=== PATIENT | female | born 1985 | race African-American/Black ===

== ENCOUNTER 2023-01-28 19:12 | Inpatient (IN) ==
--- NOTE | 2023-01-28 20:14 | Obstetrical Progress Note ---
Date of Service January 28, 2023 Assessment & Plan (1) Supervision of elderly primigravida: Plan: Welch bulb inserted. Cervix closed/50/-3. FHT Cat 1, toco rare. Tolerated well. Reviewed postprocedure care instructions. Will monitor FHT for one hour, if Cat 1 FHT and feeling well, ok for DC home. Subjective 37yo @ 40 3/7, here for welch balloon insertion prior to IOL. Feeling well. Hepatitis C Positive not on treatment no provider at this time RNA tests negative--francia MICHAEL *Weekly NST's @ 36wks. Rubella non immune *PPX MMR Medical Marijuana Card Covid Vaccine x 3 Late presentation Chronic Moderate Anemia in *HEME consult Results & Data Vital Signs (Past 12 Hours) Vital Signs Temp Pulse Resp BP 01/28/23 19:28 81 147/87 H 01/28/23 19:16 36.9 C 18 PG Care Time/CCT Total # of Minutes Spent Total Time Spent with Patient: Total time spent is greater than 50% in coordination of care (as documented) at patient's floor/unit and/or counseling patient: Coding Level of Care Code None Diagnoses Supervision of elderly primigravida O09.519
[2023-01-28] MEDS ORDERED: LIDOCAINE 1% LOCAL 20 ML VIAL INFIL PRN (21:12)
[2023-01-28] MEDS ORDERED: OXYTOCIN 30 UNITS/500 ML BAG IV PRN ×2 (21:12)
--- NOTE | 2023-01-28 21:18 | History & Physical Report ---
Date of Service January 28, 2023 Assessment & Plan (1) Supervision of elderly primigravida: Plan: I have recommended to Amira that she stay at L&D tonight, will check preeclampsia labs and continue monitoring. She is agreeable. Will order labs, admission, monitoring. Will allow her to eat dinner and then start pitocin. She is requesting a nicotine patch, smokes 5 cigarettes per day. History of Present Illness Chief Complaint: IOL Primary Care Provider: EUGENE Arthur 37yo @ 40 10/29, here for IOL. Hicks bulb was placed, tolerated insertion. There was a 3 minute deceleration that occurred with a prolonged contraction. The FHT returned to Cat 1, reactive. Blood pressures so far have all been elevated - 140-160s/70-80s. Allergies Allergy/AdvReac Type Severity Reaction Status Date / Time No Known Allergies Allergy Verified 01/28/23 14:57 Home Medications Medication Instructions Recorded Confirmed Type medical marijuana Card .Route 09/10/22 01/28/23 History prenat.vits,concha,tap-twsh-ssfog 1 tab PO DAILY #90 tabs 09/13/22 01/28/23 Rx ferrous gluconate 324 mg (38 mg 324 mg PO BID 11/07/22 01/28/23 History iron) tablet sertraline 50 mg tablet 50 mg PO DAILY #30 tabs 12/26/22 01/28/23 Rx Patient History Medical History Depression Family History (Updated 09/10/22 @ 07:44 by Bobbi Jade) Father Diabetes Mother Hypertension Grandmother Lung cancer Aunt Breast cancer Social History (Updated 09/10/22 @ 07:44 by Bobbi Jade) Smoking Status: Current every day smoker Cigarettes Per Day: 5; Hx Substance Use: Yes (alcohol) Substance Use Type Other:: not currently using marital status: Single marital status details: Maribel [phone] Current Living Situation: Family Current Living Situation Comment: lives alone, current occupational status: unemployed Feels Safe at Home: Yes Safety Concerns: Feels Safe At This Time Review of Systems All systems reviewed & are unremarkable except as noted in HPI & below Physical Exam Physical Exam: FHT Cat 1, with decel noted in HPI Uncertain rare SVE closed/50/-2 Constitutional: WD/WN, vitals as above Respiratory: normal respiratory effort, lungs clear to auscultation no respiratory distress Cardiovascular: Rate/Rhythm: regular rate and regular rhythm Gastrointestinal (Abdomen): Inspection/Auscultation: abdomen normal to inspection Percussion/Palpation: abdomen soft; abdomen nontender Gravid. No s/s chorio or abruption. Skin: no rashes, warm and dry Psychiatric: A+Ox3, euthymic affect Results & Data Vital Signs (Past 12 Hours) Vital Signs Temp Pulse Resp BP 01/28/23 20:58 77 163/85 H 01/28/23 20:31 73 142/75 H 01/28/23 19:28 81 147/87 H 01/28/23 19:16 36.9 C 18 Coding Level of Care Code None Diagnoses Supervision of elderly primigravida O09.519
[2023-01-28 21:55] LABS: Hemoglobin 9.7 g/dl (12.0-16.0); Mean Corpuscular Hemoglobin 24.6 pg (25.0-34.0); Mean Corpuscular Hgb Conc 33.4 g/dL (32.0-36.0); Mean Corpuscular Volume 73.4 fL (80.0-100.0); Mean Platelet Volume 10.7 fL (9.4-12.4); Platelet Count 260 K/uL (130-400); RDW Coefficient of Variation 14.6 % (11.5-14.5); RDW Standard Deviation 38.6 fL (36.4-46.3); Red Blood Count 3.95 M/uL (4.20-5.40); White Blood Count 7.27 K/ul (4.8-10.8)
[2023-01-28 22:14] LABS: Albumin Level 3.3 gm/dl (3.4-5.0); BUN Creatinine Ratio 11.7 (10-20); Bilirubin,Total 0.3 mg/dl (0.2-1.0); Creatinine Clr Calc Pharmacy 105.9 ml/min; Est GFR (African American) 115.9 ml/min; Globulin 3.3 gm/dl (2.5-4.0); Potassium 3.3 mmol/L (3.5-5.1); Total Protein 6.6 gm/dl (6.0-8.3)
[2023-01-28] MEDS: NICOTINE 14 MG/24 HR PATCH TD SCH (23:17)
[2023-01-29] MEDS: LACTATED RINGER'S 1,000 ML IV PRN ×4 (00:59→20:00)
[2023-01-29 01:07] LABS: Total Protein Urine Random < 4.0 mg/dl (0-11.9)
[2023-01-29] MEDS ORDERED: SODIUM CHLORIDE 0.9% 250 ML IV PRN (01:27)
[2023-01-29 01:35] LABS: Amphetamines+Metham, Urine Neg (Neg); Barbiturates, Urine Neg (Neg); Benzodiazepine, Urine Neg (Neg); Cocaine, Urine Neg (Neg); Creatinine Urine Random 23.4 mg/dl; MDMA (Ecstacy), Urine Neg (Neg); Methadone, Urine Neg (Neg); Opiate, Urine Neg (Neg); Phencyclidine, Urine Neg (Neg)
[2023-01-29] MEDS ORDERED: hydrALAZINE HCL 20 MG/ML VIAL IV ONE (02:05)
[2023-01-29] MEDS ORDERED: hydrALAZINE HCL 20 MG/ML VIAL IV STA (03:11)
[2023-01-29] MEDS ORDERED: hydrALAZINE HCL 20 MG/ML VIAL IV PRN (04:39)
--- NOTE | 2023-01-29 08:23 | Labor Progress Brief Note ---
Date of Service January 29, 2023 Subjective Awake, feeling ok. FHT Cat 1 [place] Q 2 SVE: welch bulb still in place BPs remain elevated, has rec'd 3 doses hydralazine overnight. Discussed with oncoming physician, will consider alternate med, could also consider trying to remove nicotine patch. Assessment & Plan Admission and Anticipated Discharge Date Admission Date: January 28, 2023 Results & Data Vital Signs (Past 12 Hours) Vital Signs Temp Pulse Resp BP 01/29/23 07:15 36.8 C 20 01/29/23 08:14 79 170/90 H 01/29/23 07:30 82 167/88 H 01/29/23 07:23 88 186/102 H 01/29/23 06:36 85 149/90 H 01/29/23 06:21 87 163/99 H 01/29/23 06:08 90 171/94 H 01/29/23 05:21 92 H 147/86 H 01/29/23 05:06 87 136/88 01/29/23 04:52 84 149/90 H 01/29/23 04:36 87 151/91 H 01/29/23 04:22 84 159/89 H 01/29/23 04:07 82 170/90 H 01/29/23 03:51 72 180/99 H 01/29/23 03:21 77 152/89 H 01/29/23 03:06 36.9 C 76 18 166/98 H 01/29/23 02:51 75 166/98 H 01/29/23 02:36 70 158/93 H 01/29/23 02:21 73 160/96 H 01/29/23 02:07 71 167/94 H 01/29/23 01:51 71 189/88 H 01/29/23 01:38 70 182/93 H 01/29/23 01:21 73 187/101 H 01/29/23 01:04 75 182/99 H 01/28/23 23:01 36.8 C 73 18 147/75 H 01/28/23 22:24 72 165/84 H 01/28/23 21:42 71 169/94 H 01/28/23 20:58 77 163/85 H 01/28/23 20:31 73 142/75 H Coding Level of Care Code None Diagnoses
[2023-01-29] MEDS ORDERED: MAG SULFATE 4GM BOLUS FROM BAG IV ONE (08:37)
--- NOTE | 2023-01-29 08:37 | Labor Progress Brief Note ---
Date of Service January 29, 2023 Subjective Patient notes she is feeling ok. no s/s of pet, however her pressures continue to be high and some in the severe range. Assessment & Plan (1) Supervision of elderly primigravida: (2) Preeclampsia: Plan Pressures continue to be elevated, not responsive to hydralazine. No s/s of pet and labs have been normal, but has had blood pressures in the severe range., persistent overnight despite treatment. I am calling her pet with severe features (bp) and will be treating with mag. r/b/se discussed with the patient. I do not think that the nicotene patch is the primary issue as pressures were elevated before the patch was placed. Patient expresses understanding. Will continue pit. fetus category one. epidural on demand. anticipate vaginal delivery. Admission and Anticipated Discharge Date Admission Date: January 28, 2023 Physical Exam Physical Exam: pulled bulb out cx--/-2 toco--q2-4min, pit at 11 efm--130s with mod variabiltiy, accels to 150s, no decels Results & Data Vital Signs (Past 12 Hours) Vital Signs Temp Pulse Resp BP 01/29/23 07:15 36.8 C 20 01/29/23 08:14 79 170/90 H 01/29/23 07:30 82 167/88 H 01/29/23 07:23 88 186/102 H 01/29/23 06:36 85 149/90 H 01/29/23 06:21 87 163/99 H 01/29/23 06:08 90 171/94 H 01/29/23 05:21 92 H 147/86 H 01/29/23 05:06 87 136/88 01/29/23 04:52 84 149/90 H 01/29/23 04:36 87 151/91 H 01/29/23 04:22 84 159/89 H 01/29/23 04:07 82 170/90 H 01/29/23 03:51 72 180/99 H 01/29/23 03:21 77 152/89 H 01/29/23 03:06 36.9 C 76 18 166/98 H 01/29/23 02:51 75 166/98 H 01/29/23 02:36 70 158/93 H 01/29/23 02:21 73 160/96 H 01/29/23 02:07 71 167/94 H 01/29/23 01:51 71 189/88 H 01/29/23 01:38 70 182/93 H 01/29/23 01:21 73 187/101 H 01/29/23 01:04 75 182/99 H 01/28/23 23:01 36.8 C 73 18 147/75 H 01/28/23 22:24 72 165/84 H 01/28/23 21:42 71 169/94 H 01/28/23 20:58 77 163/85 H Coding Level of Care Code None Diagnoses Supervision of elderly primigravida O09.519 Preeclampsia O14.90
[2023-01-29] MEDS: MAGNESIUM SULFATE / WTR 40 GM/1,000 ML BAG IV SCH (09:05)
[2023-01-29] MEDS: NICOTINE 14 MG/24 HR PATCH TD SCH (09:32)
[2023-01-29] MEDS ORDERED: LABETALOL HCL IV 5 MG/ML 20ML IV STA (10:03)
--- NOTE | 2023-01-29 10:05 | Communication Note ---
Date of Service: January 29, 2023 Patient resting in the room. She denies significant discomfort. Denies s/s of PET. Has received her bolus of mag and now on 2/hr. Her pressures continue to be elevated. Plan to treat with labetolol.
[2023-01-29] MEDS ORDERED: Nursing to Pharmacy Communication SCH (11:00)
[2023-01-29] MEDS ORDERED: BUPIVACAINE 0.25% PF 30 ML VIAL ONE (12:02)
[2023-01-29] MEDS ORDERED: SODIUM CHLORIDE 0.9% PF INJ 10 ML VIAL ONE (12:02)
[2023-01-29] MEDS ORDERED: ePHEDrine sulfate 50 MG/ML AMP ONE (12:02)
[2023-01-29] MEDS ORDERED: fentaNYL citrate PF 100 MCG/2 ML VIAL ONE (12:02)
[2023-01-29] MEDS ORDERED: LIDOCAINE 2%/EPINEPHRINE 1:200,000 20 ML PF ONE (12:03)
[2023-01-29] MEDS ORDERED: fentaNYL 2MCG/ML ROPIVACAINE 1.25MG/ML 100 ML BAG EPI ONE (12:03)
[2023-01-29] MEDS ORDERED: fentaNYL 2MCG/ML ROPIVACAINE 1.25MG/ML 100 ML BAG EPI PRN (12:25)
[2023-01-29] MEDS ORDERED: BUPIVACAINE 0.25% PF 30 ML VIAL EPI PRN (12:25)
[2023-01-29] MEDS ORDERED: LIDOCAINE 2% MPF LOCAL 5 ML VIAL EPI PRN (12:25)
[2023-01-29] MEDS ORDERED: NALOXONE HCL 0.4 MG/1 ML VIAL/CARP IV PRN (12:25)
[2023-01-29] MEDS ORDERED: SODIUM CHLORIDE 0.9% PF INJ 10 ML VIAL EPI STA (12:25)
[2023-01-29] MEDS ORDERED: BUPIVACAINE 0.25% PF 30 ML VIAL EPI STA (12:25)
[2023-01-29] MEDS ORDERED: SODIUM CHLORIDE 0.9% PF INJ 10 ML VIAL EPI PRN (12:25)
[2023-01-29] MEDS ORDERED: NALBUPHINE HCL INJ 10 MG/ML AMP IV PRN (12:25)
[2023-01-29] MEDS ORDERED: fentaNYL citrate PF 100 MCG/2 ML VIAL EPI STA (12:25)
[2023-01-29] MEDS ORDERED: LIDOCAINE 2%/EPINEPHRINE 1:200,000 20 ML PF EPI STA (12:25)
[2023-01-29] MEDS ORDERED: fentaNYL citrate PF 100 MCG/2 ML VIAL EPI PRN (12:25)
[2023-01-29] MEDS ORDERED: NALOXONE HCL 1 MG in SODIUM CHLORIDE 0.9% 1000ML 1,000 ML IV PRN (12:25)
[2023-01-29] MEDS ORDERED: ROPIVACAINE 0.5% PF 5 MG/ML 20 ML VIAL EPI PRN (12:25)
[2023-01-29] MEDS ORDERED: ePHEDrine sulfate 50 MG/ML AMP IV PRN (12:25)
[2023-01-29] MEDS ORDERED: diphenhydrAMINE 50 MG/ML VIAL IV PRN (12:25)
--- NOTE | 2023-01-29 12:28 | Anesthesiology Consultation ---
Date of Service January 29, 2023 Assessment & Plan (1) Encounter for pre-operative examination: Chart Review Chart Review: Patient NOT seen in Pre Admission Testing and Acceptable Risk for Labor Epidural Consults Requested none History Height/Weight Height: 5 ft 5 in Weight: 78.925 kg Allergies Allergy/AdvReac Type Severity Reaction Status Date / Time No Known Allergies Allergy Verified 01/28/23 14:57 Medications Home Medications Medication Instructions Recorded Confirmed Last Taken medical marijuana Card .Route 09/10/22 01/28/23 Unknown prenat.vits,concha,yke-ixds-ishkw 1 tab PO DAILY #90 tabs 09/13/22 01/28/23 01/28/23 ferrous gluconate 324 mg (38 mg 324 mg PO BID 11/07/22 01/28/23 01/28/23 iron) tablet sertraline 50 mg tablet 50 mg PO DAILY #30 tabs 12/26/22 01/28/23 01/28/23 Active Medications Generic Name Dose Route Start Last Admin Trade Name Freq PRN Reason Stop Dose Admin Lactated Ringer's 1,000 mls @ 125 mls/hr 01/28/23 21:12 01/29/23 12:00 Lr IV 01/30/23 21:11 999 mls/hr .Q8H PRN Infusion L&D Protocol Protocol Oxytocin 30 units in 500 mls @ 19 mls/hr 01/28/23 21:12 01/29/23 11:15 Pitocin IV 01/30/23 21:11 1.14 units/hr .Q24H PRN 19 mls/hr Labor Induction/Augmentation Titration Protocol 1.14 UNITS/HR Magnesium Sulfate 40 gm in 1,000 mls @ 50 mls/hr 01/29/23 08:45 01/29/23 09:35 Magnesium Sulfate / Wtr IV 02/28/23 08:44 50 mls/hr .Q20H YANELIS Infusion Past Medical History Medical History (Updated 01/29/23 @ 12:28 by Vishal Delgadillo MD) Depression Encounter for pre-operative examination Exercise / Class Metabolic Activity II 4-5 Yardwork/Stairs/Walk up hill Past Family History Family History Father Diabetes Mother Hypertension Grandmother Lung cancer Aunt Breast cancer Past Anesthesia History No Hx of Anesthesia Complications and No Family Hx of Anesthesia Complications Social History Smoking Status: Current every day smoker tobacco type: cigarettes Smoking cigarettes per day: 5 Hx Substance Use: Yes (alcohol) substance use type: marijuana Substance Use Type Other:: not currently using Physical Exam Vital Signs Last Vital Signs Temp 36.9 C 01/29/23 11:06 Pulse 86 01/29/23 13:03 Resp 20 01/29/23 12:10 BP 176/98 H 01/29/23 13:03 Pulse Ox 100 01/29/23 13:01 Testing Laboratory Results 01/28/23 21:25 01/28/23 21:25 Blood Type O Positive 01/28/23 21:25 Antibody Screen NEGATIVE 01/28/23 21:25
[2023-01-29] MEDS: ONDANSETRON INJ 2 MG/ML 2 ML VIAL IV PRN ×2 (13:51→20:17)
--- NOTE | 2023-01-29 15:01 | Labor Progress Brief Note ---
Date of Service January 29, 2023 Subjective comfortable, sleepy Assessment & Plan (1) Preeclampsia: (2) Supervision of elderly primigravida: Plan continue current management. fetus category one. anticipate Admission and Anticipated Discharge Date Admission Date: January 28, 2023 Physical Exam Physical Exam: cx--/-2 arom--clear toco-q2-4, pit at 19 efm--130s with mod variability, small accels , no decels Results & Data Vital Signs (Past 12 Hours) Vital Signs Temp Pulse Resp BP Pulse Ox 01/29/23 14:10 20 01/29/23 12:10 20 01/29/23 09:10 20 01/29/23 13:10 20 01/29/23 11:06 36.9 C 01/29/23 11:10 01/29/23 10:10 20 01/29/23 07:15 20 01/29/23 07:15 36.8 C 20 01/29/23 14:56 83 100 01/29/23 14:55 83 169/80 H 01/29/23 14:51 76 100 01/29/23 14:46 67 100 01/29/23 14:41 69 100 01/29/23 14:39 70 151/77 H 01/29/23 14:36 67 100 01/29/23 14:30 20 01/29/23 14:30 20 01/29/23 14:31 74 100 01/29/23 14:26 73 100 01/29/23 14:25 69 151/82 H 01/29/23 14:21 77 100 01/29/23 14:16 78 100 01/29/23 14:11 75 100 01/29/23 14:00 20 01/29/23 14:00 20 01/29/23 14:10 80 143/81 H 01/29/23 14:06 79 100 01/29/23 14:01 84 99 01/29/23 13:56 94 H 100 01/29/23 13:54 94 H 134/77 01/29/23 13:51 124 H 100 01/29/23 13:46 123 H 100 01/29/23 13:41 119 H 100 01/29/23 13:38 88 121/73 01/29/23 13:36 88 100 01/29/23 13:31 95 H 20 100 01/29/23 13:30 101 H 125/83 01/29/23 13:26 113 H 100 01/29/23 13:23 99 H 164/98 H 01/29/23 13:22 93 H 152/87 H 01/29/23 13:21 89 100 01/29/23 13:19 87 155/89 H 01/29/23 13:18 86 148/89 H 01/29/23 13:16 78 100 01/29/23 13:15 74 20 163/96 H 01/29/23 13:13 81 162/102 H 01/29/23 13:11 85 152/95 H 100 01/29/23 13:09 84 170/85 H 01/29/23 13:07 80 163/103 H 01/29/23 13:06 100 01/29/23 13:06 82 01/29/23 13:06 80 162/97 H 01/29/23 13:03 86 176/98 H 01/29/23 13:01 87 100 01/29/23 13:00 86 168/97 H 01/29/23 12:57 85 189/103 H 01/29/23 12:56 93 H 99 01/29/23 12:51 87 100 01/29/23 12:49 87 170/102 H 01/29/23 12:46 90 100 01/29/23 12:41 85 100 01/29/23 12:36 82 100 01/29/23 12:34 90 169/93 H 01/29/23 12:31 80 100 01/29/23 12:26 85 100 01/29/23 12:21 88 100 01/29/23 12:20 81 175/79 H 01/29/23 12:16 89 100 01/29/23 12:11 83 100 01/29/23 12:06 88 100 01/29/23 12:05 86 166/81 H 01/29/23 12:01 87 100 01/29/23 11:56 84 100 01/29/23 11:51 81 100 01/29/23 11:49 83 154/82 H 01/29/23 11:46 88 99 01/29/23 11:41 80 99 01/29/23 11:36 85 100 01/29/23 11:34 84 140/74 01/29/23 11:31 86 99 01/29/23 11:26 80 100 01/29/23 11:21 81 100 01/29/23 11:19 86 143/75 H 01/29/23 11:16 82 99 01/29/23 11:11 86 99 01/29/23 11:06 90 99 01/29/23 11:04 85 140/75 01/29/23 11:01 80 100 01/29/23 10:56 89 99 01/29/23 10:51 84 99 01/29/23 10:49 88 156/90 H 01/29/23 10:46 88 99 01/29/23 10:41 89 99 01/29/23 10:36 81 99 01/29/23 10:31 78 100 01/29/23 10:32 81 145/89 H 01/29/23 10:28 77 159/90 H 01/29/23 10:26 88 100 01/29/23 10:21 80 173/90 H 100 01/29/23 10:16 84 100 01/29/23 10:11 91 H 100 01/29/23 10:06 80 163/102 H 100 01/29/23 10:02 81 166/101 H 01/29/23 10:01 80 100 01/29/23 09:56 96 H 100 01/29/23 09:51 82 100 01/29/23 09:52 86 20 182/108 H 01/29/23 09:46 82 100 01/29/23 09:41 83 100 01/29/23 09:36 99 H 20 165/94 H 100 01/29/23 09:31 96 H 99 01/29/23 09:26 93 H 100 01/29/23 09:21 85 100 01/29/23 09:22 85 20 169/93 H 01/29/23 09:16 87 100 01/29/23 09:11 97 H 100 01/29/23 09:06 36.8 C 90 20 184/111 H 98 01/29/23 08:44 85 189/107 H 01/29/23 08:14 79 170/90 H 01/29/23 07:30 82 167/88 H 01/29/23 07:23 88 186/102 H 01/29/23 06:36 85 149/90 H 01/29/23 06:21 87 163/99 H 01/29/23 06:08 90 171/94 H 01/29/23 05:21 92 H 147/86 H 01/29/23 05:06 87 136/88 01/29/23 04:52 84 149/90 H 01/29/23 04:36 87 151/91 H 01/29/23 04:22 84 159/89 H 01/29/23 04:07 82 170/90 H 01/29/23 03:51 72 180/99 H 01/29/23 03:21 77 152/89 H 01/29/23 03:06 36.9 C 76 18 166/98 H Coding Level of Care Code None Diagnoses Preeclampsia O14.90 Supervision of elderly primigravida O09.519
--- NOTE | 2023-01-29 18:25 | Labor Progress Brief Note ---
Date of Service January 29, 2023 Subjective Got epidural. Comfortable. Assessment & Plan (1) Preeclampsia: (2) Supervision of elderly primigravida: Plan No change, iupc placed. cx feels a little swollen. fetus category one. aim for 200mvus. Blood pressures have remained reasonable, mostly 150/80-90. Admission and Anticipated Discharge Date Admission Date: January 28, 2023 Physical Exam Physical Exam: cx--3-4/90/-2 iupc placed. toco--q3-4, pit at 19 efm--130s with mod variabiltiy, small accels. occasional early Results & Data Vital Signs (Past 12 Hours) Vital Signs Temp Pulse Resp BP Pulse Ox 01/29/23 16:10 20 01/29/23 17:10 20 01/29/23 17:00 36.9 C 01/29/23 15:00 37.0 C 01/29/23 15:10 20 01/29/23 14:10 01/29/23 12:10 01/29/23 09:10 20 01/29/23 13:10 01/29/23 11:06 36.9 C 20 01/29/23 11:10 01/29/23 10:10 20 01/29/23 07:15 20 01/29/23 07:15 36.8 C 20 01/29/23 18:21 88 01/29/23 18:16 78 99 01/29/23 18:11 79 100 01/29/23 18:08 77 151/80 H 01/29/23 18:06 80 99 01/29/23 18:01 73 01/29/23 17:56 77 01/29/23 17:54 70 161/76 H 01/29/23 17:51 72 100 01/29/23 17:46 74 01/29/23 17:41 88 100 01/29/23 17:39 80 143/83 H 01/29/23 17:36 77 100 01/29/23 17:31 78 100 01/29/23 17:26 82 100 01/29/23 17:25 76 158/79 H 01/29/23 17:21 86 100 01/29/23 17:16 73 100 01/29/23 17:11 76 100 01/29/23 17:09 77 168/97 H 01/29/23 17:06 78 100 01/29/23 17:01 80 20 100 01/29/23 16:56 83 100 01/29/23 16:54 80 158/86 H 01/29/23 16:51 79 100 01/29/23 16:46 76 100 01/29/23 16:41 86 99 01/29/23 16:40 83 143/72 H 01/29/23 16:36 91 H 100 01/29/23 16:31 80 20 99 01/29/23 16:26 77 98 01/29/23 16:24 77 138/84 01/29/23 16:21 75 99 01/29/23 16:16 78 100 01/29/23 16:11 73 100 01/29/23 16:09 74 150/83 H 01/29/23 16:06 78 100 01/29/23 16:01 78 20 100 01/29/23 15:56 81 100 01/29/23 15:55 78 143/92 H 01/29/23 15:51 75 100 01/29/23 15:46 76 100 01/29/23 15:41 77 100 01/29/23 15:38 74 144/81 H 01/29/23 15:36 79 100 01/29/23 15:31 77 20 100 01/29/23 15:26 79 100 01/29/23 15:25 81 145/86 H 01/29/23 15:21 75 100 01/29/23 15:16 73 100 01/29/23 15:11 73 100 01/29/23 15:09 75 147/93 H 01/29/23 15:06 81 100 01/29/23 15:01 92 H 100 01/29/23 14:56 83 100 01/29/23 14:55 83 169/80 H 01/29/23 14:51 76 100 01/29/23 14:46 67 100 01/29/23 14:41 69 100 01/29/23 14:39 70 151/77 H 01/29/23 14:36 67 100 01/29/23 14:30 20 01/29/23 14:30 20 01/29/23 14:31 74 100 01/29/23 14:26 73 100 01/29/23 14:25 69 151/82 H 01/29/23 14:21 77 100 01/29/23 14:16 78 100 01/29/23 14:11 75 100 01/29/23 14:00 20 01/29/23 14:00 20 01/29/23 14:10 80 143/81 H 01/29/23 14:06 79 100 01/29/23 14:01 84 99 01/29/23 13:56 94 H 100 01/29/23 13:54 94 H 134/77 01/29/23 13:51 124 H 100 01/29/23 13:46 123 H 100 01/29/23 13:41 119 H 100 01/29/23 13:38 88 121/73 01/29/23 13:36 88 100 01/29/23 13:31 95 H 20 100 01/29/23 13:30 101 H 125/83 01/29/23 13:26 113 H 100 01/29/23 13:23 99 H 164/98 H 01/29/23 13:22 93 H 152/87 H 01/29/23 13:21 89 100 01/29/23 13:19 87 155/89 H 01/29/23 13:18 86 148/89 H 01/29/23 13:16 78 100 01/29/23 13:15 74 20 163/96 H 01/29/23 13:13 81 162/102 H 01/29/23 13:11 85 152/95 H 100 01/29/23 13:09 84 170/85 H 01/29/23 13:07 80 163/103 H 01/29/23 13:06 100 01/29/23 13:06 82 01/29/23 13:06 80 162/97 H 01/29/23 13:03 86 176/98 H 01/29/23 13:01 87 100 01/29/23 13:00 86 168/97 H 01/29/23 12:57 85 189/103 H 01/29/23 12:56 93 H 99 01/29/23 12:51 87 100 01/29/23 12:49 87 170/102 H 01/29/23 12:46 90 100 01/29/23 12:41 85 100 01/29/23 12:36 82 100 01/29/23 12:34 90 169/93 H 01/29/23 12:31 80 100 06/07/23 12:26 85 100 01/29/23 12:21 88 100 01/29/23 12:20 81 175/79 H 01/29/23 12:16 89 100 01/29/23 12:11 83 100 01/29/23 12:06 88 100 01/29/23 12:05 86 166/81 H 01/29/23 12:01 87 100 01/29/23 11:56 84 100 01/29/23 11:51 81 100 01/29/23 11:49 83 154/82 H 01/29/23 11:46 88 99 01/29/23 11:41 80 99 01/29/23 11:36 85 100 01/29/23 11:34 84 140/74 01/29/23 11:31 86 99 01/29/23 11:26 80 100 01/29/23 11:21 81 100 01/29/23 11:19 86 143/75 H 01/29/23 11:16 82 99 01/29/23 11:11 86 99 01/29/23 11:06 90 99 01/29/23 11:04 85 140/75 01/29/23 11:01 80 100 01/29/23 10:56 89 99 01/29/23 10:51 84 99 01/29/23 10:49 88 156/90 H 01/29/23 10:46 88 99 01/29/23 10:41 89 99 01/29/23 10:36 81 99 01/29/23 10:31 78 100 01/29/23 10:32 81 145/89 H 01/29/23 10:28 77 159/90 H 01/29/23 10:26 88 100 01/29/23 10:21 80 173/90 H 100 01/29/23 10:16 84 100 01/29/23 10:11 91 H 100 01/29/23 10:06 80 163/102 H 100 01/29/23 10:02 81 166/101 H 01/29/23 10:01 80 100 01/29/23 09:56 96 H 100 01/29/23 09:51 82 100 01/29/23 09:52 86 20 182/108 H 01/29/23 09:46 82 100 01/29/23 09:41 83 100 01/29/23 09:36 99 H 20 165/94 H 100 01/29/23 09:31 96 H 99 01/29/23 09:26 93 H 100 01/29/23 09:21 85 100 01/29/23 09:22 85 20 169/93 H 01/29/23 09:16 87 100 01/29/23 09:11 97 H 100 01/29/23 09:06 36.8 C 90 20 184/111 H 98 01/29/23 08:44 85 189/107 H 01/29/23 08:14 79 170/90 H 01/29/23 07:30 82 167/88 H 01/29/23 07:23 88 186/102 H 01/29/23 06:36 85 149/90 H Coding Level of Care Code None Diagnoses Preeclampsia O14.90 Supervision of elderly primigravida O09.519
[2023-01-29] MEDS ORDERED: NURSING L&D Epidural Breakthrough Pain Update ONE (21:25)
--- NOTE | 2023-01-29 21:34 | Labor Progress Brief Note ---
Date of Service January 29, 2023 Subjective uncomfortable with contractions now Assessment & Plan (1) Preeclampsia: (2) Supervision of elderly primigravida: Plan bps have been stable overall, continue to monitor closely, mag running. fetus overall reassuring. redose epidural. Admission and Anticipated Discharge Date Admission Date: January 28, 2023 Physical Exam Physical Exam: cx--/-2 toco--q2-4min, pit at 19, mvus>200 efm--130s wtih mod variability, accels present, early variable with some contractions. Results & Data Vital Signs (Past 12 Hours) Vital Signs Temp Pulse Resp BP Pulse Ox O2 Del Method 01/29/23 19:20 37.1 C 18 01/29/23 19:20 18 01/29/23 19:20 Room Air 01/29/23 18:10 20 01/29/23 16:10 20 01/29/23 17:10 20 01/29/23 17:00 36.9 C 01/29/23 15:00 37.0 C 01/29/23 15:10 20 01/29/23 14:10 20 01/29/23 12:10 20 01/29/23 13:10 20 01/29/23 11:06 36.9 C 20 01/29/23 11:10 20 01/29/23 10:10 20 01/29/23 21:26 104 H 99 01/29/23 21:23 111 H 171/83 H 01/29/23 21:21 128 H 99 01/29/23 21:16 97 H 100 01/29/23 21:11 88 99 01/29/23 21:09 88 156/80 H 01/29/23 21:06 87 100 01/29/23 21:01 85 100 01/29/23 20:56 87 100 01/29/23 20:53 89 173/99 H 01/29/23 20:51 89 100 01/29/23 20:46 86 100 01/29/23 20:41 93 H 100 01/29/23 20:39 89 153/97 H 01/29/23 20:36 88 100 01/29/23 20:31 93 H 98 01/29/23 20:26 93 H 99 01/29/23 20:21 106 H 100 01/29/23 20:16 98 H 100 01/29/23 20:11 124 H 100 01/29/23 20:08 90 138/68 01/29/23 20:06 86 100 01/29/23 20:01 83 100 01/29/23 19:56 85 100 01/29/23 19:54 84 163/77 H 01/29/23 19:51 85 100 01/29/23 19:46 90 100 01/29/23 19:41 98 H 100 01/29/23 19:36 91 H 100 01/29/23 19:31 94 H 100 01/29/23 19:26 91 H 100 01/29/23 19:24 96 H 174/104 H 01/29/23 19:21 89 100 01/29/23 19:16 92 H 100 01/29/23 19:11 89 100 01/29/23 19:08 89 168/94 H 01/29/23 19:06 97 H 100 01/29/23 19:01 90 99 01/29/23 18:56 87 99 01/29/23 18:54 82 176/95 H 01/29/23 18:51 85 100 01/29/23 18:46 84 100 01/29/23 18:41 98 H 96 01/29/23 18:38 37.0 C 83 20 165/92 H 01/29/23 18:36 98 H 100 01/29/23 18:31 88 100 01/29/23 18:26 86 100 01/29/23 18:24 88 175/94 H 01/29/23 18:21 88 100 01/29/23 18:16 78 99 01/29/23 18:11 79 100 01/29/23 18:08 77 151/80 H 01/29/23 18:06 80 99 01/29/23 18:01 73 100 01/29/23 17:56 77 100 01/29/23 17:54 70 161/76 H 01/29/23 17:51 72 100 01/29/23 17:46 74 100 01/29/23 17:41 88 100 01/29/23 17:39 80 143/83 H 01/29/23 17:36 77 100 01/29/23 17:31 78 100 01/29/23 17:26 82 100 01/29/23 17:25 76 158/79 H 01/29/23 17:21 86 100 01/29/23 17:16 73 100 01/29/23 17:11 76 100 01/29/23 17:09 77 168/97 H 01/29/23 17:06 78 100 01/29/23 17:01 80 20 100 01/29/23 16:56 83 100 01/29/23 16:54 80 158/86 H 01/29/23 16:51 79 100 01/29/23 16:46 76 100 01/29/23 16:41 86 99 01/29/23 16:40 83 143/72 H 01/29/23 16:36 91 H 100 01/29/23 16:31 80 20 99 01/29/23 16:26 77 98 01/29/23 16:24 77 138/84 01/29/23 16:21 75 99 01/29/23 16:16 78 100 01/29/23 16:11 73 100 01/29/23 16:09 74 150/83 H 01/29/23 16:06 78 100 01/29/23 16:01 78 20 100 01/29/23 15:56 81 100 01/29/23 15:55 78 143/92 H 01/29/23 15:51 75 100 01/29/23 15:46 76 100 01/29/23 15:41 77 100 01/29/23 15:38 74 144/81 H 01/29/23 15:36 79 100 01/29/23 15:31 77 20 100 01/29/23 15:26 79 100 01/29/23 15:25 81 145/86 H 01/29/23 15:21 75 100 01/29/23 15:16 73 100 01/29/23 15:11 73 100 01/29/23 15:09 75 147/93 H 01/29/23 15:06 81 100 01/29/23 15:01 92 H 100 01/29/23 14:56 83 100 01/29/23 14:55 83 169/80 H 01/29/23 14:51 76 100 01/29/23 14:46 67 100 01/29/23 14:41 69 100 01/29/23 14:39 70 151/77 H 01/29/23 14:36 67 100 01/29/23 14:30 20 01/29/23 14:30 20 06/07/23 14:31 74 100 01/29/23 14:26 73 100 01/29/23 14:25 69 151/82 H 01/29/23 14:21 77 100 01/29/23 14:16 78 100 01/29/23 14:11 75 100 01/29/23 14:00 20 01/29/23 14:00 20 01/29/23 14:10 80 143/81 H 01/29/23 14:06 79 100 01/29/23 14:01 84 99 01/29/23 13:56 94 H 100 01/29/23 13:54 94 H 134/77 01/29/23 13:51 124 H 100 01/29/23 13:46 123 H 100 01/29/23 13:41 119 H 100 01/29/23 13:38 88 121/73 01/29/23 13:36 88 100 01/29/23 13:31 95 H 20 100 01/29/23 13:30 101 H 125/83 01/29/23 13:26 113 H 100 01/29/23 13:23 99 H 164/98 H 01/29/23 13:22 93 H 152/87 H 01/29/23 13:21 89 100 01/29/23 13:19 87 155/89 H 01/29/23 13:18 86 148/89 H 01/29/23 13:16 78 100 01/29/23 13:15 74 20 163/96 H 01/29/23 13:13 81 162/102 H 01/29/23 13:11 85 152/95 H 100 01/29/23 13:09 84 170/85 H 01/29/23 13:07 80 163/103 H 01/29/23 13:06 100 01/29/23 13:06 82 01/29/23 13:06 80 162/97 H 01/29/23 13:03 86 176/98 H 01/29/23 13:01 87 100 01/29/23 13:00 86 168/97 H 01/29/23 12:57 85 189/103 H 01/29/23 12:56 93 H 99 01/29/23 12:51 87 100 01/29/23 12:49 87 170/102 H 01/29/23 12:46 90 100 01/29/23 12:41 85 100 01/29/23 12:36 82 100 01/29/23 12:34 90 169/93 H 01/29/23 12:31 80 100 01/29/23 12:26 85 100 01/29/23 12:21 88 100 01/29/23 12:20 81 175/79 H 01/29/23 12:16 89 100 01/29/23 12:11 83 100 01/29/23 12:06 88 100 01/29/23 12:05 86 166/81 H 01/29/23 12:01 87 100 01/29/23 11:56 84 100 01/29/23 11:51 81 100 01/29/23 11:49 83 154/82 H 01/29/23 11:46 88 99 01/29/23 11:41 80 99 01/29/23 11:36 85 100 01/29/23 11:34 84 140/74 01/29/23 11:31 86 99 01/29/23 11:26 80 100 01/29/23 11:21 81 100 01/29/23 11:19 86 143/75 H 01/29/23 11:16 82 99 01/29/23 11:11 86 99 01/29/23 11:06 90 99 01/29/23 11:04 85 140/75 01/29/23 11:01 80 100 01/29/23 10:56 89 99 01/29/23 10:51 84 99 01/29/23 10:49 88 156/90 H 01/29/23 10:46 88 99 01/29/23 10:41 89 99 01/29/23 10:36 81 99 01/29/23 10:31 78 100 01/29/23 10:32 81 145/89 H 01/29/23 10:28 77 159/90 H 01/29/23 10:26 88 100 01/29/23 10:21 80 173/90 H 100 01/29/23 10:16 84 100 01/29/23 10:11 91 H 100 01/29/23 10:06 80 163/102 H 100 01/29/23 10:02 81 166/101 H 01/29/23 10:01 80 100 01/29/23 09:56 96 H 100 01/29/23 09:51 82 100 01/29/23 09:52 86 20 182/108 H 01/29/23 09:46 82 100 01/29/23 09:41 83 100 01/29/23 09:36 99 H 20 165/94 H 100 Coding Level of Care Code None Diagnoses Preeclampsia O14.90 Supervision of elderly primigravida O09.519
--- NOTE | 2023-01-29 22:18 | Communication Note ---
Date of Service: January 29, 2023 pt with increasing pain despite hitting her bolus function. gave her a total of 8ml of 0.25% bup in divided doses via epidural. also gave additional 2ml of 2% lidocaine. vss. pain improved. patient able to fall asleep.
[2023-01-29] MEDS ORDERED: PROMETHAZINE HCL 6.25 MG in SODIUM CHLORIDE 0.9% 50 ML IV PRN (23:19)
--- NOTE | 2023-01-29 23:23 | Labor Progress Brief Note ---
Date of Service January 29, 2023 Subjective uncomfortable. Got a redose which worked for a few minutes and now painful. Describes in her butt. Assessment & Plan (1) Preeclampsia: (2) Supervision of elderly primigravida: Plan making good progress now. Will consult anesthesia again. fetus overall category one. bps more elevated but she is uncomfortable and writhing in bed at times so suspect that is contributing. Admission and Anticipated Discharge Date Admission Date: January 28, 2023 Physical Exam Physical Exam: cx--8/100/0 toco--q2-4min, pit at 19 efm--120s with mod varability, small accels, +scalp stim, decels with vomiting Results & Data Vital Signs (Past 12 Hours) Vital Signs Temp Pulse Resp BP Pulse Ox O2 Del Method 01/29/23 19:20 37.1 C 18 01/29/23 19:20 18 01/29/23 19:20 Room Air 01/29/23 18:10 20 01/29/23 16:10 20 01/29/23 17:10 20 01/29/23 17:00 36.9 C 01/29/23 15:00 37.0 C 01/29/23 15:10 20 01/29/23 14:10 20 01/29/23 12:10 20 01/29/23 13:10 20 01/29/23 23:14 101 H 97 01/29/23 23:09 103 H 98 01/29/23 23:04 110 H 100 01/29/23 22:59 120 H 100 01/29/23 22:55 96 H 180/102 H 01/29/23 22:54 99 H 100 01/29/23 22:49 92 H 98 01/29/23 22:44 94 H 100 01/29/23 22:39 101 H 100 01/29/23 22:38 100 H 147/101 H 01/29/23 22:34 93 H 99 01/29/23 22:29 97 H 99 01/29/23 22:24 95 H 99 01/29/23 22:16 98 H 99 01/29/23 22:11 94 H 97 01/29/23 22:08 99 H 157/83 H 01/29/23 22:06 98 H 97 01/29/23 22:03 100 H 167/88 H 01/29/23 22:01 98 H 97 01/29/23 21:59 97 H 151/86 H 01/29/23 21:56 95 01/29/23 21:56 101 H 01/29/23 21:56 99 H 93 01/29/23 21:55 100 H 178/103 H 01/29/23 21:51 101 H 98 01/29/23 21:52 100 H 168/93 H 01/29/23 21:49 100 H 169/91 H 01/29/23 21:46 99 H 96 01/29/23 21:47 100 H 176/93 H 01/29/23 21:43 100 H 160/95 H 01/29/23 21:41 98 H 98 01/29/23 21:40 104 H 141/105 H 01/29/23 21:36 109 H 99 01/29/23 21:31 110 H 99 01/29/23 21:26 104 H 99 01/29/23 21:23 111 H 171/83 H 01/29/23 21:21 128 H 99 01/29/23 21:16 97 H 100 01/29/23 21:11 88 99 01/29/23 21:09 36.9 C 88 18 156/80 H 01/29/23 21:06 87 100 01/29/23 21:01 85 100 01/29/23 20:56 87 100 01/29/23 20:53 89 173/99 H 01/29/23 20:51 89 100 01/29/23 20:46 86 100 01/29/23 20:41 93 H 100 01/29/23 20:39 89 153/97 H 01/29/23 20:36 88 100 01/29/23 20:31 93 H 98 01/29/23 20:26 93 H 99 01/29/23 20:21 106 H 100 01/29/23 20:16 98 H 100 01/29/23 20:11 124 H 100 01/29/23 20:08 90 138/68 01/29/23 20:06 86 100 01/29/23 20:01 83 100 01/29/23 19:56 85 100 01/29/23 19:54 84 163/77 H 01/29/23 19:51 85 100 01/29/23 19:46 90 100 01/29/23 19:41 98 H 100 06/07/23 19:36 91 H 100 01/29/23 19:31 94 H 100 01/29/23 19:26 91 H 100 01/29/23 19:24 96 H 174/104 H 01/29/23 19:21 89 100 01/29/23 19:16 92 H 100 01/29/23 19:11 89 100 01/29/23 19:08 89 168/94 H 01/29/23 19:06 97 H 100 01/29/23 19:01 90 99 01/29/23 18:56 87 99 01/29/23 18:54 82 176/95 H 01/29/23 18:51 85 100 01/29/23 18:46 84 100 01/29/23 18:41 98 H 96 01/29/23 18:38 37.0 C 83 20 165/92 H 01/29/23 18:36 98 H 100 01/29/23 18:31 88 100 01/29/23 18:26 86 100 01/29/23 18:24 88 175/94 H 01/29/23 18:21 88 100 01/29/23 18:16 78 99 01/29/23 18:11 79 100 01/29/23 18:08 77 151/80 H 01/29/23 18:06 80 99 01/29/23 18:01 73 100 01/29/23 17:56 77 100 01/29/23 17:54 70 161/76 H 01/29/23 17:51 72 100 01/29/23 17:46 74 100 01/29/23 17:41 88 100 01/29/23 17:39 80 143/83 H 01/29/23 17:36 77 100 01/29/23 17:31 78 100 01/29/23 17:26 82 100 01/29/23 17:25 76 158/79 H 01/29/23 17:21 86 100 01/29/23 17:16 73 100 01/29/23 17:11 76 100 01/29/23 17:09 77 168/97 H 01/29/23 17:06 78 100 01/29/23 17:01 80 20 100 01/29/23 16:56 83 100 01/29/23 16:54 80 158/86 H 01/29/23 16:51 79 100 01/29/23 16:46 76 100 01/29/23 16:41 86 99 01/29/23 16:40 83 143/72 H 01/29/23 16:36 91 H 100 01/29/23 16:31 80 20 99 01/29/23 16:26 77 98 01/29/23 16:24 77 138/84 01/29/23 16:21 75 99 01/29/23 16:16 78 100 01/29/23 16:11 73 100 01/29/23 16:09 74 150/83 H 01/29/23 16:06 78 100 01/29/23 16:01 78 20 100 01/29/23 15:56 81 100 01/29/23 15:55 78 143/92 H 01/29/23 15:51 75 100 01/29/23 15:46 76 100 01/29/23 15:41 77 100 01/29/23 15:38 74 144/81 H 01/29/23 15:36 79 100 01/29/23 15:31 77 20 100 01/29/23 15:26 79 100 01/29/23 15:25 81 145/86 H 01/29/23 15:21 75 100 01/29/23 15:16 73 100 01/29/23 15:11 73 100 01/29/23 15:09 75 147/93 H 01/29/23 15:06 81 100 01/29/23 15:01 92 H 100 01/29/23 14:56 83 100 01/29/23 14:55 83 169/80 H 01/29/23 14:51 76 100 01/29/23 14:46 67 100 01/29/23 14:41 69 100 01/29/23 14:39 70 151/77 H 01/29/23 14:36 67 100 01/29/23 14:30 20 01/29/23 14:30 20 01/29/23 14:31 74 100 01/29/23 14:26 73 100 01/29/23 14:25 69 151/82 H 01/29/23 14:21 77 100 01/29/23 14:16 78 100 01/29/23 14:11 75 100 01/29/23 14:00 20 01/29/23 14:00 20 01/29/23 14:10 80 143/81 H 06/07/23 14:06 79 100 01/29/23 14:01 84 99 01/29/23 13:56 94 H 100 01/29/23 13:54 94 H 134/77 01/29/23 13:51 124 H 100 01/29/23 13:46 123 H 100 01/29/23 13:41 119 H 100 01/29/23 13:38 88 121/73 01/29/23 13:36 88 100 01/29/23 13:31 95 H 20 100 01/29/23 13:30 101 H 125/83 01/29/23 13:26 113 H 100 01/29/23 13:23 99 H 164/98 H 01/29/23 13:22 93 H 152/87 H 01/29/23 13:21 89 100 01/29/23 13:19 87 155/89 H 01/29/23 13:18 86 148/89 H 01/29/23 13:16 78 100 01/29/23 13:15 74 20 163/96 H 01/29/23 13:13 81 162/102 H 01/29/23 13:11 85 152/95 H 100 01/29/23 13:09 84 170/85 H 01/29/23 13:07 80 163/103 H 01/29/23 13:06 100 01/29/23 13:06 82 01/29/23 13:06 80 162/97 H 01/29/23 13:03 86 176/98 H 01/29/23 13:01 87 100 01/29/23 13:00 86 168/97 H 01/29/23 12:57 85 189/103 H 01/29/23 12:56 93 H 99 01/29/23 12:51 87 100 01/29/23 12:49 87 170/102 H 01/29/23 12:46 90 100 01/29/23 12:41 85 100 01/29/23 12:36 82 100 01/29/23 12:34 90 169/93 H 01/29/23 12:31 80 100 01/29/23 12:26 85 100 01/29/23 12:21 88 100 01/29/23 12:20 81 175/79 H 01/29/23 12:16 89 100 01/29/23 12:11 83 100 01/29/23 12:06 88 100 01/29/23 12:05 86 166/81 H 01/29/23 12:01 87 100 01/29/23 11:56 84 100 01/29/23 11:51 81 100 01/29/23 11:49 83 154/82 H 01/29/23 11:46 88 99 01/29/23 11:41 80 99 01/29/23 11:36 85 100 01/29/23 11:34 84 140/74 01/29/23 11:31 86 99 01/29/23 11:26 80 100 01/29/23 11:21 81 100 01/29/23 11:19 86 143/75 H Coding Level of Care Code None Diagnoses Preeclampsia O14.90 Supervision of elderly primigravida O09.519
[2023-01-30] MEDS ORDERED: miSOPROStoL 200 MCG TAB ONE (02:35)
[2023-01-30] MEDS ORDERED: CARBOPROST TROMETHAMINE 250 MCG/ML AMPUL ONE (02:35)
[2023-01-30] MEDS ORDERED: CARBOPROST TROMETHAMINE 250 MCG/ML AMPUL IM ONE (02:42)
[2023-01-30] MEDS ORDERED: OXYTOCIN 30 UNITS/500 ML BAG IV PRN (02:42)
[2023-01-30] MEDS ORDERED: oxyCODONE/ACETAMINOPHEN 5mg/325mg TAB PO PRN (02:42)
[2023-01-30] MEDS ORDERED: miSOPROStoL 200 MCG TAB PR ONE (02:42)
[2023-01-30] MEDS ORDERED: BENZOCAINE 20% AER SPR 82.5 GM CAN EXT PRN (02:42)
[2023-01-30] MEDS ORDERED: HYDROCORTISONE ACETATE 25 MG SUPP PR PRN (02:42)
[2023-01-30] MEDS ORDERED: DIPHTHERIA/TETANUS/PERTUSSIS Vaccine (Tdap, Age 7+yrs) 0.5mL SYR/VL IM ONE (02:42)
[2023-01-30] MEDS ORDERED: bisacodyL 10 MG SUPP PR PRN (02:42)
--- NOTE | 2023-01-30 02:45 | Delivery Summary ---
Vaginal Delivery Summary Date of Service January 30, 2023 Vaginal Delivery Summary and 2nd Degree LAC (with left sulcal) Pre-operative Diagnosis: at 40 5/7 unfavorable cervix ama pet with severe symptoms Post-operative Diagnosis: same Procedure: welch bulb for cervical ripening pitocin induction epidural iupc second degree laceration with left sulcal laceration EBL: 450cc Anesthesia: epidural Procedure: The patient presented to labor and delivery for welch bulb for induction for postdates. she was found to have elevated blood pressures and was kept for induction. She had no s/s of pet. Welch was placed and pitocin initiated. The bulb was removed and 3-4cm. At that point, blood pressures were in the severe range and Mag prophylaxis was started and a welch placed into the bladder. An epidural was placed and arom for clear fluid. Subsequently she had IUPC placed as had not made cervical change. She was found to have adequate contractions. She then progressed to c/c/+2 station. Welch removed. The patient pushed for 20 minutes to deliver a viable female in jameel position. The nose and mouth were bulb suctioned on the perineum and the rest of the was then delivered without difficulty. The baby was vigorous. The nose and mouth were again bulb suctioned and the infant was placed in the maternal abdomen for drying and attention. Cord was clamped and cut at about 30 secs of life. Cord blood and segment obtained. Placenta delivered spontaneous, intact with a three vessel cord. Cervix and rectum were intact. A second degree perineal laceration and left sulcal tear were repaired in the normal standard fashion. Hemostasis obtained with dilute pitocin and fundal massage. Apgars were 7/8 . Mother and baby doing well at the end of the delivery. She will remain on Mag prophylaxis. [facility] [place]ag[place] Delivery Charge Delivery Type Details: and 2nd Degree LAC (with left sulcal)
[2023-01-30 02:57] LABS: Base Excess Cord Arterial Bld -8.1 mEq/L (-9-1.8); CO2 Cord Arterial Blood 50 mmHg (39.1-73.5); HCO3 Cord Arterial Blood 20 mmol/L (19.7-28.5); PO2 Cord Arterial Blood 17 mmHg (4.1-31.7); pH Cord Arterial Blood 7.21 (7.1-7.38)
[2023-01-30 02:58] LABS: Base Excess Cord Venous Blood -7.5 mEq/L (-7.7-1.9); Cord Venous Blood HCO3 19 mmol/L (18.4-26.8); Cord Venous Blood PCO2 43 mmHg (30.4-57.2); Cord Venous Blood PO2 25 mmHg (14.1-43.3); Cord Venous Blood pH 7.26 (7.20-7.44); O2 Saturation Cord Venous Bld < 60.0 % (<68)
[2023-01-30 03:00] LABS: Oxygen Sat Cord Arterial Blood < 60.0 % (<60)
[2023-01-30] MEDS: NICOTINE 14 MG/24 HR PATCH TD SCH ×2 (03:19→14:52)
[2023-01-30] MEDS: ACETAMINOPHEN 325 MG TAB PO PRN ×4 (03:28→22:25)
[2023-01-30] MEDS: IBUPROFEN 600 MG TAB PO PRN ×3 (03:28→19:37)
[2023-01-30] MEDS: MAGNESIUM SULFATE / WTR 40 GM/1,000 ML BAG IV SCH ×2 (03:46→23:52)
[2023-01-30] MEDS ORDERED: LABETALOL HCL IV 5 MG/ML 20ML IV ONE (04:28)
[2023-01-30] MEDS ORDERED: LABETALOL HCL IV 5 MG/ML 20ML IV STA ×6 (04:28→12:34)
--- NOTE | 2023-01-30 04:55 | Anesthesia Procedure Note ---
Date of Service January 30, 2023 Anesthesia Post Epidural Note Vital Signs Vital Signs: Temp Pulse Resp BP Pulse Ox O2 Del Method 36.7 C 90 18 167/90 H 100 Room Air 01/30/23 04:26 01/30/23 04:53 01/30/23 04:26 01/30/23 04:53 01/30/23 03:44 01/29/23 19:20 Pain Intensity Bilateral Abdomen: Pain Intensity: 5 Notes Mental Status: alert / awake / arousable and participated in evaluation Nausea / Vomiting: adequately controlled Pain: adequately controlled Airway Patency, RR, SpO2: stable & adequate BP & HR: stable & adequate Hydration State: stable & adequate Neuraxial Anesthesia: was administered and sensory block is resolving Anesthetic Complications: no major complications apparent and Pt Satisfied with anesthetic care Epidural: Removed without complications and With tip intact
[2023-01-30] MEDS: LACTATED RINGER'S 1,000 ML IV PRN ×2 (07:37→18:19)
[2023-01-30] MEDS: DOCUSATE SODIUM 100 MG CAP PO SCH ×3 (07:38→22:25)
[2023-01-30] MEDS: PRENATAL VITAMIN 1 TAB PO SCH (07:38)
--- NOTE | 2023-01-30 07:54 | Obstetrical Progress Note ---
Date of Service January 30, 2023 Assessment & Plan (1) Preeclampsia: Plan Blood pressures are elevated and labile. Labs pending. no s/s of pet or concerning sx at this point. Mag sulfate prophylaxis continues. Good uop. Basically pressures are elevated with any type of stimulation. Have treated with 10mg of labetolol, 20mg and now 40 mg. Will continue to monitor closely. will likely add long acting nifedipine once bps more reasonable. Subjective Patient is lying comfortably in bed. She has no complaints currently and denies significant pain. she notes no s/s of pet--denies ramirez/vision changes/n/v/ruq pain. Physical Exam Constitutional WD/WN, vitals as above Gastrointestinal (Abdomen) soft, nt, ff/at 1 above u Results & Data Vital Signs (Past 12 Hours) Vital Signs Temp Pulse Resp BP Pulse Ox 01/30/23 05:30 18 01/30/23 04:56 18 01/30/23 04:26 36.7 C 18 01/30/23 04:26 18 01/30/23 03:41 36.9 C 20 01/30/23 02:30 18 01/30/23 07:48 84 171/95 H 01/30/23 07:44 80 100 01/30/23 07:43 82 175/101 H 01/30/23 07:39 82 100 01/30/23 07:38 84 166/93 H 01/30/23 07:36 82 154/80 H 01/30/23 07:34 99 01/30/23 07:34 82 01/30/23 07:34 81 159/74 H 01/30/23 07:32 83 160/70 H 01/30/23 07:30 78 170/90 H 01/30/23 07:29 79 100 01/30/23 07:26 81 157/93 H 01/30/23 07:24 86 152/86 H 100 01/30/23 07:19 81 100 01/30/23 07:18 81 183/95 H 01/30/23 07:14 86 100 01/30/23 07:13 83 181/94 H 01/30/23 07:09 81 99 01/30/23 07:08 85 178/92 H 01/30/23 07:04 88 100 01/30/23 07:03 84 182/111 H 01/30/23 06:59 83 100 01/30/23 06:58 83 183/100 H 01/30/23 06:54 89 100 01/30/23 06:48 94 H 165/111 H 01/30/23 06:40 85 100 01/30/23 06:35 83 99 01/30/23 06:30 100 01/30/23 06:30 89 01/30/23 06:30 170/99 H 01/30/23 06:30 88 169/105 H 01/30/23 06:25 84 99 01/30/23 06:20 85 99 01/30/23 06:15 84 99 01/30/23 06:10 84 99 01/30/23 06:05 84 99 01/30/23 06:00 99 01/30/23 06:00 84 01/30/23 06:00 92 H 178/110 H 01/30/23 05:55 86 99 01/30/23 05:50 83 99 01/30/23 05:45 84 99 01/30/23 05:40 86 99 01/30/23 05:35 85 100 01/30/23 05:30 90 100 01/30/23 05:25 90 99 01/30/23 05:22 89 168/90 H 01/30/23 05:20 86 99 01/30/23 05:15 85 99 01/30/23 05:12 86 179/95 H 01/30/23 05:10 86 100 01/30/23 05:05 88 100 01/30/23 05:00 106 H 96 01/30/23 04:53 90 167/90 H 01/30/23 04:48 88 165/88 H 01/30/23 04:43 83 172/91 H 01/30/23 04:35 85 159/88 H 01/30/23 04:25 87 170/86 H 01/30/23 04:20 88 183/90 H 01/30/23 04:10 99 H 205/125 H 01/30/23 03:44 92 H 100 01/30/23 03:39 96 H 99 01/30/23 03:35 96 H 165/95 H 01/30/23 03:34 94 H 100 01/30/23 03:29 96 H 100 01/30/23 03:24 98 01/30/23 03:24 101 H 01/30/23 03:24 100 H 164/78 H 01/30/23 03:20 96 H 173/83 H 01/30/23 03:19 101 H 99 01/30/23 03:14 97 H 98 01/30/23 03:09 97 H 98 01/30/23 03:07 95 H 159/85 H 01/30/23 03:06 100 H 180/119 H 01/30/23 03:04 96 H 99 01/30/23 02:59 98 H 100 01/30/23 02:58 95 H 186/114 H 01/30/23 02:54 95 H 99 01/30/23 02:49 102 H 99 01/30/23 02:44 104 H 98 01/30/23 02:41 115 H 168/102 H 01/30/23 02:39 112 H 96 01/30/23 02:34 118 H 96 01/30/23 02:29 112 H 97 01/30/23 02:24 107 H 95 01/30/23 02:19 99 H 99 01/30/23 02:14 97 01/30/23 02:14 97 H 01/30/23 02:14 94 H 93 01/30/23 02:09 108 H 98 01/30/23 02:04 149 H 96 01/30/23 01:59 105 H 94 01/30/23 01:54 108 H 97 01/30/23 01:53 103 H 88 L 01/30/23 01:49 96 H 98 01/30/23 01:44 106 H 98 01/30/23 01:39 115 H 100 01/30/23 01:40 112 H 156/82 H 01/30/23 01:34 100 01/30/23 01:34 107 H 01/30/23 01:34 103 H 87 L 01/30/23 01:29 105 H 98 01/30/23 01:24 102 H 98 01/30/23 01:19 96 H 99 01/30/23 01:14 96 H 100 01/30/23 01:09 99 01/30/23 01:09 96 H 01/30/23 01:09 94 H 154/87 H 01/30/23 01:00 20 01/30/23 01:00 36.5 C 20 01/30/23 01:04 104 H 100 01/30/23 00:59 92 H 98 01/30/23 00:55 93 H 149/85 H 01/30/23 00:54 95 H 100 01/30/23 00:49 88 99 01/30/23 00:44 100 H 97 01/30/23 00:39 98 H 100 01/30/23 00:38 94 H 150/88 H 01/30/23 00:34 90 98 01/30/23 00:29 94 H 98 01/30/23 00:24 91 H 154/84 H 99 01/30/23 00:19 88 99 01/30/23 00:14 86 99 01/30/23 00:09 87 100 01/30/23 00:08 86 159/89 H 01/30/23 00:04 90 99 01/29/23 23:59 88 98 01/29/23 23:54 88 99 01/29/23 23:55 87 145/84 H 01/29/23 23:44 18 01/29/23 23:49 94 H 98 01/29/23 23:44 37.0 C 90 18 99 01/29/23 23:39 93 H 99 01/29/23 23:38 90 163/79 H 01/29/23 23:34 90 97 01/29/23 23:35 96 H 162/80 H 01/29/23 23:31 92 H 162/92 H 01/29/23 23:29 99 H 157/88 H 98 01/29/23 23:25 94 H 166/100 H 01/29/23 23:24 98 H 99 01/29/23 23:19 98 H 99 01/29/23 23:14 101 H 97 01/29/23 23:09 103 H 98 01/29/23 23:04 110 H 100 01/29/23 22:59 120 H 100 01/29/23 22:55 96 H 180/102 H 01/29/23 22:54 99 H 100 01/29/23 22:49 92 H 98 01/29/23 22:44 94 H 100 01/29/23 22:39 101 H 100 01/29/23 22:38 100 H 147/101 H 01/29/23 22:34 93 H 99 01/29/23 22:29 97 H 99 01/29/23 22:24 95 H 99 01/29/23 22:16 98 H 99 01/29/23 22:11 94 H 97 01/29/23 22:08 99 H 157/83 H 01/29/23 22:06 98 H 97 01/29/23 22:03 100 H 167/88 H 01/29/23 22:01 98 H 97 01/29/23 21:59 97 H 151/86 H 01/29/23 21:56 95 01/29/23 21:56 101 H 01/29/23 21:56 99 H 93 01/29/23 21:55 100 H 178/103 H 01/29/23 21:51 101 H 98 01/29/23 21:52 100 H 168/93 H 01/29/23 21:49 100 H 169/91 H 01/29/23 21:46 99 H 96 01/29/23 21:47 100 H 176/93 H 01/29/23 21:43 100 H 160/95 H 01/29/23 21:41 98 H 98 01/29/23 21:40 104 H 141/105 H 01/29/23 21:36 109 H 99 01/29/23 21:31 110 H 99 01/29/23 21:26 104 H 99 01/29/23 21:23 111 H 171/83 H 01/29/23 21:21 128 H 99 01/29/23 21:16 97 H 100 01/29/23 21:11 88 99 01/29/23 21:09 36.9 C 88 18 156/80 H 01/29/23 21:06 87 100 01/29/23 21:01 85 100 01/29/23 20:56 87 100 01/29/23 20:53 89 173/99 H 01/29/23 20:51 89 100 01/29/23 20:46 86 100 01/29/23 20:41 93 H 100 01/29/23 20:39 89 153/97 H 01/29/23 20:36 88 100 01/29/23 20:31 93 H 98 01/29/23 20:26 93 H 99 01/29/23 20:21 106 H 100 01/29/23 20:16 98 H 100 01/29/23 20:11 124 H 100 01/29/23 20:08 90 138/68 01/29/23 20:06 86 100 01/29/23 20:01 83 100 01/29/23 19:56 85 100 01/29/23 19:54 84 163/77 H 01/29/23 19:51 85 100
[2023-01-30 08:46] LABS: Bilirubin,Total 0.5 mg/dl (0.2-1.0)
[2023-01-30 08:52] LABS: Albumin Globulin Ratio 1.1 (0.9-2); BUN Creatinine Ratio 6.7 (10-20); Creatinine Clr Calc Pharmacy 90.6 ml/min; Globulin 2.7 gm/dl (2.5-4.0); Total Protein 5.7 gm/dl (6.0-8.3)
[2023-01-30] MEDS ORDERED: NIFEdipine EXTENDED REL 30 MG TABCR PO SCH (09:00)
[2023-01-30 09:04] LABS: Hematocrit (blood only) 23.9 % (37.0-47.0); Mean Corpuscular Hemoglobin 24.6 pg (25.0-34.0); Mean Corpuscular Hgb Conc 33.5 g/dL (32.0-36.0); Mean Corpuscular Volume 73.5 fL (80.0-100.0); Mean Platelet Volume 10.5 fL (9.4-12.4); Platelet Count 216 K/uL (130-400); RDW Coefficient of Variation 14.4 % (11.5-14.5); RDW Standard Deviation 38.5 fL (36.4-46.3); Red Blood Count 3.25 M/uL (4.20-5.40); White Blood Count 24.41 K/ul (4.8-10.8)
[2023-01-30] MEDS ORDERED: LIDOCAINE 2% JELLY 5 ML TUBE EXT ONE (09:07)
[2023-01-30] MEDS ORDERED: MAG SULFATE 6GM BOLUS FROM BAG IV ONE (09:10)
[2023-01-30] MEDS: ONDANSETRON INJ 2 MG/ML 2 ML VIAL IV PRN (09:17)
[2023-01-30 09:29] LABS: Potassium 3.3 mmol/L (3.5-5.1)
[2023-01-30 09:34] LABS: Magnesium 6.8 mg/dl (1.7-2.4)
[2023-01-30 09:35] LABS: Est GFR (African American) 97.3 ml/min
[2023-01-30] MEDS ORDERED: NIFEdipine EXTENDED REL 30 MG TABCR PO STA (11:53)
--- NOTE | 2023-01-30 12:12 | Obstetrical Progress Note ---
Date of Service January 30, 2023 Assessment & Plan Admission and Anticipated Discharge Date Admission Date: January 28, 2023 Subjective Presented to bedside secondary to syncopal episode with seizure-like activities while standing to go to bathroom. Per nurse report patient was caught by a family member and had convulsive type activity consistent with possible seizure. Patient was replaced back in bed and convulsive activity stopped. Dr. Smith was nearby and kindly presented to assist and ordered a 6 mg magnesium bolus. I presented shortly thereafter and bolus was continued. Patient appeared lethargic and potentially postictal but was and conversing. Blood pressures were labile between mild range and severe range. Patient had been given an 80 mg dose of labetalol just prior to the episode. She had also been previously started on Procardia XL 30 mg. Patient had no additional seizure activity and after magnesium this was complete patient was transitioned to 2 mg of magnesium per hour. A magnesium level was drawn. Close cardiac and vitals monitoring was notable for normal respiratory rate and O2 saturation level throughout process. Normal cardiac activity noted on monitoring. Patient had preeclampsia labs collected just prior to this episode which were normal. Close monitoring showed gradual improvement in cognition and awareness. Follow-up mag level was noted at 9.2 and magnesium was decreased to 1 mg/h with plan to repeat magnesium level in 1 hour and will transition back up to 2 mg/h if within therapeutic range. Results & Data Vital Signs (Past 12 Hours) Vital Signs Temp Pulse Resp BP Pulse Ox 01/30/23 11:00 36.6 C 20 01/30/23 10:00 18 01/30/23 10:00 18 01/30/23 08:00 18 01/30/23 08:50 20 01/30/23 08:15 16 01/30/23 07:15 18 01/30/23 05:30 18 01/30/23 04:56 18 01/30/23 04:26 36.7 C 18 01/30/23 04:26 18 01/30/23 03:41 36.9 C 20 01/30/23 02:30 18 01/30/23 12:00 77 100 01/30/23 11:55 82 100 01/30/23 11:50 79 100 01/30/23 11:49 162/105 H 01/30/23 11:45 79 100 01/30/23 11:40 79 100 01/30/23 11:35 81 100 01/30/23 11:34 78 168/90 H 01/30/23 11:30 82 100 01/30/23 11:25 80 100 01/30/23 11:20 79 100 01/30/23 11:19 78 169/94 H 01/30/23 11:15 83 100 01/30/23 11:10 84 100 01/30/23 11:05 86 100 01/30/23 11:04 81 151/87 H 01/30/23 11:00 82 100 01/30/23 10:55 78 100 01/30/23 10:50 77 100 01/30/23 10:48 36.6 C 82 20 158/91 H 01/30/23 10:45 78 100 01/30/23 10:43 78 160/94 H 01/30/23 10:40 77 100 01/30/23 10:35 75 100 01/30/23 10:33 77 147/94 H 01/30/23 10:30 75 100 01/30/23 10:28 74 158/92 H 01/30/23 10:25 74 100 01/30/23 10:23 74 150/89 H 01/30/23 10:20 74 100 01/30/23 10:18 74 146/86 H 01/30/23 10:15 74 100 01/30/23 10:13 75 148/85 H 01/30/23 10:10 74 100 01/30/23 10:08 75 145/86 H 01/30/23 10:05 75 100 01/30/23 10:03 75 145/86 H 01/30/23 10:00 77 100 01/30/23 09:58 77 151/92 H 01/30/23 09:55 84 100 01/30/23 09:53 74 142/88 H 01/30/23 09:50 74 100 01/30/23 09:48 75 144/87 H 01/30/23 09:45 74 100 01/30/23 09:43 77 135/84 01/30/23 09:40 78 100 01/30/23 09:38 76 132/78 01/30/23 09:35 76 100 01/30/23 09:33 77 126/73 01/30/23 09:30 78 100 01/30/23 09:28 78 140/82 06/08/23 09:25 80 100 01/30/23 09:20 86 100 01/30/23 09:18 90 149/80 H 01/30/23 09:15 93 H 149/92 H 100 01/30/23 09:10 93 H 100 01/30/23 09:09 88 164/77 H 01/30/23 09:05 89 100 01/30/23 09:03 81 186/85 H 01/30/23 09:01 104 H 135/89 88 L 01/30/23 09:00 87 98 01/30/23 08:53 88 149/88 H 100 01/30/23 08:48 83 100 01/30/23 08:47 83 167/103 H 01/30/23 08:43 86 100 01/30/23 08:38 83 187/99 H 98 01/30/23 08:34 94 01/30/23 08:34 84 01/30/23 08:33 81 100 01/30/23 08:34 83 175/96 H 01/30/23 08:28 84 171/83 H 98 01/30/23 08:23 82 168/91 H 98 01/30/23 08:21 88 171/91 H 01/30/23 08:18 88 99 01/30/23 08:13 36.5 C 133 H 18 138/94 99 01/30/23 08:08 84 156/94 H 98 01/30/23 08:03 84 100 01/30/23 08:04 84 156/76 H 01/30/23 08:01 82 188/89 H 01/30/23 07:58 88 100 01/30/23 07:49 84 100 01/30/23 07:48 84 171/95 H 01/30/23 07:44 80 100 01/30/23 07:43 82 175/101 H 01/30/23 07:39 82 100 01/30/23 07:38 84 166/93 H 01/30/23 07:36 82 154/80 H 01/30/23 07:34 99 01/30/23 07:34 82 01/30/23 07:34 81 159/74 H 01/30/23 07:32 83 160/70 H 01/30/23 07:30 78 170/90 H 01/30/23 07:29 79 100 01/30/23 07:26 81 157/93 H 01/30/23 07:24 86 152/86 H 100 01/30/23 07:19 81 100 01/30/23 07:18 81 183/95 H 01/30/23 07:14 86 100 01/30/23 07:13 83 181/94 H 01/30/23 07:09 81 99 01/30/23 07:08 85 178/92 H 01/30/23 07:04 88 100 01/30/23 07:03 84 182/111 H 01/30/23 06:59 83 100 01/30/23 06:58 83 183/100 H 01/30/23 06:54 89 100 01/30/23 06:48 94 H 165/111 H 01/30/23 06:40 85 100 01/30/23 06:35 83 99 01/30/23 06:30 100 01/30/23 06:30 89 01/30/23 06:30 170/99 H 01/30/23 06:30 88 169/105 H 01/30/23 06:25 84 99 01/30/23 06:20 85 99 01/30/23 06:15 84 99 01/30/23 06:10 84 99 01/30/23 06:05 84 99 01/30/23 06:00 99 01/30/23 06:00 84 01/30/23 06:00 92 H 178/110 H 01/30/23 05:55 86 99 01/30/23 05:50 83 99 01/30/23 05:45 84 99 01/30/23 05:40 86 99 01/30/23 05:35 85 100 01/30/23 05:30 90 100 01/30/23 05:25 90 99 01/30/23 05:22 89 168/90 H 01/30/23 05:20 86 99 01/30/23 05:15 85 99 01/30/23 05:12 86 179/95 H 01/30/23 05:10 86 100 01/30/23 05:05 88 100 01/30/23 05:00 106 H 96 01/30/23 04:53 90 167/90 H 01/30/23 04:48 88 165/88 H 01/30/23 04:43 83 172/91 H 01/30/23 04:35 85 159/88 H 01/30/23 04:25 87 170/86 H 01/30/23 04:20 88 183/90 H 01/30/23 04:10 99 H 205/125 H 01/30/23 03:44 92 H 100 01/30/23 03:39 96 H 99 01/30/23 03:35 96 H 165/95 H 01/30/23 03:34 94 H 100 01/30/23 03:29 96 H 100 01/30/23 03:24 98 01/30/23 03:24 101 H 01/30/23 03:24 100 H 164/78 H 01/30/23 03:20 96 H 173/83 H 01/30/23 03:19 101 H 99 01/30/23 03:14 97 H 98 01/30/23 03:09 97 H 98 01/30/23 03:07 95 H 159/85 H 01/30/23 03:06 100 H 180/119 H 01/30/23 03:04 96 H 99 01/30/23 02:59 98 H 100 01/30/23 02:58 95 H 186/114 H 01/30/23 02:54 95 H 99 01/30/23 02:49 102 H 99 01/30/23 02:44 104 H 98 01/30/23 02:41 115 H 168/102 H 01/30/23 02:39 112 H 96 01/30/23 02:34 118 H 96 01/30/23 02:29 112 H 97 01/30/23 02:24 107 H 95 01/30/23 02:19 99 H 99 01/30/23 02:14 97 01/30/23 02:14 97 H 01/30/23 02:14 94 H 93 01/30/23 02:09 108 H 98 01/30/23 02:04 149 H 96 01/30/23 01:59 105 H 94 01/30/23 01:54 108 H 97 01/30/23 01:53 103 H 88 L 01/30/23 01:49 96 H 98 01/30/23 01:44 106 H 98 01/30/23 01:39 115 H 100 01/30/23 01:40 112 H 156/82 H 01/30/23 01:34 100 01/30/23 01:34 107 H 01/30/23 01:34 103 H 87 L 01/30/23 01:29 105 H 98 01/30/23 01:24 102 H 98 01/30/23 01:19 96 H 99 01/30/23 01:14 96 H 100 01/30/23 01:09 99 01/30/23 01:09 96 H 01/30/23 01:09 94 H 154/87 H 01/30/23 01:00 20 01/30/23 01:00 36.5 C 20 01/30/23 01:04 104 H 100 01/30/23 00:59 92 H 98 01/30/23 00:55 93 H 149/85 H 01/30/23 00:54 95 H 100 01/30/23 00:49 88 99 01/30/23 00:44 100 H 97 01/30/23 00:39 98 H 100 01/30/23 00:38 94 H 150/88 H 01/30/23 00:34 90 98 01/30/23 00:29 94 H 98 01/30/23 00:24 91 H 154/84 H 99 01/30/23 00:19 88 99 01/30/23 00:14 86 99 01/30/23 00:09 87 100 01/30/23 00:08 86 159/89 H 01/30/23 00:04 90 99 PG Care Time/CCT Total # of Minutes Spent Total Time Spent with Patient: Total time spent is greater than 50% in coordination of care (as documented) at patient's floor/unit and/or counseling patient: Coding Level of Care Code None Diagnoses
[2023-01-30] MEDS: SERTRALINE HCL 50 MG TABLET PO SCH (14:51)
--- NOTE | 2023-01-30 17:39 | Obstetrical Progress Note ---
Date of Service January 30, 2023 Assessment & Plan Admission and Anticipated Discharge Date Admission Date: January 28, 2023 Subjective Mag level within therapeutic range at 6.9. Mag dosing returned to 2 mg/h per p rotocol. Blood pressures have been in normal range for the past 2 to 3 hours without need for additional acute antihypertensive management. Patient diuresing well with approximately 1500 mL of urine output over the past 2 to 3 hours. Continue magnesium per protocol. Results & Data Vital Signs (Past 12 Hours) Vital Signs Temp Pulse Resp BP Pulse Ox 01/30/23 17:00 18 01/30/23 16:00 16 01/30/23 15:00 36.7 C 18 01/30/23 15:00 18 01/30/23 14:00 16 01/30/23 13:00 20 01/30/23 12:00 20 01/30/23 11:00 36.6 C 20 01/30/23 10:00 18 01/30/23 10:00 18 01/30/23 08:00 18 01/30/23 08:50 20 01/30/23 08:15 16 01/30/23 07:15 18 01/30/23 17:30 92 H 100 01/30/23 17:26 90 92 01/30/23 17:25 93 H 100 01/30/23 17:22 88 132/78 01/30/23 17:20 92 H 100 01/30/23 17:15 91 H 99 01/30/23 17:10 89 98 01/30/23 17:07 85 138/70 01/30/23 17:05 80 98 01/30/23 17:00 83 99 01/30/23 16:55 85 98 01/30/23 16:52 126/65 01/30/23 16:50 86 98 01/30/23 16:45 87 97 01/30/23 16:40 86 98 01/30/23 16:37 84 119/67 01/30/23 16:35 89 98 01/30/23 16:30 85 98 01/30/23 16:25 86 99 01/30/23 16:21 83 133/84 01/30/23 16:20 85 99 01/30/23 16:15 85 99 01/30/23 16:10 85 99 01/30/23 16:07 92 H 135/81 01/30/23 16:05 88 99 01/30/23 16:00 91 H 99 01/30/23 15:55 82 98 01/30/23 15:51 86 140/80 01/30/23 15:50 91 H 98 01/30/23 15:45 92 H 99 01/30/23 15:40 89 99 01/30/23 15:37 86 140/81 01/30/23 15:35 87 98 01/30/23 15:30 87 99 01/30/23 15:25 88 97 01/30/23 15:20 91 H 97 01/30/23 15:15 84 99 01/30/23 15:10 85 99 01/30/23 15:07 83 142/91 H 01/30/23 15:05 90 100 01/30/23 15:00 90 100 01/30/23 14:55 87 99 01/30/23 14:50 82 99 01/30/23 14:45 85 100 01/30/23 14:40 90 98 01/30/23 14:37 91 H 148/75 H 01/30/23 14:35 89 99 01/30/23 14:30 79 98 01/30/23 14:25 78 99 01/30/23 14:22 77 154/84 H 01/30/23 14:20 79 98 01/30/23 14:15 81 99 01/30/23 14:10 83 99 01/30/23 14:05 81 99 01/30/23 14:03 84 150/87 H 01/30/23 14:00 83 99 01/30/23 13:58 80 162/94 H 01/30/23 13:55 80 99 01/30/23 13:52 78 151/90 H 01/30/23 13:50 82 98 01/30/23 13:47 80 153/94 H 01/30/23 13:45 81 99 01/30/23 13:42 80 145/90 H 01/30/23 13:40 80 98 01/30/23 13:38 82 143/84 H 01/30/23 13:35 83 99 01/30/23 13:33 83 146/84 H 01/30/23 13:30 80 98 01/30/23 13:28 85 154/92 H 01/30/23 13:25 81 97 0608/23 13:23 79 133/91 01/30/23 13:20 80 98 01/30/23 13:18 81 140/82 01/30/23 13:15 80 98 01/30/23 13:12 83 142/90 H 01/30/23 13:10 78 98 01/30/23 13:07 81 140/87 01/30/23 13:05 81 99 01/30/23 13:03 77 147/87 H 01/30/23 13:00 77 99 01/30/23 12:58 77 148/85 H 01/30/23 12:55 77 99 01/30/23 12:53 81 135/88 01/30/23 12:50 85 99 01/30/23 12:48 83 121/58 L 01/30/23 12:45 83 100 01/30/23 12:40 81 100 01/30/23 12:35 78 100 01/30/23 12:34 80 168/83 H 01/30/23 12:30 82 100 01/30/23 12:25 77 100 01/30/23 12:20 77 100 01/30/23 12:19 79 169/79 H 01/30/23 12:15 77 100 01/30/23 12:10 79 100 01/30/23 12:05 79 100 01/30/23 12:04 77 190/94 H 01/30/23 12:00 77 100 01/30/23 11:55 82 100 01/30/23 11:50 79 100 01/30/23 11:49 162/105 H 01/30/23 11:45 79 100 01/30/23 11:40 79 100 01/30/23 11:35 81 100 01/30/23 11:34 78 168/90 H 01/30/23 11:30 82 100 01/30/23 11:25 80 100 01/30/23 11:20 79 100 01/30/23 11:19 78 169/94 H 01/30/23 11:15 83 100 01/30/23 11:10 84 100 01/30/23 11:05 86 100 01/30/23 11:04 81 151/87 H 01/30/23 11:00 82 100 01/30/23 10:55 78 100 01/30/23 10:50 77 100 01/30/23 10:48 36.6 C 82 20 158/91 H 01/30/23 10:45 78 100 01/30/23 10:43 78 160/94 H 01/30/23 10:40 77 100 01/30/23 10:35 75 100 01/30/23 10:33 77 147/94 H 01/30/23 10:30 75 100 01/30/23 10:28 74 158/92 H 01/30/23 10:25 74 100 01/30/23 10:23 74 150/89 H 01/30/23 10:20 74 100 01/30/23 10:18 74 146/86 H 01/30/23 10:15 74 100 01/30/23 10:13 75 148/85 H 01/30/23 10:10 74 100 01/30/23 10:08 75 145/86 H 01/30/23 10:05 75 100 01/30/23 10:03 75 145/86 H 01/30/23 10:00 77 100 01/30/23 09:58 77 151/92 H 01/30/23 09:55 84 100 01/30/23 09:53 74 142/88 H 01/30/23 09:50 74 100 01/30/23 09:48 75 144/87 H 01/30/23 09:45 74 100 01/30/23 09:43 77 135/84 01/30/23 09:40 78 100 01/30/23 09:38 76 132/78 01/30/23 09:35 76 100 01/30/23 09:33 77 126/73 01/30/23 09:30 78 100 01/30/23 09:28 78 140/82 01/30/23 09:25 80 100 01/30/23 09:20 86 100 01/30/23 09:18 90 149/80 H 01/30/23 09:15 93 H 149/92 H 100 01/30/23 09:10 93 H 100 01/30/23 09:09 88 164/77 H 01/30/23 09:05 89 100 01/30/23 09:03 81 186/85 H 01/30/23 09:01 104 H 135/89 88 L 01/30/23 09:00 87 98 01/30/23 08:53 88 149/88 H 100 01/30/23 08:48 83 100 01/30/23 08:47 83 167/103 H 01/30/23 08:43 86 100 01/30/23 08:38 83 187/99 H 98 01/30/23 08:34 94 01/30/23 08:34 84 01/30/23 08:33 81 100 01/30/23 08:34 83 175/96 H 01/30/23 08:28 84 171/83 H 98 01/30/23 08:23 82 168/91 H 98 01/30/23 08:21 88 171/91 H 01/30/23 08:18 88 99 01/30/23 08:13 36.5 C 133 H 18 138/94 99 01/30/23 08:08 84 156/94 H 98 01/30/23 08:03 84 100 01/30/23 08:04 84 156/76 H 01/30/23 08:01 82 188/89 H 01/30/23 07:58 88 100 01/30/23 07:49 84 100 01/30/23 07:48 84 171/95 H 01/30/23 07:44 80 100 01/30/23 07:43 82 175/101 H 01/30/23 07:39 82 100 01/30/23 07:38 84 166/93 H 01/30/23 07:36 82 154/80 H 01/30/23 07:34 99 01/30/23 07:34 82 01/30/23 07:34 81 159/74 H 01/30/23 07:32 83 160/70 H 01/30/23 07:30 78 170/90 H 01/30/23 07:29 79 100 01/30/23 07:26 81 157/93 H 01/30/23 07:24 86 152/86 H 100 01/30/23 07:19 81 100 01/30/23 07:18 81 183/95 H 01/30/23 07:14 86 100 01/30/23 07:13 83 181/94 H 01/30/23 07:09 81 99 01/30/23 07:08 85 178/92 H 01/30/23 07:04 88 100 01/30/23 07:03 84 182/111 H 01/30/23 06:59 83 100 01/30/23 06:58 83 183/100 H 01/30/23 06:54 89 100 01/30/23 06:48 94 H 165/111 H 01/30/23 06:40 85 100 01/30/23 06:35 83 99 01/30/23 06:30 100 01/30/23 06:30 89 01/30/23 06:30 170/99 H 01/30/23 06:30 88 169/105 H 01/30/23 06:25 84 99 01/30/23 06:20 85 99 01/30/23 06:15 84 99 01/30/23 06:10 84 99 01/30/23 06:05 84 99 01/30/23 06:00 99 01/30/23 06:00 84 01/30/23 06:00 92 H 178/110 H 01/30/23 05:55 86 99 01/30/23 05:50 83 99 01/30/23 05:45 84 99 01/30/23 05:40 86 99 PG Care Time/CCT Total # of Minutes Spent Total Time Spent with Patient: Total time spent is greater than 50% in coordination of care (as documented) at patient's floor/unit and/or counseling patient: Coding Level of Care Code None Diagnoses
--- NOTE | 2023-01-30 22:46 | Obstetrical Progress Note ---
Date of Service January 30, 2023 Assessment & Plan Admission and Anticipated Discharge Date Admission Date: January 28, 2023 Subjective Nursing reporting patient doing well and denying preeclampsia symptom. Blood p ressures have been in normal range since 3:00 this afternoon. Patient diuresing well with 1000 mL of urine output over the past 90 minutes. Vitals overall stable and within normal limits Results & Data Vital Signs (Past 12 Hours) Vital Signs Temp Pulse Resp BP Pulse Ox 01/30/23 20:30 18 01/30/23 19:30 37.0 C 18 100 01/30/23 19:30 18 01/30/23 18:00 20 01/30/23 17:00 18 01/30/23 16:00 16 01/30/23 15:00 36.7 C 18 01/30/23 15:00 18 01/30/23 14:00 16 01/30/23 13:00 20 01/30/23 12:00 20 01/30/23 11:00 36.6 C 20 01/30/23 22:40 89 100 01/30/23 22:35 87 100 01/30/23 22:30 87 100 01/30/23 22:25 89 100 01/30/23 22:20 87 100 01/30/23 22:15 90 100 01/30/23 22:10 89 100 01/30/23 22:05 91 H 100 01/30/23 22:00 91 H 100 01/30/23 21:55 91 H 99 01/30/23 21:50 91 H 99 01/30/23 21:49 90 118/70 01/30/23 21:45 91 H 100 01/30/23 21:43 96 H 94 01/30/23 21:40 91 H 99 01/30/23 21:35 88 100 01/30/23 21:30 91 H 100 01/30/23 21:25 88 100 01/30/23 21:20 89 100 01/30/23 21:15 88 99 01/30/23 21:10 92 H 98 01/30/23 21:05 91 H 98 01/30/23 21:00 93 H 96 01/30/23 20:55 93 H 97 01/30/23 20:50 93 H 98 01/30/23 20:45 91 H 100 01/30/23 20:40 98 H 97 01/30/23 20:35 87 99 01/30/23 20:30 87 100 01/30/23 20:25 84 100 01/30/23 20:20 83 100 01/30/23 20:15 95 H 100 01/30/23 20:10 89 99 01/30/23 20:05 83 99 01/30/23 20:00 82 99 01/30/23 19:55 93 H 100 01/30/23 19:50 90 100 01/30/23 19:48 84 130/78 01/30/23 19:45 81 97 01/30/23 19:40 85 100 01/30/23 19:35 85 99 01/30/23 19:30 92 H 100 01/30/23 19:25 84 98 01/30/23 19:20 83 98 01/30/23 19:15 85 99 01/30/23 19:10 80 98 01/30/23 19:05 85 99 01/30/23 19:00 90 100 01/30/23 18:55 90 100 01/30/23 18:50 84 98 01/30/23 18:48 87 128/83 01/30/23 18:45 85 100 01/30/23 18:40 86 98 01/30/23 18:35 88 100 01/30/23 18:30 85 99 01/30/23 18:25 86 100 01/30/23 18:20 85 99 01/30/23 18:15 85 99 01/30/23 18:10 86 100 01/30/23 18:05 85 100 01/30/23 18:00 84 99 01/30/23 17:55 83 100 01/30/23 17:50 85 100 01/30/23 17:45 89 100 01/30/23 17:40 85 99 01/30/23 17:36 85 133/77 01/30/23 17:35 86 100 01/30/23 17:30 92 H 100 01/30/23 17:26 90 92 01/30/23 17:25 93 H 100 01/30/23 17:22 88 132/78 01/30/23 17:20 92 H 100 01/30/23 17:15 91 H 99 01/30/23 17:10 89 98 01/30/23 17:07 85 138/70 01/30/23 17:05 80 98 01/30/23 17:00 83 99 01/30/23 16:55 85 98 01/30/23 16:52 126/65 01/30/23 16:50 86 98 01/30/23 16:45 87 97 01/30/23 16:40 86 98 01/30/23 16:37 84 119/67 01/30/23 16:35 89 98 01/30/23 16:30 85 98 01/30/23 16:25 86 99 01/30/23 16:21 83 133/84 01/30/23 16:20 85 99 01/30/23 16:15 85 99 01/30/23 16:10 85 99 01/30/23 16:07 92 H 135/81 01/30/23 16:05 88 99 01/30/23 16:00 91 H 99 01/30/23 15:55 82 98 01/30/23 15:51 86 140/80 01/30/23 15:50 91 H 98 01/30/23 15:45 92 H 99 01/30/23 15:40 89 99 01/30/23 15:37 86 140/81 01/30/23 15:35 87 98 01/30/23 15:30 87 99 01/30/23 15:25 88 97 01/30/23 15:20 91 H 97 01/30/23 15:15 84 99 01/30/23 15:10 85 99 01/30/23 15:07 83 142/91 H 01/30/23 15:05 90 100 01/30/23 15:00 90 100 01/30/23 14:55 87 99 01/30/23 14:50 82 99 01/30/23 14:45 85 100 01/30/23 14:40 90 98 01/30/23 14:37 91 H 148/75 H 01/30/23 14:35 89 99 01/30/23 14:30 79 98 01/30/23 14:25 78 99 01/30/23 14:22 77 154/84 H 01/30/23 14:20 79 98 01/30/23 14:15 81 99 01/30/23 14:10 83 99 01/30/23 14:05 81 99 01/30/23 14:03 84 150/87 H 01/30/23 14:00 83 99 01/30/23 13:58 80 162/94 H 01/30/23 13:55 80 99 01/30/23 13:52 78 151/90 H 01/30/23 13:50 82 98 01/30/23 13:47 80 153/94 H 01/30/23 13:45 81 99 01/30/23 13:42 80 145/90 H 01/30/23 13:40 80 98 01/30/23 13:38 82 143/84 H 01/30/23 13:35 83 99 01/30/23 13:33 83 146/84 H 01/30/23 13:30 80 98 01/30/23 13:28 85 154/92 H 01/30/23 13:25 81 97 01/30/23 13:23 79 133/91 01/30/23 13:20 80 98 01/30/23 13:18 81 140/82 01/30/23 13:15 80 98 01/30/23 13:12 83 142/90 H 01/30/23 13:10 78 98 01/30/23 13:07 81 140/87 01/30/23 13:05 81 99 01/30/23 13:03 77 147/87 H 01/30/23 13:00 77 99 01/30/23 12:58 77 148/85 H 01/30/23 12:55 77 99 01/30/23 12:53 81 135/88 01/30/23 12:50 85 99 01/30/23 12:48 83 121/58 L 01/30/23 12:45 83 100 01/30/23 12:40 81 100 01/30/23 12:35 78 100 01/30/23 12:34 80 168/83 H 01/30/23 12:30 82 100 01/30/23 12:25 77 100 01/30/23 12:20 77 100 01/30/23 12:19 79 169/79 H 01/30/23 12:15 77 100 01/30/23 12:10 79 100 01/30/23 12:05 79 100 01/30/23 12:04 77 190/94 H 01/30/23 12:00 77 100 01/30/23 11:55 82 100 01/30/23 11:50 79 100 01/30/23 11:49 162/105 H 01/30/23 11:45 79 100 01/30/23 11:40 79 100 01/30/23 11:35 81 01/30/23 11:34 78 168/90 H 01/30/23 11:30 82 01/30/23 11:25 80 01/30/23 11:20 79 100 01/30/23 11:19 78 169/94 H 01/30/23 11:15 83 100 01/30/23 11:10 84 100 01/30/23 11:05 86 100 01/30/23 11:04 81 151/87 H 01/30/23 11:00 82 100 01/30/23 10:55 78 100 01/30/23 10:50 77 100 01/30/23 10:48 36.6 C 82 20 158/91 H 01/30/23 10:45 78 100 PG Care Time/CCT Total # of Minutes Spent Total Time Spent with Patient: Total time spent is greater than 50% in coordination of care (as documented) at patient's floor/unit and/or counseling patient: Coding Level of Care Code None Diagnoses
--- NOTE | 2023-01-31 07:49 | Obstetrical Progress Note ---
Date of Service <Juan Faith - Last Filed: 01/31/23 08:22> January 31, 2023 Assessment & Plan <Juan Faith - Last Filed: 01/31/23 08:22> (1) Vaginal delivery: (2) Eclampsia: Plan - Feels well today. Eating well, voiding well, ambulating well. - Pain well controlled with ibuprofen 600mg Q4H PRN - Routine care -- OOB, ambulation, diet progression as tolerated - After discharge will have 6 week follow-up with Dr. Luther. - Patient had possible eclampsia versus syncopal episode yesterday with elevated blood pressure. - We will continue on Procardia 60 mg every morning, has been able to control patient's blood pressure at this time. Day #:: 1 <Andre Dejesus MD - Last Filed: 02/04/23 13:16> (1) Vaginal delivery: (2) Eclampsia: Subjective <Juan Faith - Last Filed: 01/31/23 08:22> Ambulation: ambulating normally Voiding: no voiding problems Passing Gas:: Yes Diet Tolerance:: regular diet Lochia:: Small Feeding Type:: bottle feeding Current Pain Level(1-10): 4 Review of Systems Denies fever, chills, sweats Denies shortness of breath, difficulty breathing, chest pain, palpitations, chest pressure. Denies breast pain. Denies dysuria. Denies headache or changes in vision. Physical Exam <Juan Faith - Last Filed: 01/31/23 08:22> General: Alert, oriented. No acute distress. Cardiac: Regular rate and rhythm, no murmurs/rubs/gallops. Respiratory: Clear to auscultation bilaterally a/p, no wheezes/rales/rhonchi. No increased work of breathing. Symmetrical chest rise. No respiratory distress. Abdomen: Soft, nontender, nondistended. Bowel sounds present. Uterus: Uterine fundus firm, palpable 2 cm below umbilicus. Lower Extremities: No lower extremity edema or swelling. No deep calf pain. Robert's negative bilaterally. Results & Data <Juan NewsomeAlessandra AracelisDO marilyn - Last Filed: 01/31/23 08:22> Vital Signs (Past 12 Hours) Vital Signs Temp Pulse Pulse Resp BP BP Pulse Ox 01/31/23 07:20 36.6 C 80 16 112/76 98 01/31/23 06:32 124/79 01/31/23 04:45 18 01/31/23 04:45 18 01/31/23 02:00 37.0 C 18 01/31/23 02:00 18 01/31/23 00:00 18 01/30/23 23:00 18 01/30/23 22:00 18 01/30/23 20:30 18 01/31/23 04:45 86 97/61 L 01/31/23 01:50 87 98 01/31/23 01:48 83 112/72 01/31/23 01:45 83 98 01/31/23 01:40 85 98 01/31/23 01:35 88 98 01/31/23 01:30 85 99 01/31/23 01:25 82 99 01/31/23 01:20 80 98 01/31/23 01:15 84 99 01/31/23 01:10 86 99 01/31/23 01:05 87 100 01/31/23 01:00 84 99 01/31/23 00:55 84 100 01/31/23 00:50 86 100 01/31/23 00:48 173 H 134/84 01/31/23 00:45 88 100 01/31/23 00:40 84 100 01/31/23 00:35 82 99 01/31/23 00:30 83 100 01/31/23 00:25 86 99 01/31/23 00:20 91 H 100 01/31/23 00:15 84 99 01/31/23 00:10 86 98 01/31/23 00:05 97 H 100 01/31/23 00:00 89 100 01/30/23 23:55 87 98 01/30/23 23:53 88 119/59 L 01/30/23 23:50 90 98 01/30/23 23:45 84 98 01/30/23 23:40 85 99 01/30/23 23:35 83 99 01/30/23 23:30 83 99 01/30/23 23:25 81 98 01/30/23 23:20 82 98 01/30/23 23:15 80 98 01/30/23 23:10 86 100 01/30/23 23:05 92 H 100 01/30/23 23:00 94 H 99 01/30/23 22:55 85 99 01/30/23 22:50 88 100 01/30/23 22:45 90 99 01/30/23 22:40 89 100 01/30/23 22:35 87 100 01/30/23 22:30 87 100 01/30/23 22:25 89 100 01/30/23 22:20 87 100 01/30/23 22:15 90 100 01/30/23 22:10 89 100 01/30/23 22:05 91 H 100 01/30/23 22:00 91 H 100 01/30/23 21:55 91 H 99 01/30/23 21:50 91 H 99 01/30/23 21:49 90 118/70 01/30/23 21:45 91 H 100 01/30/23 21:43 96 H 94 01/30/23 21:40 91 H 99 01/30/23 21:35 88 100 01/30/23 21:30 91 H 100 01/30/23 21:25 88 100 01/30/23 21:20 89 100 01/30/23 21:15 88 99 01/30/23 21:10 92 H 98 01/30/23 21:05 91 H 98 01/30/23 21:00 93 H 96 01/30/23 20:55 93 H 97 01/30/23 20:50 93 H 98 01/30/23 20:45 91 H 100 01/30/23 20:40 98 H 97 01/30/23 20:35 87 99 01/30/23 20:30 87 100 01/30/23 20:25 84 100 01/30/23 20:20 83 100 01/30/23 20:15 95 H 100 01/30/23 20:10 89 99 01/30/23 20:05 83 99 01/30/23 20:00 82 99 01/30/23 19:55 93 H 100 01/30/23 19:50 90 100 O2 Del Method 01/31/23 07:20 Room Air 01/31/23 06:32 01/31/23 04:45 01/31/23 04:45 01/31/23 02:00 01/31/23 02:00 01/31/23 00:00 01/30/23 23:00 01/30/23 22:00 01/30/23 20:30 01/31/23 04:45 01/31/23 01:50 01/31/23 01:48 01/31/23 01:45 01/31/23 01:40 01/31/23 01:35 01/31/23 01:30 01/31/23 01:25 01/31/23 01:20 01/31/23 01:15 01/31/23 01:10 01/31/23 01:05 01/31/23 01:00 01/31/23 00:55 01/31/23 00:50 01/31/23 00:48 01/31/23 00:45 01/31/23 00:40 01/31/23 00:35 01/31/23 00:30 01/31/23 00:25 01/31/23 00:20 01/31/23 00:15 01/31/23 00:10 01/31/23 00:05 01/31/23 00:00 01/30/23 23:55 01/30/23 23:53 01/30/23 23:50 01/30/23 23:45 01/30/23 23:40 01/30/23 23:35 01/30/23 23:30 01/30/23 23:25 01/30/23 23:20 01/30/23 23:15 01/30/23 23:10 01/30/23 23:05 01/30/23 23:00 01/30/23 22:55 01/30/23 22:50 01/30/23 22:45 01/30/23 22:40 01/30/23 22:35 01/30/23 22:30 01/30/23 22:25 01/30/23 22:20 01/30/23 22:15 01/30/23 22:10 01/30/23 22:05 01/30/23 22:00 01/30/23 21:55 01/30/23 21:50 01/30/23 21:49 01/30/23 21:45 01/30/23 21:43 01/30/23 21:40 01/30/23 21:35 01/30/23 21:30 01/30/23 21:25 01/30/23 21:20 01/30/23 21:15 01/30/23 21:10 01/30/23 21:05 01/30/23 21:00 01/30/23 20:55 01/30/23 20:50 01/30/23 20:45 01/30/23 20:40 01/30/23 20:35 01/30/23 20:30 01/30/23 20:25 01/30/23 20:20 01/30/23 20:15 01/30/23 20:10 01/30/23 20:05 01/30/23 20:00 01/30/23 19:55 01/30/23 19:50 <Andre Dejesus MD - Last Filed: 02/04/23 13:16> Co-Signing Physician Notes Patient seen with resident and agree with the above findings and plan. Routine care. Resident Activity Tracking <Juan Faith DO - Last Filed: 01/31/23 08:22> Resident Involvement: Resident Care Provided Care Provided: OB Delivery
[2023-01-31] MEDS: PRENATAL VITAMIN 1 TAB PO SCH (08:50)
[2023-01-31] MEDS: SERTRALINE HCL 50 MG TABLET PO SCH (08:50)
[2023-01-31] MEDS: DOCUSATE SODIUM 100 MG CAP PO SCH ×2 (08:50→20:24)
[2023-01-31] MEDS: NICOTINE 14 MG/24 HR PATCH TD SCH (08:51)
[2023-01-31] MEDS: NIFEdipine EXTENDED REL 30 MG TABCR PO SCH (08:51)
[2023-01-31] MEDS: IBUPROFEN 600 MG TAB PO PRN ×3 (08:53→20:10)
[2023-01-31 09:43] LABS: Hepatitis C Vira RNA (Log) PCR <1.18 NOT DETECTED Log IU/mL (NOT DETECTED); Hepatitis C Viral RNA by PCR <15 NOT DETECTED IU/mL (NOT DETECTED)
[2023-01-31] MEDS ORDERED: MEASLES, MUMPS & RUBELLA VIRUS VIAL SQ ONE (12:05)
[2023-01-31] MEDS ORDERED: bisacodyL 5 MG TABEC PO SCH (20:00)
[2023-01-31] MEDS: ACETAMINOPHEN 325 MG TAB PO PRN (23:19)
[2023-01-31 23:57] LABS: Marijuana Quant, GCMS Urine 154 ng/mL (<5)
[2023-02-01] MEDS: IBUPROFEN 600 MG TAB PO PRN (03:43)
--- NOTE | 2023-02-01 06:23 | Obstetrical Progress Note ---
Date of Service <Juan Faith - Last Filed: 02/01/23 06:52> February 01, 2023 Assessment & Plan <Juan Faith - Last Filed: 02/01/23 06:52> (1) Vaginal delivery: (2) Eclampsia: Plan - Feels well today. Eating well, voiding well, ambulating well. - Pain well controlled with ibuprofen 600mg Q4H PRN - Routine care -- OOB, ambulation, diet progression as tolerated - After discharge will have 6 week follow-up with Dr. Luther. - Patient had possible eclampsia versus syncopal episode with elevated blood pressure, approximately 8 hours after delivery. - Continue on Procardia 60 mg every morning. Will follow-up in the office in 1 week. - Discharge today Day #:: 2 <Bernie Meadows MD - Last Filed: 02/03/23 16:47> (1) Vaginal delivery: (2) Eclampsia: Subjective <Juan Hsumarilyn - Last Filed: 02/01/23 06:52> Ambulation: ambulating normally Voiding: no voiding problems Passing Gas:: Yes Diet Tolerance:: regular diet Lochia:: Small Feeding Type:: bottle feeding Current Pain Level(1-10): 3 Review of Systems Denies fever, chills, sweats Denies shortness of breath, difficulty breathing, chest pain, palpitations, chest pressure. Denies breast pain. Denies dysuria. Denies headache or changes in vision. Physical Exam <Juan Faith - Last Filed: 02/01/23 06:52> General: Alert, oriented. No acute distress. Cardiac: Regular rate and rhythm, no murmurs/rubs/gallops. Respiratory: Clear to auscultation bilaterally a/p, no wheezes/rales/rhonchi. No increased work of breathing. Symmetrical chest rise. No respiratory distress. Abdomen: Soft, nontender, nondistended. Bowel sounds present. Uterus: Uterine fundus firm, palpable 2 cm below umbilicus. Lower Extremities: No lower extremity edema or swelling. No deep calf pain. Robert's negative bilaterally. Results & Data <Juan NewsomeAlessandra AracelisDO marilyn - Last Filed: 02/01/23 06:52> Vital Signs (Past 12 Hours) Vital Signs Temp Pulse Resp BP O2 Del Method 02/01/23 06:10 96 H 156/92 H 02/01/23 03:46 105 H 158/92 H 01/31/23 23:10 36.8 C 93 H 18 152/87 H Room Air 01/31/23 20:15 36.8 C 89 18 145/83 H Laboratory Results 01/30/23 08:41 01/30/23 08:44 <Bernie Meadows MD - Last Filed: 02/03/23 16:47> Co-Signing Physician Notes Resident Physician Supervision Note: I interviewed and examined the patient. Discussed with Dr. FAITH and agree with findings and plan as documented in the note. Any exceptions or clarifications a re listed here: PIH symptoms reviewed with patient prior to discharge, and she was aware to contact us in the event of any of them returning, as well as to have a 1 week BP follow up in the office. Documented By: Bernie Meadows MD, FACOG Resident Activity Tracking <Juan Faith DO - Last Filed: 02/01/23 06:52> Resident Involvement: Resident Care Provided Care Provided: OB Delivery
[2023-02-01] MEDS: NIFEdipine EXTENDED REL 30 MG TABCR PO SCH (08:27)
[2023-02-01] MEDS: PRENATAL VITAMIN 1 TAB PO SCH (08:27)
[2023-02-01] MEDS: DOCUSATE SODIUM 100 MG CAP PO SCH ×2 (08:27→20:13)
[2023-02-01] MEDS: SERTRALINE HCL 50 MG TABLET PO SCH (08:27)
[2023-02-01] MEDS: ACETAMINOPHEN 325 MG TAB PO PRN ×3 (08:28→23:48)
[2023-02-01] MEDS: NICOTINE 14 MG/24 HR PATCH TD SCH (08:35)
--- NOTE | 2023-02-01 11:41 | Communication Note ---
Date of Service: February 01, 2023 Called by nursing that BPs still in the mid 150s after nifedipine dosing at 1 and 2 hrs after administration. Was instructed to have pt rest in chair w/ feet flat on the ground and wait 15 min but still persisted in mid 150s. Pt evaluated with her mom in room and continued to deny s/s of pre-eclampsia. of note did have nicotine patch replaced and this was initially thought to be related to bp elevations however they persisted, they have been changed daily while here and had normal bp yesterday. Pt does not feel particularly anxious about events or still being in the hospital at this point. Discussed continued monitoring throughout the day to see if will need additional medication titration and they are amenable. Discussed possibility of needing to stay overnight as well given timing of when delivery was as bps can sometimes start increasing 48-72hrs after delivery which is around now. Ample time given for questions, answered to apparent satisfaction
[2023-02-01] MEDS ORDERED: NIFEdipine EXTENDED REL 30 MG TABCR PO STA ×2 (16:04→20:30)
--- NOTE | 2023-02-01 16:07 | Communication Note ---
Date of Service: February 01, 2023 Met w/ pt and mom at bedside. BPs remain in the mid 150s, never lower. Pt resting, not anxious, no s/s PET. Discussed that I would rec staying overnight as BPs really still have not lowered much as I think she may require BID dosing of her nifedipine and they are in agreement. Will give a dose of nifedipine 30xl now and recheck in a few hours. If still elevated ,will give another 30 later to total 60 BID which would max out the nifedipine. Did not really seem to respond to the IV labetalol intrapartum so plan to max out the nifedipine first. She is not or pumping at all so if still not responsive, will consider medicine consult to consider alternatives.
[2023-02-02] MEDS: IBUPROFEN 600 MG TAB PO PRN ×2 (03:46→09:28)
--- NOTE | 2023-02-02 07:27 | Obstetrical Progress Note ---
Date of Service February 02, 2023 Assessment & Plan (1) Pre-eclampsia, severe: (2) Hypertension, condition or complication: Plan 37 yo PP3 from c/b PET w/ SF, doing well -Meeting all pp milestones. BPs remained 150s yesterday so procardia was increased to 60mg PO BID. Will see how BPs respond this morning, still asymptomatic -O+/rubella nonimmune/ -f/u 6 weeks for appt, continue BP monitoring Subjective Ambulation: ambulating normally Voiding: no voiding problems Passing Gas:: Yes Diet Tolerance:: regular diet Lochia:: Small Feeding Type:: bottle feeding Pain well managed with medication Review of Systems Denies fevers, chills, n/v, ERAZO, CP, SOB Physical Exam Constitutional WD/WN, vitals as above no acute distress Respiratory normal respiratory effort, lungs clear to auscultation Cardiovascular RRR, no murmur, no edema Gastrointestinal (Abdomen) Percussion/Palpation: abdomen soft; abdomen nontender fundus firm at umbilicus and NT Musculoskeletal BLE symmetric, nonerythematous, nontender Results & Data Vital Signs (Past 12 Hours) Vital Signs Temp Pulse Resp BP Pulse Ox O2 Del Method 02/02/23 03:40 156/86 H 02/01/23 23:40 98.2 F 92 H 16 152/86 H 99 Room Air 02/01/23 21:35 156/78 H 02/01/23 20:27 162/88 H 02/01/23 20:05 98.6 F 94 H 16 164/80 H 99 Room Air
[2023-02-02] MEDS ORDERED: NIFEdipine EXTENDED REL 30 MG TABCR PO SCH (09:00)
[2023-02-02] MEDS: DOCUSATE SODIUM 100 MG CAP PO SCH (09:27)
[2023-02-02] MEDS: PRENATAL VITAMIN 1 TAB PO SCH (09:27)
[2023-02-02] MEDS: SERTRALINE HCL 50 MG TABLET PO SCH (09:28)
[2023-02-02] MEDS: NICOTINE 14 MG/24 HR PATCH TD SCH (09:29)
[2023-02-02] MEDS: ACETAMINOPHEN 325 MG TAB PO PRN (12:50)
--- NOTE | 2023-02-02 14:22 | Communication Note ---
Date of Service: February 02, 2023 Nursing informed me that BP was 145/94. Pt had noted headache earlier this morning but this has since resolved with tylenol. She does note some neck pain but suspect this is tension/stress related as it feels better with neck massage. Suspect there is dehydration/sleep component as well as she has not been drinking as much water as she was previously. Denies any other s/s PET. BP is better today so I think stable for d/c home today, will continue procardia 60 XL BID and plan short term f/u in the office for BP check and med titration if indicated. Discussed to check bp if having s/s PET or if feeling lightheaded/dizzy as this could indicate higher or low BPs respectively and may indicate BP med titration. Discussed importance of adequate hydration, nutrition and sleep as well. Pt verbalized understanding of all of this
== END 2023-02-02 17:30 | disposition home or self-care (01) | DRG 807 ==
LOC: OPB 19:12 → 4S1 19:15 → 4E2 01-31 06:32

== ENCOUNTER 2023-02-03 12:43 | Inpatient (IN) ==
[2023-02-03] MEDS ORDERED: diphenhydrAMINE 50 MG/ML VIAL IV STA (13:51)
[2023-02-03] MEDS ORDERED: PROCHLORPERAZINE 1 ML IV ONE (13:51)
[2023-02-03] MEDS ORDERED: SODIUM CHLORIDE 0.9% 1000ML 1,000 ML IV ONE (13:51)
--- NOTE | 2023-02-03 13:53 | Emergency Department Note ---
Impression & Plan Headache, hypertension ED Provider Note HISTORY OF PRESENT ILLNESS: Patient is a 37-year-old female presenting with head and neck pain. Patient is 4 days . She had preeclampsia during her and had an eclamptic seizure after delivery. She was on IV hydralazine, IV labetalol and IV magnesium. She was just discharged from the hospital late last evening. She went home and was having persistently elevated blood pressures and progressively worsening headache. Reports nausea. Denies any fevers. Reports posterior neck pain as well. Denies any injury to the head or neck. She did have an epidural during her delivery. She called the OB's clinic and was referred to the emergency department for further evaluation ROS: as above PHYSICAL EXAM: Constitutional: Patient appears in no acute distress. HENT: Head: Normocephalic and atraumatic. Eyes: EOMI, PERRL Mouth/Throat: Mucous membranes moist. Neck: Trachea midline. Neck supple. Full range of motion of the neck without meningismus. Cardiovascular: Tachycardic with regular rhythm. No murmurs, rubs or gallops. Intact distal pulses. Pulmonary/Chest: No respiratory distress. Breath sounds clear and equal bilaterally. No wheezes or rales. Abdominal: BS +. Abdomen soft, no tenderness, rebound or guarding. Musculoskeletal: No edema, tenderness or deformity noted. Skin: Warm and dry. No rash, erythema, pallor or cyanosis Psychiatric: Appropriate mood and affect for situation. Neurological: Alert and keenly responsive. CN II-XII grossly intact, moving all extremities equally and fully. MDM: - Vitals signs showed hypertension and tachycardia. - History obtained via patient. Patient presents with headache and hypertension. Patient is 4 days . She had not eclamptic seizure after delivery of her baby few days ago. She is on IV hydralazine, IV labetalol and IV magnesium on the VINYL INSTALLER. She was discharged last night. Has had progressively worsening headache and neck pain in the last 24 hours. Has also had notably elevated blood pressures. She called the OB's clinic and was referred to the emergency department for further evaluation - Chronic conditions affecting care: eclampsia - Differential diagnoses include, but are not limited to: preeclampsia; eclampsia; intracranial hemorrhage; electrolyte abnormality - Order placed for continuous cardiac monitoring. At this time, monitor showed rate of 103 bpm with normal sinus rhythm, per my interpretation. - External medical records reviewed. OB notes reviewed from patient's recent admission. - EKG reviewed by myself showed sinus rhythm. Rate tachycardic. No acute ischemic changes - Laboratory workup interpreted by myself showed normal WBC; anemia (Hgb 8.1 - stable from 4 days ago); stable electrolytes other than slight hypomagnesemia (Mg 1.6) - CT head wo contrast negative for acute intracranial pathology. CTA negative for acute intracranial pathology or vascular pathology. - Patient given 1L NS, 10 mg IV compazine and 50 mg IV benadryl. On reassessment, the patient reports her headache is significantly improved. - Patient given 10 mg IV hydralazine for elevated blood pressure. - Discussed case with OB assistant front office manager, Dr. Muñiz. Recommended loading the patient with 6 g of IV magnesium, as she had a eclamptic seizure postdelivery. Recommended starting magnesium infusion at 2 g an hour. Recommended blood pressure goal of <140/90. Recommended 10 to 20 mg IV labetalol pushes as needed for blood pressure control. Patient to be admitted to OB floor. - Patient admitted to OB inpatient service for further evaluation and management. I provided 41 minutes of critical care time to this patient's care outside of billable procedures. ASSESSMENT AND PLAN: Diagnosis: headache; hypertension Plan: admit Past Med/Surg History Medical History (Updated 02/03/23 @ 16:21 by Nina Sloan MD) Depression Eclampsia Encounter for pre-operative examination Preeclampsia Supervision of elderly primigravida Vaginal delivery Family History Father Diabetes Mother Hypertension Grandmother Lung cancer Aunt Breast cancer Social History (Updated 09/10/22 @ 07:44 by Bobbi Jade) Smoking Status: Current every day smoker Cigarettes Per Day: 5; Hx Substance Use: Yes (alcohol) Substance Use Type Other:: not currently using Preferred Language: Yoruba Communication Ability: Effective 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 Beliefs That Will Affect Care: None marital status: Single marital status details: Maribel [phone] Current Living Situation: Family Current Living Situation Comment: lives with mom at this time current occupational status: unemployed Feels Safe at Home: Yes Allergies Allergies Allergy/AdvReac Type Severity Reaction Status Date / Time No Known Allergies Allergy Verified 02/03/23 15:05 Home Meds Home Medications Medication Instructions Recorded Confirmed medical marijuana Card 1 dose inhalation DIRECTED PRN 09/10/22 02/03/23 NEEDED ferrous gluconate 324 mg (38 mg 324 mg PO BID 11/07/22 02/03/23 iron) tablet Previous Rx's Medication Instructions Recorded prenat.vits,concha,[id number] 1 tab PO DAILY #90 tabs 09/13/22 sertraline 50 mg tablet 50 mg PO DAILY #30 tabs 12/26/22 nifedipine 30 mg tablet,extended 60 mg PO Q12 #60 tabs 02/02/23 release 24 hr (Procardia XL) Results & Data (ED) Vital Signs Vital Signs - 24 hr 02/03/23 12:46 02/03/23 13:07 02/03/23 13:02 Temperature 36.8 C Temperature Source Temporal Artery Scan Pulse Rate 129 H 104 H 108 H Pulse Rate [Apical] Pulse Rate from SpO2 Sensor 110 H Pulse Rhythm Respiratory Rate 18 20 Respiratory Effort / Characteristics Non-Labored Spontaneous Respiratory Depth Normal Respiratory Pattern Regular Blood Pressure 182/116 H 174/116 H Blood Pressure [Right Arm] Blood Pressure Mean 138 135 Blood Pressure Mean [Right Arm] Blood Pressure Position Sitting Pulse Oximetry 98 99 Oxygen Delivery Method Room Air Sepsis Recent Fever Within 48 Hours No Sepsis New/Unexplained Change in Mental Status N/A Sepsis Action Taken by Nursing No Action Required 02/03/23 13:51 02/03/23 13:10 02/03/23 13:20 Temperature Temperature Source Pulse Rate 117 H 111 H 105 H Pulse Rate [Apical] Pulse Rate from SpO2 Sensor 111 H 104 H Pulse Rhythm Regular Respiratory Rate 20 20 22 Respiratory Effort / Characteristics Respiratory Depth Respiratory Pattern Blood Pressure Blood Pressure [Right Arm] Blood Pressure Mean Blood Pressure Mean [Right Arm] Blood Pressure Position Pulse Oximetry 97 99 99 Oxygen Delivery Method Room Air Sepsis Recent Fever Within 48 Hours Sepsis New/Unexplained Change in Mental Status Sepsis Action Taken by Nursing 02/03/23 13:30 02/03/23 13:30 02/03/23 13:40 Temperature Temperature Source Pulse Rate 111 H 123 H Pulse Rate [Apical] Pulse Rate from SpO2 Sensor 109 H 127 H Pulse Rhythm Respiratory Rate 18 18 Respiratory Effort / Characteristics Respiratory Depth Respiratory Pattern Blood Pressure 162/110 H Blood Pressure [Right Arm] Blood Pressure Mean 127 Blood Pressure Mean [Right Arm] Blood Pressure Position Pulse Oximetry 99 98 Oxygen Delivery Method Sepsis Recent Fever Within 48 Hours Sepsis New/Unexplained Change in Mental Status Sepsis Action Taken by Nursing 02/03/23 13:50 02/03/23 14:00 02/03/23 14:00 Temperature Temperature Source Pulse Rate 108 H 103 H Pulse Rate [Apical] Pulse Rate from SpO2 Sensor 109 H 105 H Pulse Rhythm Respiratory Rate 30 H 19 Respiratory Effort / Characteristics Respiratory Depth Respiratory Pattern Blood Pressure 148/105 H Blood Pressure [Right Arm] Blood Pressure Mean 119 Blood Pressure Mean [Right Arm] Blood Pressure Position Pulse Oximetry 99 99 Oxygen Delivery Method Sepsis Recent Fever Within 48 Hours Sepsis New/Unexplained Change in Mental Status Sepsis Action Taken by Nursing 02/03/23 14:10 02/03/23 14:20 02/03/23 14:30 Temperature Temperature Source Pulse Rate 107 H 109 H Pulse Rate [Apical] Pulse Rate from SpO2 Sensor 106 H 110 H Pulse Rhythm Respiratory Rate 24 21 Respiratory Effort / Characteristics Respiratory Depth Respiratory Pattern Blood Pressure 154/99 H Blood Pressure [Right Arm] Blood Pressure Mean 117 Blood Pressure Mean [Right Arm] Blood Pressure Position Pulse Oximetry 100 100 Oxygen Delivery Method Sepsis Recent Fever Within 48 Hours Sepsis New/Unexplained Change in Mental Status Sepsis Action Taken by Nursing 02/03/23 14:30 02/03/23 14:40 02/03/23 14:50 Temperature Temperature Source Pulse Rate 120 H 104 H 107 H Pulse Rate [Apical] Pulse Rate from SpO2 Sensor 119 H 104 H Pulse Rhythm Respiratory Rate 25 H 17 22 Respiratory Effort / Characteristics Respiratory Depth Respiratory Pattern Blood Pressure Blood Pressure [Right Arm] Blood Pressure Mean Blood Pressure Mean [Right Arm] Blood Pressure Position Pulse Oximetry 100 99 Oxygen Delivery Method Sepsis Recent Fever Within 48 Hours Sepsis New/Unexplained Change in Mental Status Sepsis Action Taken by Nursing 02/03/23 15:14 02/03/23 15:16 02/03/23 15:16 Temperature Temperature Source Pulse Rate 107 H 102 H Pulse Rate [Apical] Pulse Rate from SpO2 Sensor 106 H 102 H Pulse Rhythm Respiratory Rate 23 22 Respiratory Effort / Characteristics Respiratory Depth Respiratory Pattern Blood Pressure 161/106 H Blood Pressure [Right Arm] Blood Pressure Mean 124 Blood Pressure Mean [Right Arm] Blood Pressure Position Pulse Oximetry 99 99 Oxygen Delivery Method Sepsis Recent Fever Within 48 Hours Sepsis New/Unexplained Change in Mental Status Sepsis Action Taken by Nursing 02/03/23 15:20 02/03/23 16:11 Temperature Temperature Source Pulse Rate 104 H Pulse Rate [Apical] 108 H Pulse Rate from SpO2 Sensor 104 H Pulse Rhythm Respiratory Rate 21 18 Respiratory Effort / Characteristics Non-Labored Respiratory Depth Normal Respiratory Pattern Blood Pressure Blood Pressure [Right Arm] 151/92 H Blood Pressure Mean Blood Pressure Mean [Right Arm] 111 Blood Pressure Position Pulse Oximetry 99 98 Oxygen Delivery Method Room Air Sepsis Recent Fever Within 48 Hours Sepsis New/Unexplained Change in Mental Status Sepsis Action Taken by Nursing Laboratory Data 02/03/23 13:02 02/03/23 13:02 Lab Results 02/03/23 02/03/23 02/03/23 Range/Units 12:56 13:02 13:02 WBC 8.73 (4.8-10.8) K/ul RBC 3.31 L (4.20-5.40) M/uL Hgb 8.1 L (12.0-16.0) g/dl Hct 24.5 L (37.0-47.0) % MCV 74.0 L (80.0-100.0) fL MCH 24.5 L (25.0-34.0) pg MCHC 33.1 (32.0-36.0) g/dL RDW Std Deviation 37.2 (36.4-46.3) fL RDW Coeff of Burke 14.1 (11.5-14.5) % Plt Count 387 (130-400) K/uL MPV 10.5 (9.4-12.4) fL Immature Gran % (Auto) 0.9 % Neut % (Auto) 63.6 % Lymph % (Auto) 24.7 % [place] % (Auto) 9.5 % Eos % (Auto) 1.0 % Baso % (Auto) 0.3 % Neut # (Auto) 5.54 (1.40-6.50) K/uL Lymph # (Auto) 2.16 (1.2-3.4) K/uL [place] # (Auto) 0.83 H (0.11-0.59) K/uL Eos # (Auto) 0.09 (0-0.50) K/uL Baso # (Auto) 0.03 (0-0.2) K/uL Immature Gran # (Auto) 0.08 (0.01-0.20) K/uL Sodium 136 (136-145) mmol/L Potassium 3.8 (3.5-5.1) mmol/L Chloride 103 (98-107) mmol/L Carbon Dioxide 24 (21-32) mmol/L Anion Gap 9 (3-11) BUN 12 (6-23) mg/dl Creatinine 0.74 (0.6-1.2) mg/dl Est Cr Clr Drug Dosing Not Reportable Est GFR ( Amer) 121.7 ml/min Est GFR (Non-Af Amer) 105.0 ml/min BUN/Creatinine Ratio 16.2 (10-20) Glucose 90 (70-99(Fasting)) mg/dl Lactate (0.4-2.0) mmol/L Calcium 9.3 (8.6-10.3) mg/dl Magnesium 1.6 L (1.7-2.4) mg/dl Total Bilirubin 0.4 (0.2-1.0) mg/dl AST 20 (13-39) U/L ALT 11 (7-52) U/L Alkaline Phosphatase 119 H (34-104) U/L Troponin I High Sens 8.7 (0-14) pg/ml Total Protein 7.7 (6.0-8.3) gm/dl Albumin 4.0 (3.4-5.0) gm/dl Globulin 3.7 (2.5-4.0) gm/dl Albumin/Globulin Ratio 1.1 (0.9-2) Lipase 17 (11-82) U/L Urine Color Yellow Urine Appearance Clear (Clear) Urine pH 7.5 (4.5-7.5) Ur Specific [place] 1.017 (1.000-1.030) Urine Protein Trace H (Negative) Urine Glucose (UA) Negative (Negative) Urine Ketones 1+ H (Negative) Urine Blood 3+ H (Negative) Urine Nitrite Negative (Negative) Urine Bilirubin Negative (Negative) Urine Urobilinogen Negative (Negative) Ur Leukocyte Esterase 2+ H (Negative) 02/03/23 Range/Units 14:29 WBC (4.8-10.8) K/ul RBC (4.20-5.40) M/uL Hgb (12.0-16.0) g/dl Hct (37.0-47.0) % MCV (80.0-100.0) fL MCH (25.0-34.0) pg MCHC (32.0-36.0) g/dL RDW Std Deviation (36.4-46.3) fL RDW Coeff of Burke (11.5-14.5) % Plt Count (130-400) K/uL MPV (9.4-12.4) fL Immature Gran % (Auto) % Neut % (Auto) % Lymph % (Auto) % [place] % (Auto) % Eos % (Auto) % Baso % (Auto) % Neut # (Auto) (1.40-6.50) K/uL Lymph # (Auto) (1.2-3.4) K/uL [place] # (Auto) (0.11-0.59) K/uL Eos # (Auto) (0-0.50) K/uL Baso # (Auto) (0-0.2) K/uL Immature Gran # (Auto) (0.01-0.20) K/uL Sodium (136-145) mmol/L Potassium (3.5-5.1) mmol/L Chloride (98-107) mmol/L Carbon Dioxide (21-32) mmol/L Anion Gap (3-11) BUN (6-23) mg/dl Creatinine (0.6-1.2) mg/dl Est Cr Clr Drug Dosing Est GFR ( Amer) ml/min Est GFR (Non-Af Amer) ml/min BUN/Creatinine Ratio (10-20) Glucose (70-99(Fasting)) mg/dl Lactate 0.6 (0.4-2.0) mmol/L Calcium (8.6-10.3) mg/dl Magnesium (1.7-2.4) mg/dl Total Bilirubin (0.2-1.0) mg/dl AST (13-39) U/L ALT (7-52) U/L Alkaline Phosphatase (34-104) U/L Troponin I High Sens (0-14) pg/ml Total Protein (6.0-8.3) gm/dl Albumin (3.4-5.0) gm/dl Globulin (2.5-4.0) gm/dl Albumin/Globulin Ratio (0.9-2) Lipase (11-82) U/L Urine Color Urine Appearance (Clear) Urine pH (4.5-7.5) Ur Specific [place] (1.000-1.030) Urine Protein (Negative) Urine Glucose (UA) (Negative) Urine Ketones (Negative) Urine Blood (Negative) Urine Nitrite (Negative) Urine Bilirubin (Negative) Urine Urobilinogen (Negative) Ur Leukocyte Esterase (Negative) Administered Medications Magnesium Sulfate (Magnesium Sulfate / Wtr) 40 gm in 1,000 mls @ 50 mls/hr IV .Q20H YANELIS Stop: 03/05/23 13:59 Last Admin: 02/03/23 16:04 Dose: 50 mls/hr Documented By: VANDANA Co-signed By: WALLACE Discontinued Medications Diphenhydramine HCl (Diphenhydramine 50 Mg/Ml Vial) 25 mg IV NOW STA Stop: 02/03/23 13:52 Last Admin: 02/03/23 14:08 Dose: 25 mg Documented By: ROSIE Hydralazine HCl (Hydralazine Hcl 20 Mg/Ml Vial) 10 mg IV NOW STA Stop: 02/03/23 14:00 Last Admin: 02/03/23 15:26 Dose: 10 mg Documented By: WALLACE Sodium Chloride (Nss 1000ml) 1,000 mls @ 999 mls/hr IV .Q1H1M ONE Stop: 02/03/23 14:51 Last Infusion: 02/03/23 15:50 Dose: 0 mls/hr Documented By: Admin: 02/03/23 14:09 Dose: 999 mls/hr Documented By: ROSIE Prochlorperazine (Compazine) 1 mls @ 1 mls/min IV ONE ONE Stop: 02/03/23 13:52 Last Admin: 02/03/23 14:09 Dose: 1 mls/min Documented By: ROSIE Ioversol (Optiray 320 500ml) 109 ml IV ONCE ONE Stop: 02/03/23 15:07 Last Admin: 02/03/23 15:07 Dose: 109 ml Documented By: DEB Labetalol HCl (Labetalol Hcl Iv 5 Mg/Ml 20ml) 10 mg IV NOW STA Stop: 02/03/23 16:03 Last Admin: 02/03/23 16:06 Dose: 10 mg Documented By: VANDANA Co-signed By: WALLACE Magnesium Sulfate (Mag Sulfate 6gm Bolus From Bag) 6 gm IV ONE ONE Stop: 02/03/23 13:57 Last Admin: 02/03/23 16:05 Dose: 6 gm Documented By: VANDANA Co-signed By: [facility] Imaging Data Radiologist's Impression: Head CT 02/03/23 13:51 CT angio head w con, CT head/brain wo con CLINICAL HISTORY: 37 years-old Female with headache/neck pain; HTN. Acute headache with hypertension COMPARISON STUDY: None TECHNIQUE: Unenhanced axial CT scan of the brain is performed. Subsequently, following the IV administration of 109 cc of Optiray, CT angiogram of the brain was performed from the skull base to the vertex. Images are reviewed in the axial, sagittal, and coronal planes. 3-D MIPS images are created and assessed. IV contrast was administered without complication. All measurements were obtained according to NASCET criteria. A dose lowering technique was utilized adhering to the principles of ALARA. CT DOSE: 561.47 mGy.cm FINDINGS: CT BRAIN: There is no acute intracranial hemorrhage, midline shift, hydrocephalus, intra- axial mass, territorial ischemia or abnormal extra-axial collections. No abnormal intra-axial or extra-axial enhancement. Subcentimeter lipoma of the superior quadrigeminal plate. Mastoid air cells and middle ear cavities are clear. No calvarial fracture. Paranasal sinuses are clear. CT ANGIOGRAM OF THE BRAIN: The imaged bilateral internal carotid arteries are patent. The bilateral anterior and middle cerebral arteries are also patent. The vertebrobasilar system and posterior cerebral arteries are widely patent. There is no aneurysm, high-grade stenosis, or proximal branch occlusion identified. Dural sinuses appear patent. IMPRESSION: 1. No acute intracranial abnormality. 2. Unremarkable CTA of the head. ACT 112: Negative or not required by law. The above report was generated using voice recognition software. It may contain grammatical, syntax or spelling errors. Electronically signed by: Andre Hassan M.D. 02/03/2023 3:19 PM Head CTA 02/03/23 13:51 CT angio head w con, CT head/brain wo con CLINICAL HISTORY: 37 years-old Female with headache/neck pain; HTN. Acute headache with hypertension COMPARISON STUDY: None TECHNIQUE: Unenhanced axial CT scan of the brain is performed. Subsequently, following the IV administration of 109 cc of Optiray, CT angiogram of the brain was performed from the skull base to the vertex. Images are reviewed in the axial, sagittal, and coronal planes. 3-D MIPS images are created and assessed. IV contrast was administered without complication. All measurements were obtained according to NASCET criteria. A dose lowering technique was utilized adhering to the principles of ALARA. CT DOSE: 561.47 mGy.cm FINDINGS: CT BRAIN: There is no acute intracranial hemorrhage, midline shift, hydrocephalus, intra- axial mass, territorial ischemia or abnormal extra-axial collections. No abnormal intra-axial or extra-axial enhancement. Subcentimeter lipoma of the superior quadrigeminal plate. Mastoid air cells and middle ear cavities are c lear. No calvarial fracture. Paranasal sinuses are clear. CT ANGIOGRAM OF THE BRAIN: The imaged bilateral internal carotid arteries are patent. The bilateral anterior and middle cerebral arteries are also patent. The vertebrobasilar system and posterior cerebral arteries are widely patent. There is no aneurysm, high-grade stenosis, or proximal branch occlusion identified. Dural sinuses appear patent. IMPRESSION: 1. No acute intracranial abnormality. 2. Unremarkable CTA of the head. ACT 112: Negative or not required by law. The above report was generated using voice recognition software. It may contain grammatical, syntax or spelling errors. Electronically signed by: Andre Hassan M.D. 02/03/2023 3:19 PM Discharge Plan Visit Data Chief Complaint: Referred by Doctor Stated Complaint: COMPLICATION FROM , REF BY DOC ED Provider: Nina Sloan Discharge Problem: Headache, hypertension Forms Stand Alone Forms: My [facility] Prescriptions Prescriptions: No Action ferrous gluconate 324 mg (38 mg iron) tablet 324 mg PO BID prenat.vits,concha,[id number] Tablet 1 tab PO DAILY Qty: 90 3RF medical marijuana Card 1 dose inhalation DIRECTED PRN (Reason: NEEDED) Rx Instructions: per patient sertraline 50 mg tablet 50 mg PO DAILY Qty: 30 2RF nifedipine [Procardia XL] 30 mg tablet extended release 24hr 60 mg PO Q12 Qty: 60 0RF Referrals Referrals: Titi Dudley DO [Primary Care Provider] -
[2023-02-03] MEDS ORDERED: MAG SULFATE 6GM BOLUS FROM BAG IV ONE (13:56)
[2023-02-03] MEDS ORDERED: hydrALAZINE HCL 20 MG/ML VIAL IV STA (13:59)
[2023-02-03 14:39] LABS: Alanine Aminotransferase 11 U/L (7-52); Albumin Globulin Ratio 1.1 (0.9-2); Alkaline Phosphatase 119 U/L (34-104); Anion Gap 9 (3-11); Aspartate Aminotransferase 20 U/L (13-39); BUN Creatinine Ratio 16.2 (10-20); Bilirubin,Total 0.4 mg/dl (0.2-1.0); Blood Urea Nitrogen 12 mg/dl (6-23); Calcium 9.3 mg/dl (8.6-10.3); Carbon Dioxide 24 mmol/L (21-32); Chloride 103 mmol/L (98-107); Est GFR (African American) 121.7 ml/min; Globulin 3.7 gm/dl (2.5-4.0); Glucose 90 mg/dl (70-99(Fasting)); Lipase 17 U/L (11-82); Magnesium 1.6 mg/dl (1.7-2.4); Potassium 3.8 mmol/L (3.5-5.1); Sodium 136 mmol/L (136-145); Total Protein 7.7 gm/dl (6.0-8.3)
[2023-02-03 14:43] LABS: Basophils # (auto) 0.03 K/uL (0-0.2); Basophils % (auto) 0.3 %; Eosinophils # (auto) 0.09 K/uL (0-0.50); Hematocrit (blood only) 24.5 % (37.0-47.0); Hemoglobin 8.1 g/dl (12.0-16.0); Immature Granulocytes # (auto) 0.08 K/uL (0.01-0.20); Immature Granulocytes % (auto) 0.9 %; Lymphocytes # (auto) 2.16 K/uL (1.2-3.4); Lymphocytes % (auto) 24.7 %; Mean Corpuscular Hemoglobin 24.5 pg (25.0-34.0); Mean Corpuscular Hgb Conc 33.1 g/dL (32.0-36.0); Mean Platelet Volume 10.5 fL (9.4-12.4); Monocytes # (auto) 0.83 K/uL (0.11-0.59); Monocytes % (auto) 9.5 %; Neutrophils # (auto) 5.54 K/uL (1.40-6.50); Neutrophils % (auto) 63.6 %; Platelet Count 387 K/uL (130-400); RDW Coefficient of Variation 14.1 % (11.5-14.5); RDW Standard Deviation 37.2 fL (36.4-46.3); Red Blood Count 3.31 M/uL (4.20-5.40); White Blood Count 8.73 K/ul (4.8-10.8)
[2023-02-03 14:45] LABS: Troponin I High Sensitivity 8.7 pg/ml (0-14)
[2023-02-03] MEDS ORDERED: OPTIRAY 320 500ml IV ONE (15:06)
[2023-02-03 15:17] LABS: Appearance Urine Clear (Clear); Bacteria Urine Automated Negative (Negative); Bilirubin Urine Negative (Negative); Blood Urine 3+ (Negative); Color Urine Yellow; Glucose Urine UA Negative (Negative); Ketones Urine 1+ (Negative); Leukocyte Esterase Urine 2+ (Negative); Nitrite Urine Negative (Negative); Specific Gravity Urine 1.017 (1.000-1.030); Urobilinogen Urine Negative (Negative); WBC Urine Automated >30 /hpf (0-5); pH Urine 7.5 (4.5-7.5)
--- NOTE | 2023-02-03 15:20 | CT Scan Report ---
CT angio head w con, CT head/brain wo con CLINICAL HISTORY: 37 years-old Female with headache/neck pain; HTN. Acute headache with hypertension COMPARISON STUDY: None TECHNIQUE: Unenhanced axial CT scan of the brain is performed. Subsequently, following the IV adminis tration of 109 cc of Optiray, CT angiogram of the brain was performed from the skull base to the vert ex. Images are reviewed in the axial, sagittal, and coronal planes. 3-D MIPS images are created and a ssessed. IV contrast was administered without complication. All measurements were obtained according to NASCET criteria. A dose lowering technique was utilized adhering to the principles of ALARA. CT DOSE: 561.47 mGy.cm FINDINGS: CT BRAIN: There is no acute intracranial hemorrhage, midline shift, hydrocephalus, intra-axial mass, territoria l ischemia or abnormal extra-axial collections. No abnormal intra-axial or extra-axial enhancement. Subcentimeter lipoma of the superior quadrigeminal plate. Mastoid air cells and middle ear cavities a re clear. No calvarial fracture. Paranasal sinuses are clear. CT ANGIOGRAM OF THE BRAIN: The imaged bilateral internal carotid arteries are patent. The bilateral anterior and middle cerebral arteries are also patent. The vertebrobasilar system and posterior cerebral arteries are widely [place] nt. There is no aneurysm, high-grade stenosis, or proximal branch occlusion identified. Dural sinuses appear patent. IMPRESSION: 1. No acute intracranial abnormality. 2. Unremarkable CTA of the head. ACT 112: Negative or not required by law. The above report was generated using voice recognition software. It may contain grammatical, syntax o r spelling errors. Electronically signed by: Andre Hassan M.D. 02/03/2023 3:19 PM
[2023-02-03 15:43] LABS: Protein Urine Trace (Negative)
[2023-02-03] MEDS ORDERED: LABETALOL HCL IV 5 MG/ML 20ML IV STA (16:02)
[2023-02-03] MEDS: MAGNESIUM SULFATE / WTR 40 GM/1,000 ML BAG IV SCH (16:04)
[2023-02-03 16:24] LABS: Mucus Urine Present (None Prsent); RBC Urine Automated >30 /hpf (0-4)
[2023-02-03 18:58] LABS: Hematocrit (blood only) 24.9 % (37.0-47.0); Hemoglobin 8.2 g/dl (12.0-16.0); Mean Corpuscular Hemoglobin 24.4 pg (25.0-34.0); Mean Corpuscular Hgb Conc 32.9 g/dL (32.0-36.0); Mean Corpuscular Volume 74.1 fL (80.0-100.0); Mean Platelet Volume 9.6 fL (9.4-12.4); Platelet Count 390 K/uL (130-400); RDW Coefficient of Variation 14.3 % (11.5-14.5); RDW Standard Deviation 37.8 fL (36.4-46.3); Red Blood Count 3.36 M/uL (4.20-5.40); White Blood Count 9.88 K/ul (4.8-10.8)
[2023-02-03 19:16] LABS: Alanine Aminotransferase 11 U/L (7-52); Albumin Globulin Ratio 1.1 (0.9-2); Albumin Level 3.9 gm/dl (3.4-5.0); Alkaline Phosphatase 114 U/L (34-104); Anion Gap 10 (3-11); Aspartate Aminotransferase 18 U/L (13-39); BUN Creatinine Ratio 11.5 (10-20); Bilirubin,Total 0.3 mg/dl (0.2-1.0); Blood Urea Nitrogen 9 mg/dl (6-23); Calcium 8.7 mg/dl (8.6-10.3); Carbon Dioxide 23 mmol/L (21-32); Chloride 102 mmol/L (98-107); Est GFR (African American) 114.2 ml/min; Est GFR (Non-African American) 98.5 ml/min; Globulin 3.5 gm/dl (2.5-4.0); Glucose 171 mg/dl (70-99(Fasting)); Magnesium Therapeutic L&D Only 5.1 mg/dL (4.0-8.0); Potassium 3.3 mmol/L (3.5-5.1); Sodium 135 mmol/L (136-145); Total Protein 7.4 gm/dl (6.0-8.3)
[2023-02-03] MEDS ORDERED: NIFEdipine EXTENDED REL 30 MG TABCR PO ONE (21:00)
--- NOTE | 2023-02-03 21:11 | History & Physical Report ---
Date of Service February 03, 2023 Assessment & Plan (1) hypertension: (2) eclampsia: Plan: Admit to L&D for magnesium sulfate administration. Discussed plan with patient and her mother - will want to give at least 24h of magnesium to improve seizure threshold and reduce risk of repeat seizure. Will need to see improved BPs. Was discharged with plan for 60mg procardia XL BID, rec'd 2 doses of antihypertensives in ER (labetalol, hydralazine - one dose each). At this point at L&D, BPs are normal. Q6h labs, welch, seizure precautions. Admission and Anticipated Discharge Date Admission Date: February 03, 2023 History of Present Illness Chief Complaint: headache, elevated blood pressure Primary Care Provider: Titi Dudley, DO 37yo s/p and eclamptic seizure on 01/30/23, presented to office today with headache and elevated BPs at home. BP at office was 178/110 and she was directed from office to ER for further eval. ER management included preeclampsia lab workup, CT head, and headache cocktail (compazine, benadryl). She received 10mg hydralazine, followed by 10mg labetalol for elevated BPs. She was started on magnesium - 6g loading dose, followed by 2g/hr infusion. She describes the headache as severe, in the back of her head/neck, and NOT associated with vision changes. Has not really had an appetite for the past day. No nausea/vomiting. Has not felt desire to smoke cigarettes or marijuana in the past day, either. No abdominal pain or RUQ pain. No LE swelling. Minimal lochia. Allergies Allergy/AdvReac Type Severity Reaction Status Date / Time No Known Allergies Allergy Verified 02/03/23 15:05 Home Medications Medication Instructions Recorded Confirmed Type medical marijuana Card 1 dose inhalation DIRECTED PRN 09/10/22 02/03/23 History NEEDED prenat.vits,concha,[id number] 1 tab PO DAILY #90 tabs 09/13/22 02/03/23 Rx ferrous gluconate 324 mg (38 mg 324 mg PO BID 11/07/22 02/03/23 History iron) tablet sertraline 50 mg tablet 50 mg PO DAILY #30 tabs 12/26/22 02/03/23 Rx nifedipine 30 mg tablet,extended 60 mg PO Q12 #60 tabs 02/02/23 02/03/23 Rx release 24 hr (Procardia XL) Patient History Medical History (Updated 02/03/23 @ 21:34 by Evie Muñiz DO) Depression Eclampsia Encounter for pre-operative examination Preeclampsia Supervision of elderly primigravida Vaginal delivery Family History Father Diabetes Mother Hypertension Grandmother Lung cancer Aunt Breast cancer Social History (Updated 09/10/22 @ 07:44 by Bobbi Jade) Smoking Status: Current every day smoker Cigarettes Per Day: 5; Hx Substance Use: Yes (alcohol) Substance Use Type Other:: not currently using Preferred Language: Upper Sorbian Communication Ability: Effective Appraisal Technician Required: No Beliefs That Will Affect Care: None marital status: Single marital status details: Maribel [phone] Current Living Situation: Family Current Living Situation Comment: lives with mom at this time current occupational status: unemployed Feels Safe at Home: Yes Physical Exam Physical Exam: Constitutional: alert, in no acute distress. Awake and talking. Skin: normal skin color and pigmentation Neck: the appearance of the neck was normal, no neck mass was observed Pulmonary: no respiratory distress, normal respiratory rhythm and effort Cardiovascular: heart rate and rhythm were normal Abdomen: soft, non-tender, fundus firm. Neurological: The patient was oriented to person, place, and time. Mood and affect were appropriate. Extremities: No edema, no calf tenderness. 3+ DTRs, no clonus Results & Data Vital Signs (Past 12 Hours) Vital Signs Temp Pulse Pulse Resp BP BP Pulse Ox 02/03/23 20:05 18 02/03/23 19:10 36.6 C 18 02/03/23 19:10 18 02/03/23 19:10 02/03/23 21:08 106 H 100 02/03/23 21:05 105 H 119/65 02/03/23 21:03 104 H 100 02/03/23 20:58 107 H 100 02/03/23 20:53 106 H 100 02/03/23 20:50 100 H 116/65 02/03/23 20:48 102 H 100 02/03/23 20:43 101 H 100 02/03/23 20:38 108 H 100 02/03/23 20:35 111 H 119/71 02/03/23 20:33 116 H 100 02/03/23 20:28 108 H 100 02/03/23 20:23 108 H 100 02/03/23 20:20 109 H 108/61 02/03/23 20:18 108 H 100 02/03/23 20:13 107 H 100 02/03/23 20:08 104 H 100 02/03/23 20:05 109 H 115/67 02/03/23 20:03 108 H 100 02/03/23 19:58 108 H 100 02/03/23 19:53 107 H 100 02/03/23 19:50 102 H 116/66 02/03/23 19:48 106 H 100 02/03/23 19:43 110 H 100 02/03/23 19:38 100 H 100 02/03/23 19:35 102 H 115/66 02/03/23 19:33 109 H 100 02/03/23 19:28 123 H 100 02/03/23 19:23 105 H 100 02/03/23 19:20 104 H 137/82 02/03/23 19:18 110 H 100 02/03/23 19:13 102 H 100 02/03/23 19:08 112 H 100 02/03/23 19:05 114 H 126/74 02/03/23 19:03 114 H 100 02/03/23 18:58 111 H 100 02/03/23 18:53 106 H 100 02/03/23 18:50 96 H 130/73 02/03/23 18:48 110 H 100 02/03/23 18:43 101 H 100 02/03/23 18:38 109 H 100 02/03/23 18:39 102 H 143/90 H 02/03/23 18:33 111 H 100 02/03/23 18:28 117 H 100 02/03/23 18:23 98 H 100 02/03/23 18:20 99 H 144/83 H 02/03/23 18:18 102 H 100 02/03/23 18:13 113 H 100 02/03/23 18:08 112 H 100 02/03/23 18:07 108 H 171/96 H 02/03/23 18:06 123 H 156/107 H 02/03/23 18:03 121 H 100 02/03/23 17:50 104 H 151/88 H 02/03/23 17:35 106 H 149/81 H 02/03/23 17:20 102 H 145/75 H 02/03/23 17:05 104 H 130/80 02/03/23 16:23 143/94 H 02/03/23 16:11 108 H 18 151/92 H 98 02/03/23 15:20 104 H 21 99 02/03/23 15:16 161/106 H 02/03/23 15:16 102 H 22 99 02/03/23 15:14 107 H 23 99 02/03/23 14:50 107 H 22 02/03/23 14:40 104 H 17 99 02/03/23 14:30 120 H 25 H 100 02/03/23 14:30 154/99 H 02/03/23 14:20 109 H 21 100 02/03/23 14:10 107 H 24 100 02/03/23 14:00 103 H 19 99 02/03/23 14:00 148/105 H 02/03/23 13:50 108 H 30 H 99 02/03/23 13:40 123 H 18 98 02/03/23 13:30 111 H 18 99 02/03/23 13:30 162/110 H 02/03/23 13:20 105 H 22 99 02/03/23 13:10 111 H 20 99 02/03/23 13:51 117 H 20 97 02/03/23 13:02 108 H 20 174/116 H 99 02/03/23 13:07 104 H 02/03/23 12:46 36.8 C 129 H 18 182/116 H 98 O2 Del Method 02/03/23 20:05 02/03/23 19:10 02/03/23 19:10 02/03/23 19:10 Room Air 02/03/23 21:08 02/03/23 21:05 02/03/23 21:03 02/03/23 20:58 02/03/23 20:53 02/03/23 20:50 02/03/23 20:48 02/03/23 20:43 02/03/23 20:38 02/03/23 20:35 02/03/23 20:33 02/03/23 20:28 02/03/23 20:23 02/03/23 20:20 02/03/23 20:18 02/03/23 20:13 02/03/23 20:08 02/03/23 20:05 02/03/23 20:03 02/03/23 19:58 02/03/23 19:53 02/03/23 19:50 02/03/23 19:48 02/03/23 19:43 02/03/23 19:38 02/03/23 19:35 02/03/23 19:33 02/03/23 19:28 02/03/23 19:23 02/03/23 19:20 02/03/23 19:18 02/03/23 19:13 02/03/23 19:08 02/03/23 19:05 02/03/23 19:03 02/03/23 18:58 02/03/23 18:53 02/03/23 18:50 02/03/23 18:48 02/03/23 18:43 02/03/23 18:38 02/03/23 18:39 02/03/23 18:33 02/03/23 18:28 02/03/23 18:23 02/03/23 18:20 02/03/23 18:18 02/03/23 18:13 02/03/23 18:08 02/03/23 18:07 02/03/23 18:06 02/03/23 18:03 02/03/23 17:50 02/03/23 17:35 02/03/23 17:20 02/03/23 17:05 02/03/23 16:23 02/03/23 16:11 Room Air 02/03/23 15:20 02/03/23 15:16 02/03/23 15:16 02/03/23 15:14 02/03/23 14:50 02/03/23 14:40 02/03/23 14:30 02/03/23 14:30 02/03/23 14:20 02/03/23 14:10 02/03/23 14:00 02/03/23 14:00 02/03/23 13:50 02/03/23 13:40 02/03/23 13:30 02/03/23 13:30 02/03/23 13:20 02/03/23 13:10 02/03/23 13:51 Room Air 02/03/23 13:02 02/03/23 13:07 02/03/23 12:46 Room Air Coding Level of Care Code 14051 INT INP/OBS CARE 255MIN Diagnoses hypertension O16.5 eclampsia O15.2
[2023-02-04 00:27] LABS: Hematocrit (blood only) 24.1 % (37.0-47.0); Hemoglobin 7.9 g/dl (12.0-16.0); Mean Corpuscular Hemoglobin 24.2 pg (25.0-34.0); Mean Corpuscular Hgb Conc 32.8 g/dL (32.0-36.0); Mean Corpuscular Volume 73.9 fL (80.0-100.0); Mean Platelet Volume 9.8 fL (9.4-12.4); Platelet Count 379 K/uL (130-400); RDW Coefficient of Variation 13.9 % (11.5-14.5); RDW Standard Deviation 36.8 fL (36.4-46.3); Red Blood Count 3.26 M/uL (4.20-5.40); White Blood Count 9.09 K/ul (4.8-10.8)
[2023-02-04 00:41] LABS: Alanine Aminotransferase 11 U/L (7-52); Albumin Globulin Ratio 1.1 (0.9-2); Albumin Level 3.7 gm/dl (3.4-5.0); Alkaline Phosphatase 109 U/L (34-104); Anion Gap 9 (3-11); Aspartate Aminotransferase 17 U/L (13-39); BUN Creatinine Ratio 9.7 (10-20); Bilirubin,Total 0.3 mg/dl (0.2-1.0); Blood Urea Nitrogen 7 mg/dl (6-23); Calcium 7.6 mg/dl (8.6-10.3); Carbon Dioxide 23 mmol/L (21-32); Chloride 102 mmol/L (98-107); Est GFR (African American) 125.8 ml/min; Est GFR (Non-African American) 108.5 ml/min; Globulin 3.4 gm/dl (2.5-4.0); Glucose 99 mg/dl (70-99(Fasting)); Magnesium Therapeutic L&D Only 5.9 mg/dL (4.0-8.0); Potassium 3.4 mmol/L (3.5-5.1); Sodium 134 mmol/L (136-145); Total Protein 7.1 gm/dl (6.0-8.3)
[2023-02-04] MEDS ORDERED: LACTATED RINGER'S 1,000 ML IV SCH (06:15)
[2023-02-04 06:17] LABS: Hematocrit (blood only) 24.2 % (37.0-47.0); Mean Corpuscular Hemoglobin 24.2 pg (25.0-34.0); Mean Corpuscular Hgb Conc 33.1 g/dL (32.0-36.0); Mean Corpuscular Volume 73.1 fL (80.0-100.0); Mean Platelet Volume 9.6 fL (9.4-12.4); Platelet Count 375 K/uL (130-400); RDW Standard Deviation 36.6 fL (36.4-46.3); Red Blood Count 3.31 M/uL (4.20-5.40); White Blood Count 7.89 K/ul (4.8-10.8)
[2023-02-04 06:33] LABS: Alanine Aminotransferase 11 U/L (7-52); Albumin Globulin Ratio 1.1 (0.9-2); Albumin Level 3.6 gm/dl (3.4-5.0); Alkaline Phosphatase 114 U/L (34-104); Anion Gap 8 (3-11); Aspartate Aminotransferase 16 U/L (13-39); BUN Creatinine Ratio 7.8 (10-20); Bilirubin,Total 0.3 mg/dl (0.2-1.0); Blood Urea Nitrogen 5 mg/dl (6-23); Calcium 7.3 mg/dl (8.6-10.3); Carbon Dioxide 24 mmol/L (21-32); Chloride 103 mmol/L (98-107); Est GFR (Non-African American) 115.6 ml/min; Globulin 3.4 gm/dl (2.5-4.0); Glucose 98 mg/dl (70-99(Fasting)); Magnesium Therapeutic L&D Only 6.5 mg/dL (4.0-8.0); Potassium 3.9 mmol/L (3.5-5.1); Sodium 135 mmol/L (136-145)
--- NOTE | 2023-02-04 08:35 | Obstetrical Progress Note ---
Date of Service February 04, 2023 Assessment & Plan Admission and Anticipated Discharge Date Admission Date: February 03, 2023 Subjective Doing well overnight. Diuresing well. BPs have improved significantly. Labs normal. She is feeling well - headache has resolved. This morning, slight elevations in blood pressure - therefore will plan to give Procardia 60mg XL this morning. Will plan to continue mag for 24h. Results & Data Vital Signs (Past 12 Hours) Vital Signs Temp Pulse Resp BP Pulse Ox 02/04/23 05:20 18 02/04/23 04:20 18 02/04/23 03:24 16 02/04/23 02:30 36.7 C 16 02/04/23 02:30 16 02/04/23 01:20 18 02/04/23 00:15 18 02/03/23 23:15 36.5 C 18 02/03/23 23:15 18 02/03/23 22:15 16 02/04/23 08:30 102 H 100 02/04/23 08:25 96 H 100 02/04/23 08:24 110 H 146/83 H 02/04/23 08:20 102 H 100 02/04/23 08:15 97 H 100 02/04/23 08:10 98 H 100 02/04/23 08:05 98 H 100 02/04/23 08:00 100 H 100 02/04/23 07:55 101 H 100 02/04/23 07:50 96 H 100 02/04/23 07:43 105 H 100 02/04/23 07:38 98 H 100 02/04/23 07:34 96 H 148/86 H 02/04/23 07:33 95 H 100 02/04/23 07:28 93 H 100 02/04/23 07:23 100 H 100 02/04/23 07:18 101 H 100 02/04/23 07:13 103 H 100 02/04/23 07:08 100 H 100 02/04/23 07:03 113 H 100 02/04/23 06:58 103 H 100 02/04/23 06:53 112 H 100 02/04/23 06:48 118 H 100 02/04/23 06:43 100 H 100 02/04/23 06:38 97 H 100 02/04/23 06:33 94 H 136/80 100 02/04/23 06:28 98 H 100 02/04/23 06:23 103 H 100 02/04/23 06:18 106 H 100 02/04/23 06:16 107 H 147/77 H 02/04/23 06:13 107 H 100 02/04/23 06:08 106 H 100 02/04/23 06:03 97 H 100 02/04/23 05:58 99 H 100 02/04/23 05:53 96 H 100 02/04/23 05:48 100 H 100 02/04/23 05:46 98 H 130/77 02/04/23 05:43 97 H 100 02/04/23 05:38 97 H 100 02/04/23 05:33 101 H 100 02/04/23 05:28 103 H 100 02/04/23 05:23 99 H 100 02/04/23 05:18 93 H 100 02/04/23 05:16 96 H 132/75 02/04/23 05:13 91 H 100 02/04/23 05:08 91 H 100 02/04/23 05:03 93 H 100 02/04/23 04:58 90 100 02/04/23 04:53 89 100 02/04/23 04:48 95 H 100 02/04/23 04:47 107 H 124/95 02/04/23 04:43 98 H 100 02/04/23 04:38 98 H 100 02/04/23 04:33 100 H 100 02/04/23 04:28 95 H 100 02/04/23 04:23 93 H 100 02/04/23 04:18 93 H 100 02/04/23 04:16 95 H 132/71 02/04/23 04:13 98 H 100 02/04/23 04:08 97 H 100 02/04/23 04:03 97 H 100 02/04/23 03:58 98 H 100 02/04/23 03:53 96 H 100 02/04/23 03:48 96 H 100 02/04/23 03:46 101 H 130/68 02/04/23 03:43 93 H 100 02/04/23 03:38 96 H 100 02/04/23 03:33 100 H 100 02/04/23 03:28 101 H 100 02/04/23 03:23 100 H 100 02/04/23 03:18 102 H 100 02/04/23 03:16 100 H 133/76 02/04/23 03:13 99 H 100 02/04/23 03:08 98 H 100 02/04/23 03:03 98 H 100 02/04/23 02:58 98 H 100 02/04/23 02:53 98 H 100 02/04/23 02:48 98 H 100 02/04/23 02:46 96 H 131/70 02/04/23 02:43 99 H 100 02/04/23 02:38 97 H 100 02/04/23 02:33 98 H 100 02/04/23 02:28 105 H 100 02/04/23 02:23 103 H 100 02/04/23 02:18 107 H 100 02/04/23 02:16 100 H 145/75 H 02/04/23 02:13 106 H 99 02/04/23 02:08 111 H 100 02/04/23 02:03 102 H 100 02/04/23 01:58 108 H 100 02/04/23 01:53 102 H 100 02/04/23 01:48 100 H 100 02/04/23 01:46 102 H 134/76 02/04/23 01:43 101 H 100 02/04/23 01:38 116 H 100 02/04/23 01:33 107 H 100 02/04/23 01:28 106 H 100 02/04/23 01:23 106 H 100 02/04/23 01:18 106 H 100 02/04/23 01:16 105 H 127/65 02/04/23 01:13 107 H 100 02/04/23 01:08 108 H 100 02/04/23 01:03 103 H 100 02/04/23 00:58 104 H 100 02/04/23 00:53 102 H 100 02/04/23 00:48 105 H 100 02/04/23 00:46 99 H 124/72 02/04/23 00:43 102 H 100 02/04/23 00:38 101 H 100 02/04/23 00:33 100 H 100 02/04/23 00:28 97 H 100 02/04/23 00:23 99 H 100 02/04/23 00:18 101 H 100 02/04/23 00:16 103 H 116/62 02/04/23 00:13 108 H 100 02/04/23 00:08 101 H 100 06/13/23 00:03 102 H 100 02/03/23 23:58 99 H 100 02/03/23 23:53 114 H 100 02/03/23 23:48 111 H 100 02/03/23 23:46 111 H 112/64 02/03/23 23:43 100 H 100 02/03/23 23:38 101 H 100 02/03/23 23:33 98 H 100 02/03/23 23:28 95 H 100 02/03/23 23:23 98 H 100 02/03/23 23:18 105 H 100 02/03/23 23:17 112 H 124/68 02/03/23 23:13 105 H 100 02/03/23 23:08 104 H 100 02/03/23 23:03 105 H 100 02/03/23 22:58 106 H 100 02/03/23 22:53 112 H 100 02/03/23 22:48 102 H 100 02/03/23 22:46 100 H 120/64 02/03/23 22:43 100 H 100 02/03/23 22:38 102 H 100 02/03/23 22:33 114 H 100 02/03/23 22:28 106 H 100 02/03/23 22:23 105 H 100 02/03/23 22:18 102 H 100 02/03/23 22:16 114 H 140/71 02/03/23 22:13 106 H 100 02/03/23 22:08 107 H 100 02/03/23 22:05 111 H 135/77 02/03/23 22:03 105 H 100 02/03/23 21:58 107 H 100 02/03/23 21:53 105 H 100 02/03/23 21:50 102 H 125/67 02/03/23 21:48 105 H 100 02/03/23 21:43 105 H 100 02/03/23 21:38 106 H 100 02/03/23 21:35 105 H 124/64 02/03/23 21:33 106 H 100 02/03/23 21:28 105 H 100 02/03/23 21:23 105 H 100 02/03/23 21:20 106 H 121/64 02/03/23 21:18 106 H 100 02/03/23 21:13 107 H 100 02/03/23 21:08 106 H 100 06/12/23 21:05 105 H 119/65 02/03/23 21:03 104 H 100 02/03/23 20:58 107 H 100 02/03/23 20:53 106 H 100 02/03/23 20:50 100 H 116/65 02/03/23 20:48 102 H 100 02/03/23 20:43 101 H 100 02/03/23 20:38 108 H 100 02/03/23 20:35 111 H 119/71 PG Care Time/CCT Total # of Minutes Spent Total Time Spent with Patient: Total time spent is greater than 50% in coordination of care (as documented) at patient's floor/unit and/or counseling patient: Coding Level of Care Code None Diagnoses
[2023-02-04] MEDS: MAGNESIUM SULFATE / WTR 40 GM/1,000 ML BAG IV SCH (08:59)
[2023-02-04] MEDS ORDERED: NIFEdipine EXTENDED REL 30 MG TABCR PO SCH ×2 (09:00)
[2023-02-04] MEDS: SERTRALINE HCL 50 MG TABLET PO SCH (09:01)
[2023-02-04] MEDS: ACETAMINOPHEN 500 MG TAB PO PRN ×2 (09:21→19:51)
[2023-02-04] MEDS ORDERED: BENZOCAINE 20% AER SPR 82.5 GM CAN EXT PRN (19:32)
[2023-02-04] MEDS: DOCUSATE SODIUM 100 MG CAP PO SCH (20:31)
[2023-02-05] MEDS: NIFEdipine EXTENDED REL 30 MG TABCR PO SCH ×3 (00:02→20:32)
[2023-02-05] MEDS: IBUPROFEN 600 MG TAB PO PRN (04:08)
[2023-02-05] MEDS: ACETAMINOPHEN 500 MG TAB PO PRN (05:06)
[2023-02-05] MEDS: DOCUSATE SODIUM 100 MG CAP PO SCH ×2 (07:58→20:32)
[2023-02-05] MEDS: FERROUS SULFATE 325 MG TAB PO SCH (07:58)
[2023-02-05] MEDS: PRENATAL VITAMIN 1 TAB PO SCH (07:58)
--- NOTE | 2023-02-05 08:02 | Communication Note ---
Date of Service: February 05, 2023 I evaluated this patient for possible post dural puncture headache. Epidural was almost eight days ago. Pt completed a preeclampsia course of magnesium ye sterday. Pt is sitting in a dark room with her bed at 30 degrees. multiple pillows supporting her neck. Pt is wearing a neck support. Pt pain has been mostly in her neck. The headache seems to follow neck pain. Pt has photosensitivity, but no vision changes. She is not vomiting. lying flat, helps, but does not reliably relieve the pain. Pt is able to get out of bed with no increase in pain that is present. At this point, I do not think this is a post dural puncture headache. She is not displaying classic symptoms. She is at 8 days and did just finish a course of magnesium. An epidural blood patch is not a benign procedure and without a classic presentation, I would be hesitant to perform one. I would recommend conservative management at this point. I spoke to Dr Dejesus and we are able to perform blood patches as an outpatient through are [facility] clinic. I would consider a blood patch if the pain continued as she gets farther removed from her preeclampsia treatment.
--- NOTE | 2023-02-05 08:06 | Obstetrical Progress Note ---
Date of Service February 05, 2023 Assessment & Plan (1) Pre-eclampsia, severe: Plan: Amira is a 37-year-old readmitted for severe preeclampsia status post 24-hour magnesium course. Patient reports persistent neck pain and denies any distinct headache as of today. Patient was noted to have muscle stiffness around the neck. Discussed that the neck pain is likely musculoskeletal for muscle spasms. Placed order for Flexeril and tramadol as needed. Anesthesia evaluation completed and they do not feel that this is an epidural related headache. Blood pressures in mostly normal range with occasional mild range elevation on Procardia XL 60 mg twice daily. Patient has been diuresing well and preeclampsia labs have been normal. Discussed continued monitoring until least 24 hours post magnesium. Discussed potential discharge if stable at that point. Patient agreeable to plan (2) hypertension: (3) eclampsia: (4) Headache: Admission and Anticipated Discharge Date Admission Date: February 03, 2023 Subjective No acute events overnight. Patient is still reporting intermittent headaches/neck pain. Patient reports that the pain is mostly in her neck at present and does note some relief with a heating pad. I asked anesthesia to come by and evaluate for epidural headache and they do not feel the headache is likely an epidural headache. This that if headache persist tomorrow they would offer her a blood patch which can be done outpatient. Patient had a CTA of the head in the ED which was unremarkable. Blood pressure have mostly been in normal range with occasional mild range noted. Patient is currently on Procardia XL 60 mg twice daily which she is tolerating well. Denies any other preeclampsia symptoms. Patient has been diuresing well. Denies any bleeding concerns Results & Data Vital Signs (Past 12 Hours) Vital Signs Temp Pulse Resp BP 02/05/23 04:05 36.9 C 16 02/04/23 23:05 36.7 C 18 02/05/23 07:21 110 H 150/89 H 02/05/23 04:00 103 H 132/82 02/05/23 00:00 102 H 127/75 02/04/23 23:06 100 H 151/80 H PG Care Time/CCT Total # of Minutes Spent Total Time Spent with Patient: Total time spent is greater than 50% in coordination of care (as documented) at patient's floor/unit and/or counseling patient: Coding Level of Care Code 61317 OP VST EST MOD 30-39 MIN Diagnoses Pre-eclampsia, severe O14.10 hypertension O16.5 eclampsia O15.2 Headache R51.9
[2023-02-05] MEDS ORDERED: traMADol HCL 50 MG TABLET PO PRN (08:40)
[2023-02-05] MEDS: SERTRALINE HCL 50 MG TABLET PO SCH (08:42)
[2023-02-05] MEDS ORDERED: LABETALOL HCL IV 5 MG/ML 20ML IV STA (11:26)
--- NOTE | 2023-02-05 11:37 | Labor Progress Brief Note ---
Date of Service February 05, 2023 Subjective 37yo readmitted with preeclampsia (possible eclamptic seizure vs syncope, per signout from those present during events it remains unclear which). Events of this admission include headache, severe level BP, head CT negative for acute process, and repeat magnesium therapy x24 hours ending yesterday evening. Headache has been addressed with anesthesia consult (blood patch offered but not felt to be likely to solve the issue, suspicion of spinal ERAZO being low) and tramadol (which resulted in improvement of pain from 5/10 to 0/10). BP improved while on magnesium but is now climbing again despite administration of increased dose(s) of Nifedipine XL overnight. Patient is currently on max daily dose of 120mg, divided 60am and 60pm, last dose being at 8am today. BP is now increased to severe range again. Currently patient is listening to music on headphones and in no distress. Patient and mother are worried, reasonably, about her condition. They politely note concerns about the adequacy of her BP management and whether a new drug is being considered; they have heard discussion from various members of the care team of the course of her stay about possibly trying labetalol but do not think she has yet gotten any since being , and they are curious about this option. Assessment & Plan (1) eclampsia: Plan: Management of HTN has thus far been completed with maximum dose of Procardia XL. Discussed theory behind maxing out on one agent before introducing a second, as a general principle. At this point I would note Jaswant payne is on max dose of Procardia, so introducing labetalol as the second agent would be the next step I recommend. They are agreeable to an IV dose of 20mg labetalol now to attempt immediate blood pressure improvement. We will then add labetalol 200mg PO BID starting with her evening dose of antihypertensive. Though discharge for 5pm today was the plan, they are also agreeable to Amira remaining in-house for a bit longer so we can ensure her safety and minimize the chances of a future readmission. Pulse is noted to have been 90-120 throughout her course. This may be due to anemia, and Hgb is noted to be stable, but will continue close observation. It is possible labetalol will improve the pulse but need to ensure this is not at the cost of compensatory physiologic measures that are important to this patient's tolerance of anemia. Admission and Anticipated Discharge Date Admission Date: February 03, 2023 Physical Exam Physical Exam: Patient ambulatory to restroom without assistance, and returned from restroom to bed while I was present and conversing with her mother, who is holding the . Patient wearing headphones and listening to music, but also participatory in our discussion. Appears in NAD. BP reviewed as below. Results & Data Vital Signs (Past 12 Hours) Vital Signs Temp Pulse Resp BP 02/05/23 07:21 98.2 F 20 02/05/23 07:21 20 02/05/23 04:05 98.4 F 16 02/05/23 11:14 121 H 174/98 H 02/05/23 07:21 110 H 150/89 H 02/05/23 04:00 103 H 132/82 02/05/23 00:00 102 H 127/75 Coding Level of Care Code None Diagnoses eclampsia O15.2
[2023-02-05] MEDS ORDERED: LABETALOL HCL 200 MG TAB PO STA (12:35)
--- NOTE | 2023-02-05 12:49 | Obstetrical Progress Note ---
Date of Service February 05, 2023 Assessment & Plan Admission and Anticipated Discharge Date Admission Date: February 03, 2023 Subjective Summary of recent events: I was called to see the patient after her mother noticed some changes in her behavior and her movements. She had become somewhat oppositional, inappropriate, and was refusing to interact with family and staff preferring to sing aloud to loud and aggressive music choices. She has been seen by her mother to write lots of notes of scripture, which is outside her norm, and to be hyperfocused on this and similar tasks that are not necessarily deserving of such focus. The patient was also making oddly jerky movements and being physically hyperactive, "dancing" to her music, but with movements that appeared artificially snappy and very different from what was otherwise normal. Mom shared that Amira has a history of several admissions to the hospital for bipolar disorder with acute manic episodes. The change to oppositional verbal interaction, jerky and excessive physical movements, and hyper focus on inappropriate tasks, all signal to mom that Amira is likely entering a manic episode once again. She is concerned and expects that without intervention, Amira may be headed back to a severe mirta such as she has had previously. Any early intervention that may head this off would be welcome. I came to see Amira along with Daisy Cifuentes RN. She was found to be wearing her headphones and singing aloud to music, was very resistant to conversation and was snappy / grumpy when she did respond - which is a notable difference fro m just my prior visit. She was also dancing with some jerky, choppy movements. She denied headache but was not cooperative with extended questioning. She was tapping her left foot along with the music but there were "extra taps" that appeared involuntary. Exam at that time revealed patellar reflexes with several beats of clonus, easy to elicit without even using a reflex hammer. There was no RUQ pain or palpable liver edge. IV labetalol 20mg was given, and within ten minutes of administration, BP improved from 181/92 to 156/92. Her reflexes resolved to 2+ without clonus. Her foot tapping to the music became smooth and lost the "extra beats" that had previously been seen. I was able to have a lengthy conversation with patient's mom about her medical, social, and psychiatric history. Mom is medically knowledgeable and was able to provide input and insight. While we need to continue to address her HTN and ensure she has a stable outpatient regimen before discharge, as well as addressing acute HTN with possible hyperreflexia and neural irritability, there are other issues deserving of attention. The change in behavior and movement could be due to neural irritability but could also, easily, represent the onset of an acute manic episode. Behavior and movements like these have been observed by mom just prior to each of the patient's previous manic breaks, for which she needed to be hospitalized for her safety, and for which she has been medicated prior to . While she came off psych meds early in and initially seemed to do well, it is noted than an SSRI was started (appropriately) to prevent depression, and that it remains the only psych med she is taking. Mom and I both wonder if SSRI as monotherapy is currently the most appropriate treatment for the patient. Answering this is well beyond my abilities and I offered a psych consult which was accepted. Case management may also be able to contribute, as there is concern for whether the patient will be able to maintain a stable social situation and/or care for her without some additional resources and psych medication regimen. They, too, will be consulted. Mom mentions a history of drug use / abuse that goes a bit beyond what had previously been revealed. Although it is not believed by mom that the patient is currently using meth, this was an issue in the past, and avoiding any intervention that could increase the risk of Alisynn going back to drug abuse would be preferable. We discussed that Tramadol did give excellent relief of neck pain, but perhaps we could/would get equally adequate effect from flexeril without the use of narcotic. I therefore discontinued Tramadol and we will try Flexeril next time the patient notes neck pain. Over the next half hour, while jerky movements and oppositional behavior did not return, BP sreedhar back to the 160/90 range, then returned to 150s/80s. A dose of 200mg PO labetalol was ordered for giving now, in addition to beginning to be given BID with the 9pm dose tonight. We are not aiming for completely normal BP in this patient who is accommodated to HTN but do not want persistent severe range pressures. Patient was counseled on this change and agreeable to the dose being given now. She was also counseled on the fact that I have consulted psychiatry, with discussion focused on preventing depression and psychiatric disease, given her risk factor of readmission and significant maternal illness. She was agreeable to seeing them and prepared for their arrival. While it's unclear right now if her changed affect and movement were related to onset of a manic episode (she is certainly at risk) or related to hyperreflexia and irritability due to her eclampsia, given mom's assessment of things I would continue to prefer that psychiatry evaluate her urgently and help us address any mental health issues before they develop further. Results & Data Vital Signs (Past 12 Hours) Vital Signs Temp Pulse Resp BP 02/05/23 11:14 98.2 F 18 02/05/23 07:21 98.2 F 20 02/05/23 07:21 20 02/05/23 04:05 98.4 F 16 02/05/23 12:35 94 H 156/88 H 02/05/23 12:30 90 160/90 H 02/05/23 12:25 93 H 166/95 H 02/05/23 12:20 95 H 153/92 H 02/05/23 12:15 93 H 160/95 H 02/05/23 12:10 98 H 148/94 H 02/05/23 12:05 93 H 158/95 H 02/05/23 12:00 95 H 151/92 H 02/05/23 11:55 96 H 156/91 H 02/05/23 11:54 96 H 156/92 H 02/05/23 11:51 95 H 165/94 H 02/05/23 11:38 131 H 181/92 H 02/05/23 11:14 121 H 174/98 H 02/05/23 07:21 110 H 150/89 H 02/05/23 04:00 103 H 132/82 PG Care Time/CCT Total # of Minutes Spent Total Time Spent with Patient: Total time spent is greater than 50% in coordination of care (as documented) at patient's floor/unit and/or counseling patient: Coding Level of Care Code None Diagnoses
[2023-02-05] MEDS: CYCLOBENZAPRINE HCL 10 MG TAB PO SCH ×2 (14:32→20:33)
--- NOTE | 2023-02-05 14:45 | Psychiatric Consultation ---
Date of Consultation February 05, 2023 Impression / Recommendations Impression 37 yo woman with history of bipolar affective disorder, substance use disorder, PTSD, anxiety, pre-eclampsia, HTN now s/p delivery of a baby girl on 01/30/2023 with concern for possible emerging episode of hypomania/mirta. Diagnostically no current signs on psychiatric evaluation for acute mirta and current diagnostic picture somewhat complicated by her recent syncopal vs seizure event and recent HTN; however, symptoms earlier in the day described by OB provider and patient's mother are certainly concerning for possibly emerging episode of hypomania. Given that she has been on sertraline monotherapy and is now in the period when she is likely to sleep less she is at significantly elevated risk for developing hypomania or mirta and addition of a mood stabilizer at this time is the recommendation. Discussed medication treatment options in detail. Discussed risks, benefits and alternatives. Reviewed with Amira and her mother medication options and all of us favor abilify given that she did well on this in the past. I also advised that we get her established with an outpatient psychiatrist which she and her mother are agreeable to so that she can be closely followed during the post-pa rtum period and medications can be adjusted as needed. Patient would like to start and consented to abilify for mood stabilization for BPAD and depression augmentation. Reviewed side effects including but not limited to: potential for lowered seizure threshold, movement (TD, NMS), cardiac (QTc prolongation), and metabolic (stroke, insulin resistance) and necessity for fasting lipid and glucose labwork in outpatient setting at regular intervals and no observable involuntary movements on AIMS with score of 0. She is not breast feeding and plans to exclusively use formula. Acute risk of self-harm is low given denial of current SI, no history of prior attempts, future-oriented, has outpatient therapy, good support from her mother, agreeable to psychiatry referral and knowledge of crisis resources and agrees to come to ED or reach out for support should SI develop in the future. (1) Bipolar 1 disorder: Plan -Start abilify 5mg daily -Can continue with sertraline 50mg daily -Psych liason to work on referral for outpatient psychiatry -Attempt to get as much support as possible in post- period particularly overnight to protect normal sleep/wake cycle. If feasible aim to get at least 6 hours of sleep in a row per night to reduce likelihood of emergence of episode of mirta and to help prevent worsening of depression -Discussed recommendations with Dr. Meadows Psych History Identifying Data 37 yo woman with a history of bipolar disorder, substance use disorders, PTSD, anxiety, now s/p recent delivery of a baby girl on 01/30/2023 with subsequent possible seizure and diagnosed with pre-eclampsia, HTN, readmitted for ongoing elevated blood pressure. Psychiatry consulted due to concerns for possible development of manic episode. Chief Complaint "Yeah I guess I'm depressed". History of Present Illness Amira was seen at bedside with psych liason RN as well as her mother and baby girl in the room. Amira reports history of prior episodes of mirta requiring inpatient psychiatric hospitalization as well as history of anxiety, depressive episodes, PTSD and past substance use for which she has previously sought residential treatment. She had been off all psychiatric medications since May up until about 3 weeks ago when she was started on sertraline 50mg by her OB provider for worsening depression. Today she reports ongoing depression, about the same over the last three weeks, but denies any SI. Discussed concern from family observations and earlier behaviors raising concern for possible emerging symptoms of mirta or hypomania. She is unsure if this could be going on. Since she has not been home it's been hard to determine her sleep patterns, especially in light of just having had her first child, but she feels like she's been able to fall back asleep if she wakes up. She's been formula feeding her daughter and her mother has been helping. She denies any current symptoms of psychosis but has experienced this in the past with episodes of mirta. Agrees that she might be experiencing more psychomotor agitation but also thinks this could be due to being stuck in the hospital. Earlier in the day was engaged in singing loudly, more irritable at times, was more goal oriented in writing notes of scripture, and dancing which have all occurred during previous episodes of mirta. Past Psychiatric History Outpatient Services: [facility] Previous Psych Admissions: multiple-July 2021 at [facility] for mirta, January 2022 at [facility] for mirta, April 2022 at [facility] for mirta Do You Have Access To A Gun?: No History of Previous Suicide Attempt: No Past Medication Trials: Seroquel, buspar, Abilify 5mg qd (was most stable for the longest time while on this) Allergies Allergy/AdvReac Type Severity Reaction Status Date / Time No Known Allergies Allergy Verified 02/03/23 15:05 Home Medications Medication Instructions Recorded Confirmed Type medical marijuana Card 1 dose inhalation DIRECTED PRN 09/10/22 02/03/23 History NEEDED prenat.vits,concha,dsa-bjjx-ftndd 1 tab PO DAILY #90 tabs 09/13/22 02/03/23 Rx ferrous gluconate 324 mg (38 mg 324 mg PO BID 11/07/22 02/03/23 History iron) tablet sertraline 50 mg tablet 50 mg PO DAILY #30 tabs 12/26/22 02/03/23 Rx nifedipine 30 mg tablet,extended 60 mg PO Q12 #60 tabs 02/02/23 02/03/23 Rx release 24 hr (Procardia XL) Patient History Medical History Depression Eclampsia Encounter for pre-operative examination Preeclampsia Supervision of elderly primigravida Vaginal delivery Family History Father Diabetes Mother Hypertension Grandmother Lung cancer Aunt Breast cancer Social History Smoking Status: Current every day smoker Cigarettes Per Day: 5; Hx Substance Use: Yes (alcohol) Substance Use Type Other:: not currently using Preferred Language: Nauruan Communication Ability: Effective Veterinary Technology Instructor Required: No Beliefs That Will Affect Care: None marital status: Single marital status details: Maribel [phone] Current Living Situation: Family Current Living Situation Comment: lives with mom at this time current occupational status: unemployed Feels Safe at Home: Yes Assistive Devices: None Physical Exam Psychiatric: Orientation: alert and oriented x 3 Apperance: appropriately dressed and appropriately groomed Eye Contact: + fair eye contact Motor Behavior: no abnormal motor movements Speech: normal rate/rhythm/volume of speech Affect: + constricted affect Mood: + depressed mood Thought Process: goal directed thought process and + concrete thought process Thought Content: reality based without delusions Suicidal Thoughts: denies suicidal thoughts Homicidal Thoughts: denies homicidal thoughts Hallucinations: no auditory hallucinations, no visual hallucinations and no tactile hallucinations Cognition: recent memory grossly intact, remote memory grossly intact, attention grossly intact and language grossly intact Insight: + limited insight Judgment: + fair judgement Vital Signs (Past 24 Hours): Last Vital Signs Temp 36.8 C 02/05/23 11:14 Pulse 86 02/05/23 14:41 Resp 18 02/05/23 11:14 BP 122/83 02/05/23 14:41 Pulse Ox 100 02/04/23 17:15 O2 Del Method Room Air 02/03/23 19:10 Review of Systems All systems reviewed & are unremarkable except as noted in HPI & below Results & Data (PSY) Laboratory Results Na+ 135 Diagnostic Findings no recent EKG Medications Administered Acetaminophen (Acetaminophen 500 Mg Tab) 1,000 mg PO Q8H PRN PRN Reason: Headache Stop: 03/06/23 09:13 Last Admin: 02/05/23 05:06 Dose: 1,000 mg Documented By: Admin: 02/04/23 19:51 Dose: 1,000 mg Documented By: Admin: 02/04/23 09:21 Dose: 1,000 mg Documented By: CONCHA Benzocaine (Benzocaine 20% Aer Spr 82.5 Gm Can) 1 appln EXT PRN PRN PRN Reason: Perineal Discomfort Stop: 03/06/23 19:31 Last Admin: 02/04/23 19:46 Dose: 82.5 appln Documented By: DIOR Cyclobenzaprine HCl (Cyclobenzaprine Hcl 10 Mg Tab) 10 mg PO BID [facility] Stop: 03/07/23 08:59 Last Admin: 02/05/23 14:32 Dose: Not Given Documented By: MELODY Docusate Sodium (Docusate Sodium 100 Mg Cap) 100 mg PO DAILY@ [facility] Stop: 03/06/23 20:59 Last Admin: 02/05/23 07:58 Dose: 100 mg Documented By: Admin: 02/04/23 20:31 Dose: 100 mg Documented By: DIOR Ferrous Sulfate (Ferrous Sulfate 325 Mg Tab) 325 mg PO DAILY@ [facility] Stop: 03/07/23 07:59 Last Admin: 02/05/23 07:58 Dose: 325 mg Documented By: MELODY Magnesium Sulfate (Magnesium Sulfate / Wtr) 40 gm in 1,000 mls @ 50 mls/hr IV .Q20H [facility] Stop: 03/05/23 13:59 Last Infusion: 02/04/23 16:10 Dose: 0 mls/hr Documented By: CONCHA Co-signed By: CFP Admin: 02/04/23 08:59 Dose: 50 mls/hr Documented By: CONCHA Co-signed By: DLMargot Infusion: 02/04/23 08:59 Dose: 50 mls/hr Documented By: CONCHA Co-signed By: DLJ Infusion: 02/04/23 07:08 Dose: 50 mls/hr Documented By: ZACHARY Co-signed By: CONCHA Infusion: 02/04/23 04:24 Dose: 50 mls/hr Documented By: BAM Co-signed By: SRF Infusion: 02/04/23 02:33 Dose: 50 mls/hr Documented By: ZACHARY Co-signed By: DIOR Infusion: 02/03/23 21:10 Dose: 50 mls/hr Documented By: ZACHARY Co-signed By: SRF Infusion: 02/03/23 20:05 Dose: 50 mls/hr Documented By: ZACHARY Co-signed By: SRF Infusion: 02/03/23 19:10 Dose: 50 mls/hr Documented By: ZACHARY Co-signed By: SRF Infusion: 02/03/23 16:50 Dose: 50 mls/hr Documented By: IKE Co-signed By: RB Admin: 02/03/23 16:04 Dose: 50 mls/hr Documented By: VANDANA Co-signed By: WALLACE Lactated Ringer's (Lr) 1,000 mls @ 75 mls/hr IV .[id number] YANELIS Stop: 03/06/23 06:14 Last Infusion: 02/04/23 16:10 Dose: 0 mls/hr Documented By: Admin: 02/04/23 06:15 Dose: 75 mls/hr Documented By: ZACHARY Ibuprofen (Ibuprofen 600 Mg Tab) 600 mg PO Q4H PRN PRN Reason: Pain/ERAZO/Cramping/Fever Stop: 03/06/23 19:31 Last Admin: 02/05/23 04:08 Dose: 600 mg Documented By: DIOR Nifedipine (Nifedipine Extended Rel 30 Mg Tabcr) 60 mg PO Q12 YANELIS Stop: 03/06/23 23:29 Last Admin: 02/05/23 08:42 Dose: 60 mg Documented By: Admin: 02/05/23 00:02 Dose: 60 mg Documented By: DIOR Prenat Multivit/[place]/Iron/Folic Ac ( Vitamin 1 Tab) 1 tab PO DAILY@08 YANELIS Stop: 03/07/23 07:59 Last Admin: 02/05/23 07:58 Dose: 1 tab Documented By: MELODY Sertraline HCl (Sertraline Hcl 50 Mg Tablet) 50 mg PO DAILY [facility] Stop: 03/06/23 08:59 Last Admin: 02/05/23 08:42 Dose: 50 mg Documented By: Admin: 02/04/23 09:01 Dose: 50 mg Documented By: CONCHA Coding Level of Care Code 24991 IN/OBS CONSULT LVL 3,45M Diagnoses Bipolar 1 disorder F31.9 Time Spent (min) 50
[2023-02-05] MEDS: ARIPiprazole 5 MG TAB PO SCH (15:14)
[2023-02-05] MEDS: LABETALOL HCL 200 MG TAB PO SCH (20:33)
[2023-02-06] MEDS: IBUPROFEN 600 MG TAB PO PRN (04:35)
[2023-02-06] MEDS: ACETAMINOPHEN 500 MG TAB PO PRN (04:35)
--- NOTE | 2023-02-06 07:17 | Obstetrical Progress Note ---
Date of Service February 06, 2023 Assessment & Plan (1) eclampsia: Patient has had normal BP for the last 15 hours, without symptoms of eclampsia, until one mild HTN pressure this morning during our conversation. Seems that her current med regimen is likely appropriate for her to go home with. Discuss ed observing BP today until after her mom returns from an outside appointment, and if all remains reassuring, can D/C with the current regimen. Outpatient psychiatry plan is currently [facility] but appointment date and time not yet confirmed. OB has been asked by psychiatry to provide Rx for abilify x30 days on discharge. (2) Bipolar 1 disorder: See above / psych note. Abilify added to Zoloft. Prioritizing >6 hours sleep per night discussed with patient's mom who would be the verification clerk of this by helping with child care attendant school; she is willing and able to do so. Subjective This morning patient is more relaxed than yesterday in her speech and movements. She denies ERAZO, RUQ pain, vision changes or edema. Says "I feel great" and "I want to go home." Mom in the room during this morning's visit, and exited the room to speak with MD after visit as well. Both patient and her mom who will be supporting her at home feel she is ready for discharge today. Physical Exam NAD, sitting semi-shafer, looking at internet on her phone but not wearing headphones. No resp distress Normal pulse, no pedal edema Abd soft and postgravid. Thin habitus. Extremities with 2+ DTRs and no clonus. Results & Data Vital Signs (Past 12 Hours) Vital Signs Temp Pulse Resp BP 02/06/23 04:30 98.4 F 20 02/06/23 00:23 98.1 F 18 02/05/23 20:30 98.4 F 125 H 18 137/79 02/05/23 20:30 18 02/06/23 07:02 103 H 146/86 H 02/06/23 04:32 112 H 131/80 02/06/23 00:21 97 H 130/80 02/05/23 20:31 125 H 137/79
[2023-02-06] MEDS: LABETALOL HCL 200 MG TAB PO SCH (08:44)
[2023-02-06] MEDS: DOCUSATE SODIUM 100 MG CAP PO SCH (08:45)
[2023-02-06] MEDS: SERTRALINE HCL 50 MG TABLET PO SCH (08:45)
[2023-02-06] MEDS: NIFEdipine EXTENDED REL 30 MG TABCR PO SCH (08:45)
[2023-02-06] MEDS: FERROUS SULFATE 325 MG TAB PO SCH (08:46)
[2023-02-06] MEDS: ARIPiprazole 5 MG TAB PO SCH (08:46)
[2023-02-06] MEDS: PRENATAL VITAMIN 1 TAB PO SCH (08:46)
[2023-02-06] MEDS: CYCLOBENZAPRINE HCL 10 MG TAB PO SCH (08:47)
--- NOTE | 2023-02-07 08:28 | Discharge Summary ---
Date of Service February 07, 2023 Admission HPI Per Admitting Provider 37yo s/p and eclamptic seizure on 01/30/23, presented to office today with headache and elevated BPs at home. BP at office was 178/110 and she was directed from office to ER for further eval. ER management included preeclampsia lab workup, CT head, and headache cocktail (compazine, benadryl). She received 10mg hydralazine, followed by 10mg labetalol for elevated BPs. She was started on magnesium - 6g loading dose, followed by 2g/hr infusion. She describes the headache as severe, in the back of her head/neck, and NOT associated with vision changes. Has not really had an appetite for the past day. No nausea/vomiting. Has not felt desire to smoke cigarettes or marijuana in the past day, either. No abdominal pain or RUQ pain. No LE swelling. Minimal lochia. Discharge Data Consultations 02/03/23 15:57 ED Decision to Admit Stat 02/05/23 07:10 Consult Anesthesiology Routine 02/05/23 12:36 Consult Psychiatry Stat Hospital Course (1) eclampsia: Patient has had normal BP for the last 15 hours, without symptoms of eclampsia, until one mild HTN pressure this morning during our conversation. Seems that her current med regimen is likely appropriate for her to go home with. Discussed observing BP today until after her mom returns from an outside appointment, and if all remains reassuring, can D/C with the current regimen. Outpatient psychiatry plan is currently [facility] but appointment date and time not yet confirmed. OB has been asked by psychiatry to provide Rx for abilify x30 days on discharge. (2) Bipolar 1 disorder: See above / psych note. Abilify added to Zoloft. Prioritizing >6 hours sleep per night discussed with patient's mom who would be the theology professor of this by helping with children's program coordinator; she is willing and able to do so. Coding Level of Care Code None Diagnoses eclampsia O15.2 Bipolar 1 disorder F31.9
== END 2023-02-06 13:00 | disposition home or self-care (01) | DRG 776 ==
LOC: ED 12:43 → 4S1 16:15

== ENCOUNTER 2023-04-23 20:29 | Inpatient (IN) ==
[2023-04-23 22:31] LABS: Basophils # (auto) 0.01 K/uL (0.00-0.20); Basophils % (auto) 0.2 %; Hematocrit (blood only) 31.9 % (37.0-47.0); Hemoglobin 10.5 g/dl (12.0-16.0); Immature Granulocytes # (auto) 0.02 K/uL (0.01-0.20); Immature Granulocytes % (auto) 0.3 %; Lymphocytes # (auto) 0.84 K/uL (1.20-3.40); Lymphocytes % (auto) 14.5 %; Mean Corpuscular Hemoglobin 22.9 pg (25.0-34.0); Mean Corpuscular Hgb Conc 32.9 g/dL (32.0-36.0); Mean Corpuscular Volume 69.5 fL (80.0-100.0); Monocytes # (auto) 0.35 K/uL (0.11-0.59); Monocytes % (auto) 6.1 %; Neutrophils # (auto) 4.56 K/uL (1.40-6.50); Neutrophils % (auto) 78.9 %; RDW Standard Deviation 34.2 fL (36.4-46.3); Red Blood Count 4.59 M/uL (4.20-5.40); White Blood Count 5.78 K/ul (4.8-10.8)
[2023-04-23 22:38] LABS: Appearance Urine Clear (Clear); Bilirubin Urine Negative (Negative); Blood Urine Negative (Negative); Color Urine Yellow; Glucose Urine UA Negative (Negative); Ketones Urine Negative (Negative); Leukocyte Esterase Urine Negative (Negative); Nitrite Urine Negative (Negative); Protein Urine Negative (Negative); Specific Gravity Urine 1.002 (1.000-1.030); Urobilinogen Urine Negative (Negative); pH Urine 6.5 (4.5-7.5)
[2023-04-23 22:38] LABS: Acetaminophen < 3 ug/ml (10-30); Salicylate < 3.0 mg/dl (3.0-30)
[2023-04-23 22:43] LABS: Mean Platelet Volume 10.4 fL (9.4-12.4); Platelet Count 255 K/uL (130-400)
[2023-04-23 22:45] LABS: Alanine Aminotransferase 13 U/L (7-52); Albumin Globulin Ratio 1.5 (0.9-2); Albumin Level 4.3 gm/dl (3.4-5.0); Alkaline Phosphatase 62 U/L (34-104); Anion Gap 6 (3-11); Aspartate Aminotransferase 18 U/L (13-39); BUN Creatinine Ratio 9.1 (10-20); Bilirubin,Total 0.3 mg/dl (0.2-1.0); Blood Urea Nitrogen 7 mg/dl (6-23); Calcium 9.1 mg/dl (8.6-10.3); Carbon Dioxide 23 mmol/L (21-32); Chloride 105 mmol/L (98-107); Est GFR (African American) 115.9 ml/min; Globulin 2.8 gm/dl (2.5-4.0); Glucose 127 mg/dl (70-99(Fasting)); Potassium 3.1 mmol/L (3.5-5.1); Sodium 134 mmol/L (136-145); Total Protein 7.1 gm/dl (6.0-8.3)
[2023-04-23 22:53] LABS: Anisocytosis Present; Poikilocytosis Present
[2023-04-23 23:02] LABS: Amphetamines+Metham, Urine Neg (Neg); Barbiturates, Urine Neg (Neg); Benzodiazepine, Urine Neg (Neg); Cocaine, Urine Neg (Neg); MDMA (Ecstacy), Urine Neg (Neg); Methadone, Urine Neg (Neg); Opiate, Urine Neg (Neg); Phencyclidine, Urine Neg (Neg)
[2023-04-24] MEDS ORDERED: ACETAMINOPHEN 325 MG TAB PO PRN (03:20)
[2023-04-24] MEDS ORDERED: SODIUM CHLORIDE 0.65% NA SOLN 45 ML (OCEAN) PRN (03:20)
[2023-04-24] MEDS ORDERED: BISMUTH SUBSALICYLATE LIQD 236 ML PO PRN (03:20)
[2023-04-24] MEDS ORDERED: hydrOXYzine HCl 25 MG TAB PO PRN (03:20)
[2023-04-24] MEDS ORDERED: MAGNESIUM HYDROXIDE SUSP 30 ML UDC PO PRN (03:20)
[2023-04-24] MEDS ORDERED: ALUMINUM/MAGNESIUM SUSP 30 ML UDC PO PRN (03:20)
[2023-04-24] MEDS: hydrOXYzine HCl 25 MG TAB PO PRN (03:31)
--- NOTE | 2023-04-24 08:08 | Emergency Department Note ---
Impression & Plan Suicidal ideation Admit to [facility] ED Provider Note NAME: DEANNE TREJO AGE: 37 SEX: F ARRIVES VIA: Walk-In INFORMANT: Patient ED PROVIDER(S): Marie Bocanegra DO CHIEF COMPLAINT: Suicidal ideation PLAN: Disposition: Admit to [facility]. Condition: Stable MEDICAL DECISION MAKING: This is a 37-year-old female patient with a history of depression and PTSD who presents to the emergency department with her mother for thoughts of suicide and acute psychosis. In route to the emergency department, patient opened the door of a moving vehicle. On my evaluation of the patient, she seems delusional, depressed and suffering from an acute thought disorder. The patient was medically cleared and had no significant lab abnormalities other than mild hypokalemia. This can be addressed with diet. The patient was evaluated by staff from [facility]. She is willing to admit herself voluntarily for inpatient psychiatric care. They have accepted her to their unit. Triage Nursing notes reviewed and agree with them. Vital Signs: reviewed and remarkable for mild hypertension Differential diagnosis: Mood disorder, thought disorder, suicide attempt, acute psychosis Diagnostics interpreted by me: Laboratory studies: See below HPI: 37/F arrives for evaluation of suicidal ideation. Patient has been voicing thoughts of suicide and delusional thoughts as well. Mother was transporting the patient here to the hospital for evaluation when she opened the door of a moving car. PAST MEDICAL HISTORY:See Below PAST SURGICAL HISTORY:See Below FAMILY HISTORY:See Below SOCIAL HISTORY:See Below HOME MEDICATIONS:See list ALLERGIES:None VITALS:See Below PHYSICAL EXAMINATION: HEENT: Head - normocephalic and atraumatic. Pupils are equal, round, and reactive to light. Extraocular eye muscles are intact, and sclera are anicteric. Nose - moist nasal mucosa without discharge. Mouth - moist buccal mucosa. Oropharynx is nonerythematous and there is no tonsillar exudate or edema noted. Neck: Supple; no cervical lymphadenopathy noted Heart: Regular rate and rhythm. There is a normal S1 and S2 with no murmurs, clicks, or gallops appreciated. Lungs: Clear to auscultation bilaterally with no wheezes, rales, or rhonchi. Abdomen: Soft, completely nontender, nondistended, with good bowel sounds. There are no palpable pulsatile masses or hepatosplenomegaly. There is no guarding, rigidity, or rebound noted. Extremities: No evidence of cyanosis, clubbing, or edema. There are easily palpable peripheral pulses. Skin: warm and dry with good turgor and no rashes. Psych: Patient has a normal affect. She does seem somewhat paranoid and delusional at times. She admits to suicidal thoughts. ED COURSE: The patient was evaluated in room A-7. A complete history and physical was performed. Laboratory studies were drawn as above. A 302 was reviewed and signed. Staff from [facility] evaluated the patient and have excepted her to their unit. Marie Bocanegra DO Past Med/Surg History Medical History (Updated 04/24/23 @ 12:12 by Je Cade MD) Bipolar I disorder, most recent episode manic, severe with psychotic features Depression Eclampsia Hypertension, condition or complication Pre-eclampsia, severe Preeclampsia Supervision of elderly primigravida Vaginal delivery Family History Father Diabetes Mother Hypertension Grandmother Lung cancer Aunt Breast cancer Social History Smoking Status: Current every day smoker Cigarettes Per Day: 5; Hx Substance Use: Yes (alcohol) Substance Use Type Other:: not currently using Preferred Language: Panamanian Communication Ability: Effective Tie Loader Required: No Beliefs That Will Affect Care: None marital status: Single marital status details: Maribel [phone] Current Living Situation: Family Current Living Situation Comment: lives with mom at this time current occupational status: unemployed Feels Safe at Home: Yes Gender Identity: Female Assistive Devices: None Allergies Allergies Allergy/AdvReac Type Severity Reaction Status Date / Time No Known Allergies Allergy Verified 04/23/23 23:55 Home Meds Home Medications Medication Instructions Recorded Confirmed paliperidone palmitate 156 mg/mL 156 mg IM DIRECTED 04/23/23 04/24/23 intramuscular syringe (Invega Sustenna) sertraline 100 mg tablet 100 mg PO DAILY 04/23/23 04/23/23 trazodone 100 mg tablet 100 mg PO HS 04/23/23 04/23/23 olanzapine 15 mg tablet 15 mg PO HS 04/24/23 04/24/23 Results & Data (ED) Vital Signs Vital Signs - 24 hr 04/23/23 20:54 04/24/23 00:55 Temperature 36.4 C L Temperature Source Temporal Artery Scan Pulse Rate 113 H Pulse Rate [Finger] 91 H Pulse Rhythm [Finger] Regular Pulse Strength [Finger] Normal Respiratory Rate 18 16 Respiratory Effort / Characteristics Non-Labored Non-Labored Spontaneous Respiratory Depth Normal Normal Respiratory Pattern Regular Blood Pressure 179/119 H Blood Pressure [Right Arm] 150/92 H Blood Pressure Mean 139 Blood Pressure Mean [Right Arm] 111 Blood Pressure Position [Right Arm] Lying Pulse Oximetry 99 99 Oxygen Delivery Method Room Air Room Air Sepsis Recent Fever Within 48 Hours No Sepsis New/Unexplained Change in Mental Status No Sepsis Action Taken by Nursing No Action Required Laboratory Data 04/23/23 22:00 04/23/23 22:00 Lab Results 04/23/23 04/23/23 04/23/23 Range/Units 21:02 22:00 22:00 WBC 5.78 (4.8-10.8) K/ul RBC 4.59 (4.20-5.40) M/uL Hgb 10.5 L (12.0-16.0) g/dl Hct 31.9 L (37.0-47.0) % MCV 69.5 L (80.0-100.0) fL MCH 22.9 L (25.0-34.0) pg MCHC 32.9 (32.0-36.0) g/dL RDW Std Deviation 34.2 L (36.4-46.3) fL RDW Coeff of [place] 14.0 (11.5-14.5) % Plt Count 255 (130-400) K/uL MPV 10.4 (9.4-12.4) fL Immature Gran % (Auto) 0.3 % Neut % (Auto) 78.9 % Lymph % (Auto) 14.5 % [place] % (Auto) 6.1 % Eos % (Auto) 0.0 % Baso % (Auto) 0.2 % Neut # (Auto) 4.56 (1.40-6.50) K/uL Lymph # (Auto) 0.84 L (1.20-3.40) K/uL [place] # (Auto) 0.35 (0.11-0.59) K/uL Eos # (Auto) 0.00 (0.00-0.50) K/uL Baso # (Auto) 0.01 (0.00-0.20) K/uL Immature Gran # (Auto) 0.02 (0.01-0.20) K/uL Poikilocytosis Present Anisocytosis Present Sodium 134 L (136-145) mmol/L Potassium 3.1 L (3.5-5.1) mmol/L Chloride 105 (98-107) mmol/L Carbon Dioxide 23 (21-32) mmol/L Anion Gap 6 (3-11) BUN 7 (6-23) mg/dl Creatinine 0.77 (0.6-1.2) mg/dl Est Cr Clr Drug Dosing Not Reportable Est GFR ( Amer) 115.9 ml/min Est GFR (Non-Af Amer) 100.0 ml/min BUN/Creatinine Ratio 9.1 L (10-20) Glucose 127 H (70-99(Fasting)) mg/dl Calcium 9.1 (8.6-10.3) mg/dl Total Bilirubin 0.3 (0.2-1.0) mg/dl AST 18 (13-39) U/L ALT 13 (7-52) U/L Alkaline Phosphatase 62 (34-104) U/L Total Protein 7.1 (6.0-8.3) gm/dl Albumin 4.3 (3.4-5.0) gm/dl Globulin 2.8 (2.5-4.0) gm/dl Albumin/Globulin Ratio 1.5 (0.9-2) TSH (0.300-4.500) uIu/ml Urine Color Urine Appearance (Clear) Urine pH (4.5-7.5) Ur Specific [place] (1.000-1.030) Urine Protein (Negative) Urine Glucose (UA) (Negative) Urine Ketones (Negative) Urine Blood (Negative) Urine Nitrite (Negative) Urine Bilirubin (Negative) Urine Urobilinogen (Negative) Ur Leukocyte Esterase (Negative) POC Ur Test NEG (NEG) Salicylates (3.0-30) mg/dl Urine Opiates Screen (Neg) Ur Methadone, Qual (Neg) Acetaminophen (10-30) ug/ml Urine Barbiturates (Neg) Ur Phencyclidine (PCP) (Neg) U Amphetamin/Meth Scrn (Neg) MDMA (Ecstasy) Screen (Neg) U Benzodiazepines Scrn (Neg) Ur Cocaine Metabolite (Neg) U Marijuana (THC) Screen (Neg) Ethyl Alcohol mg/dL (<10.0) mg/dl SARS-CoV-2, RNA, NAAT (NEGATIVE) 04/23/23 04/23/23 04/23/23 Range/Units 22:00 22:00 22:00 WBC (4.8-10.8) K/ul RBC (4.20-5.40) M/uL Hgb (12.0-16.0) g/dl Hct (37.0-47.0) % MCV (80.0-100.0) fL MCH (25.0-34.0) pg MCHC (32.0-36.0) g/dL RDW Std Deviation (36.4-46.3) fL RDW Coeff of [place] (11.5-14.5) % Plt Count (130-400) K/uL MPV (9.4-12.4) fL Immature Gran % (Auto) % Neut % (Auto) % Lymph % (Auto) % [place] % (Auto) % Eos % (Auto) % Baso % (Auto) % Neut # (Auto) (1.40-6.50) K/uL Lymph # (Auto) (1.20-3.40) K/uL [place] # (Auto) (0.11-0.59) K/uL Eos # (Auto) (0.00-0.50) K/uL Baso # (Auto) (0.00-0.20) K/uL Immature Gran # (Auto) (0.01-0.20) K/uL Poikilocytosis Anisocytosis Sodium (136-145) mmol/L Potassium (3.5-5.1) mmol/L Chloride (98-107) mmol/L Carbon Dioxide (21-32) mmol/L Anion Gap (3-11) BUN (6-23) mg/dl Creatinine (0.6-1.2) mg/dl Est Cr Clr Drug Dosing Est GFR ( Amer) ml/min Est GFR (Non-Af Amer) ml/min BUN/Creatinine Ratio (10-20) Glucose (70-99(Fasting)) mg/dl Calcium (8.6-10.3) mg/dl Total Bilirubin (0.2-1.0) mg/dl AST (13-39) U/L ALT (7-52) U/L Alkaline Phosphatase (34-104) U/L Total Protein (6.0-8.3) gm/dl Albumin (3.4-5.0) gm/dl Globulin (2.5-4.0) gm/dl Albumin/Globulin Ratio (0.9-2) TSH 0.525 (0.300-4.500) uIu/ml Urine Color Urine Appearance (Clear) Urine pH (4.5-7.5) Ur Specific [place] (1.000-1.030) Urine Protein (Negative) Urine Glucose (UA) (Negative) Urine Ketones (Negative) Urine Blood (Negative) Urine Nitrite (Negative) Urine Bilirubin (Negative) Urine Urobilinogen (Negative) Ur Leukocyte Esterase (Negative) POC Ur Test (NEG) Salicylates < 3.0 L (3.0-30) mg/dl Urine Opiates Screen (Neg) Ur Methadone, Qual (Neg) Acetaminophen < 3 L (10-30) ug/ml Urine Barbiturates (Neg) Ur Phencyclidine (PCP) (Neg) U Amphetamin/Meth Scrn (Neg) MDMA (Ecstasy) Screen (Neg) U Benzodiazepines Scrn (Neg) Ur Cocaine Metabolite (Neg) U Marijuana (THC) Screen (Neg) Ethyl Alcohol mg/dL < 10.0 (<10.0) mg/dl SARS-CoV-2, RNA, NAAT (NEGATIVE) 04/23/23 04/23/23 04/23/23 Range/Units 22:00 Unknown Unknown WBC (4.8-10.8) K/ul RBC (4.20-5.40) M/uL Hgb (12.0-16.0) g/dl Hct (37.0-47.0) % MCV (80.0-100.0) fL MCH (25.0-34.0) pg MCHC (32.0-36.0) g/dL RDW Std Deviation (36.4-46.3) fL RDW Coeff of [place] (11.5-14.5) % Plt Count (130-400) K/uL MPV (9.4-12.4) fL Immature Gran % (Auto) % Neut % (Auto) % Lymph % (Auto) % [place] % (Auto) % Eos % (Auto) % Baso % (Auto) % Neut # (Auto) (1.40-6.50) K/uL Lymph # (Auto) (1.20-3.40) K/uL [place] # (Auto) (0.11-0.59) K/uL Eos # (Auto) (0.00-0.50) K/uL Baso # (Auto) (0.00-0.20) K/uL Immature Gran # (Auto) (0.01-0.20) K/uL Poikilocytosis Anisocytosis Sodium (136-145) mmol/L Potassium (3.5-5.1) mmol/L Chloride (98-107) mmol/L Carbon Dioxide (21-32) mmol/L Anion Gap (3-11) BUN (6-23) mg/dl Creatinine (0.6-1.2) mg/dl Est Cr Clr Drug Dosing Est GFR ( Amer) ml/min Est GFR (Non-Af Amer) ml/min BUN/Creatinine Ratio (10-20) Glucose (70-99(Fasting)) mg/dl Calcium (8.6-10.3) mg/dl Total Bilirubin (0.2-1.0) mg/dl AST (13-39) U/L ALT (7-52) U/L Alkaline Phosphatase (34-104) U/L Total Protein (6.0-8.3) gm/dl Albumin (3.4-5.0) gm/dl Globulin (2.5-4.0) gm/dl Albumin/Globulin Ratio (0.9-2) TSH (0.300-4.500) uIu/ml Urine Color Yellow Urine Appearance Clear (Clear) Urine pH 6.5 (4.5-7.5) Ur Specific [place] 1.002 (1.000-1.030) Urine Protein Negative (Negative) Urine Glucose (UA) Negative (Negative) Urine Ketones Negative (Negative) Urine Blood Negative (Negative) Urine Nitrite Negative (Negative) Urine Bilirubin Negative (Negative) Urine Urobilinogen Negative (Negative) Ur Leukocyte Esterase Negative (Negative) POC Ur Test (NEG) Salicylates (3.0-30) mg/dl Urine Opiates Screen Neg (Neg) Ur Methadone, Qual Neg (Neg) Acetaminophen (10-30) ug/ml Urine Barbiturates Neg (Neg) Ur Phencyclidine (PCP) Neg (Neg) U Amphetamin/Meth Scrn Neg (Neg) MDMA (Ecstasy) Screen Neg (Neg) U Benzodiazepines Scrn Neg (Neg) Ur Cocaine Metabolite Neg (Neg) U Marijuana (THC) Screen Pos H (Neg) Ethyl Alcohol mg/dL (<10.0) mg/dl SARS-CoV-2, RNA, NAAT NEGATIVE (NEGATIVE) Administered Medications Hydroxyzine HCl (Hydroxyzine Hcl 25 Mg Tab) 50 mg PO HSZ PRN PRN Reason: Insomnia Stop: 05/24/23 03:19 Last Admin: 04/24/23 03:31 Dose: 50 mg Documented By: JULIÁN Nicotine (Nicotine 21 Mg/24 Hr Tdsy) 21 mg TD QAM [facility] Stop: 05/24/23 08:59 Last Admin: 04/24/23 08:53 Dose: 21 mg Documented By: HOWIE Olanzapine (Olanzapine Zydis 10 Mg Orally Dis. Tab) 10 mg PO Q6 PRN PRN Reason: Psychosis or Martita Stop: 05/24/23 09:58 Last Admin: 04/24/23 10:23 Dose: 10 mg Documented By: HOWIE Discontinued Medications Olanzapine (Olanzapine 10 Mg/2.1 Ml Sdv) 10 mg IM NOW STA Stop: 04/24/23 09:50 Last Admin: 04/24/23 10:51 Dose: Not Given Documented By: HOWIE Paliperidone Palmitate (Paliperidone Palmitate 234 Mg/1.5 Ml Syr) 234 mg IM TODAY@1300 [facility] Stop: 04/24/23 13:01 Last Admin: 04/24/23 13:08 Dose: 234 mg Documented By: HOWIE Discharge Plan Visit Data Chief Complaint: Mental Health Evaluation Stated Complaint: SUICIDAL THOUGHTS ED Provider: Marie Bocanegra Discharge Problem: Suicidal ideation Patient Disposition: Admitted As Inpatient Discharge Instructions Interventions: ED Discharge Assessment Last Done: 04/24/23 03:13
[2023-04-24] MEDS: NICOTINE 21 MG/24 HR TDSY TD SCH (08:53)
[2023-04-24] MEDS ORDERED: OLANZapine 10 MG/2.1 ML SDV IM STA (09:49)
[2023-04-24] MEDS ORDERED: LORazepam 1 MG TAB PO PRN (11:51)
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
[2023-04-24] MEDS ORDERED: PALIPERIDONE PALMITATE 234 MG/1.5 ML SYR IM SCH (13:00)
[2023-04-24] MEDS: traZODone HCL 100 MG TAB PO SCH (21:23)
[2023-04-24] MEDS: OLANZapine 5 MG TABLET PO SCH (21:23)
[2023-04-25] MEDS: SERTRALINE HCL 100 MG TABLET PO SCH (08:10)
[2023-04-25] MEDS: NICOTINE 21 MG/24 HR TDSY TD SCH (08:11)
--- NOTE | 2023-04-25 09:13 | Psychiatric Progress Note ---
Date of Service April 25, 2023 Impression / Recommendations Impression 37 y/o woman with a history of bipolar disorder with a current exacerbation that appears to have begun in January and worsened. She's reported to have responded initially to [place] paliperidone. Her next injection is due today and she has asked if the dose can be increased. This makes good sense to me. She is quite unstable now and requires psychiatric admission for safety and stabilization as well as medication adjustment. 04/25/2023: Pt has been less manic. She's been participating in groups and her restlessness has been diminishing. She readily accepted paliperidone palmitate yesterday and required no PRN's last night. She did require PRN oral olanzapine this morning due to escalating irritability, and appeared to benefit from that. Appears to tolerate medication without evidence of adverse effects. A commitment hearing was held today at which pt was committed for up to 20 days. She listened to the proceedings but declined to testify. She was able to accept the decision. (1) Bipolar I disorder, most recent episode manic, severe with psychotic features: Plan 04/25/2023: * continue paliperidone palmitate 234 mg IM Q4 wk - administered 04/24/2023, increased from home dose 156 mg * continue home medication olanzapine 15 mg QHS * continue home medication sertraline 200 mg daily * continue home medication trazodone 100 mg QHS * continue olanzapine ODT 10 mg Q6 hr PRN mirta or psychosis * continue lorazepam 2 mg PO Q6 hr PRN mirta 04/24/2023: The patient was admitted to the [facility] ([facility] mental health unit) on q15 min checks (behavioral with suicide precautions) for safety. The patient will participate in group, recreational, and milieu therapies and will be offered additional individual and family sessions as clinically appropriate. A private room is medically necessary for the safety of self and others in light of her mirta and aggression. * increase paliperidone palmitate to 234 mg IM Q4 wk starting today * continue home medication olanzapine 15 mg QHS * continue home medication sertraline 200 mg daily * continue home medication trazodone 100 mg QHS * olanzapine ODT 10 mg Q6 hr PRN mirta or psychosis * lorazepam 2 mg PO Q6 hr PRN mirta Inventory Assets Strengths: supportive relationships, has local supports, intelligent Needs: safety and stabilization, medication adjustment, additional coping skills, increased outpatient services, case management Suicide Risk Level Suicide Risk Level: High-Moderate (q15 min suicide checks) Suicide Risk Level Comments: manic, disorganized, angry, and frightened; tried to jump out of car on the way to the ED Risk Factors Assessment Male: No : No Do You Have Access To A Gun?: No Health Problems: No Mental Health Diagnoses: Yes Substance Use Disorders: Yes Previous Attempt: No Family History of Suicide: No Previous Psychiatric Hospitalization: Yes Hopelessness: No Protective Factors Assessment : No Responsible for Young Children: No (pt's mother has temporary custody of daughter) Employed: No Stable Relationships: No Supportive Family: Yes Interval History Identifying Information DEANNE TREJO is a 37-year-old F who currently lives in [facility] with her mother, has a history of bipolar disorder, and was admitted on 04/24/23 02:53 on a 302 involuntary commitment for mirta and suicidal behavior. She was committed for up to 20 days at a 303 hearing on 04/25/2023 Chief Complaint "I'm trying to get better". Review of Systems Sleep Information Total Hours of Sleep: 7 Sleep Comments: Late admission overnight Meal Information Percent Meal Consumed - Breakfast: 100 Percent Meal Consumed - Lunch: 90 Percent Meal Consumed - Dinner: 100 Subjective Subjective Patient was seen & assessed and interval progress reviewed in a multidisciplinary team meeting with the treatment team. For details, see the "Impression" section. Physical Exam Psychiatric Orientation: alert, oriented to person, oriented to place and oriented to time Apperance: appropriately dressed, appropriately groomed and appeared stated age Eye Contact: + fair eye contact Motor Behavior: + psychomotor agitation (dancing) Speech: + pressured speech Affect: + labile affect and + irritable affect Mood: + irritable mood Thought Process: + flight of ideas, + looseness of associations and + clanging Thought Content: + neologisms and + persecution Suicidal Thoughts: denies suicidal thoughts (despite reportedly trying to jump from moving car), denies suicidal plan and denies suicidal intent Homicidal Thoughts: denies homicidal thoughts Hallucinations: no auditory hallucinations and no visual hallucinations Cognition: recent memory grossly intact, remote memory grossly intact and language grossly intact; + attention not intact Estimated Intelligence: average estimated intelligence Insight: + impaired insight Judgment: + impaired judgement Vital Signs (Past 24 Hours) Last Vital Signs Temp 36.9 C 04/25/23 06:44 Pulse 101 H 04/25/23 06:45 Resp 16 04/25/23 06:44 BP 138/89 04/25/23 06:45 Pulse Ox 99 04/24/23 04:26 O2 Del Method Room Air 04/24/23 04:26 Results & Data ([facility]) Current Inpatient Medications Current Inpatient Medications: Current Inpatient Medications Acetaminophen (Acetaminophen 325 Mg Tab) 650 mg PO Q4H PRN PRN Reason: Headache or Minor Fever Stop: 05/24/23 03:19 Al Hydrox/Mg Hydrox/Simethicone (Aluminum/Magnesium Susp 30 Ml Udc) 30 ml PO Q4H PRN PRN Reason: GI Upset Stop: 05/24/23 03:19 Bismuth Subsalicylate (Bismuth Subsalicylate Liqd 236 Ml) 15 ml PO PRN PRN PRN Reason: Loose Stool Stop: 05/24/23 03:19 Hydroxyzine HCl (Hydroxyzine Hcl 25 Mg Tab) 50 mg PO HSZ PRN PRN Reason: Insomnia Stop: 05/24/23 03:19 Last Admin: 04/24/23 03:31 Dose: 50 mg Hydroxyzine HCl (Hydroxyzine Hcl 25 Mg Tab) 25 mg PO Q4H PRN PRN Reason: Anxiety Stop: 05/24/23 03:19 Lorazepam (Lorazepam 1 Mg Tab) 2 mg PO Q6 PRN PRN Reason: mirta Stop: 05/24/23 11:50 Magnesium Hydroxide (Magnesium Hydroxide Susp 30 Ml Udc) 30 ml PO DAILY PRN PRN Reason: Constipation Stop: 05/24/23 03:19 Miscellaneous (Remove Nicoderm Patch) 1 each N/A DAILY@0859 [facility] Stop: 05/25/23 08:58 Last Admin: 04/25/23 08:18 Dose: 1 each Nicotine (Nicotine 21 Mg/24 Hr Tdsy) 21 mg TD QAM [facility] Stop: 05/24/23 08:59 Last Admin: 04/25/23 08:11 Dose: 21 mg Olanzapine (Olanzapine Zydis 10 Mg Orally Dis. Tab) 10 mg PO Q6 PRN PRN Reason: Psychosis or Mirta Stop: 05/24/23 09:58 Last Admin: 04/25/23 08:11 Dose: 10 mg Olanzapine (Olanzapine 5 Mg Tablet) 15 mg PO HS YANELIS Stop: 05/24/23 21:59 Last Admin: 04/24/23 21:23 Dose: 15 mg Sertraline HCl (Sertraline Hcl 100 Mg Tablet) 100 mg PO DAILY YANELIS Stop: 05/25/23 08:59 Last Admin: 04/25/23 08:10 Dose: 100 mg Sodium Chloride (Sodium Chloride 0.65% Na Soln 45 Ml ([place])) 1 - 2 sprays NA PRN PRN PRN Reason: Nasal Dryness/Congestion Stop: 05/24/23 03:19 Trazodone HCl (Trazodone Hcl 100 Mg Tab) 100 mg PO HS YANELIS Stop: 05/24/23 21:59 Last Admin: 04/24/23 21:23 Dose: 100 mg Mental Health & Subst Abuse Tx Psychiatrist Name of Psychiatrist: Emily Prajapati Psychiatrist's Psychiatric Appointment Comment: [address] [place] [address] Therapist Name of Therapist: [facility] Therapist's Phone Number: [phone] Therapy Appointment Comment: [phone] [place] [address] Fiberglasser Name of Fiberglasser: None Post Discharge Appointments Primary Care Physician Name Of Family Doctor/PCP: [facility] Primary Care Provider Appointment Comment: [phone] [place] [address]
[2023-04-25] MEDS: OLANZapine 5 MG TABLET PO SCH (21:27)
[2023-04-25] MEDS: traZODone HCL 100 MG TAB PO SCH (21:27)
[2023-04-25] MEDS: hydrOXYzine HCl 25 MG TAB PO PRN (21:32)
[2023-04-26] MEDS: NICOTINE 21 MG/24 HR TDSY TD SCH (08:42)
[2023-04-26] MEDS: SERTRALINE HCL 100 MG TABLET PO SCH (08:42)
--- NOTE | 2023-04-26 09:32 | Psychiatric Progress Note ---
Date of Service April 26, 2023 Impression / Recommendations Impression Agree with assessment per Dr. Haley's: 37 y/o woman with a history of bipolar disorder with a current exacerbation that appears to have begun in January and worsened. She's reported to have responded initially to [place] paliperidone. Her next injection is due today and she has asked if the dose can be increased. This makes good sense to me. She is quite unstable now and requires psychiatric admission for safety and stabilization as well as medication adjustment. Now on 303 commitment. MNPR due to acute mirta with delusions and irritability 04/26/2023: Ongoing acute mirta but slightly less irritable and sleeping more. Consents to dose reduction of sertraline given acute mirta. Reviewed side effects of Invega and olanzapine including but not limited to: movement (TD, N MS), cardiac (QTc prolongation), and metabolic (stroke, insulin resistance) and necessity for fasting lipid and glucose labwork and AIMS done with score of 0. Overall, I spent a total of 55 minutes with this case including review of chart records, direct evaluation of the patient at bedside, counseling the patient, discussion during interdisciplinary treatment rounds, risk assessment, and documentation in the electronic health record. (1) Bipolar I disorder, most recent episode manic, severe with psychotic features: Plan 04/26/2023: Decrease sertraline to 50mg daily with plan to taper to discontinuation given mirta. Fasting lipid panel and glucose in AM. 04/25/2023: * continue paliperidone palmitate 234 mg IM Q4 wk - administered 04/24/2023, increased from home dose 156 mg * continue home medication olanzapine 15 mg QHS * continue home medication sertraline 100 mg daily * continue home medication trazodone 100 mg QHS * continue olanzapine ODT 10 mg Q6 hr PRN mirta or psychosis * continue lorazepam 2 mg PO Q6 hr PRN mirta 04/24/2023: The patient was admitted to the [facility] ([facility] inpatient mental health unit) on q15 min checks (behavioral with suicide precautions) for safety. The patient will participate in group, recreational, and milieu therapies and will be offered additional individual and family sessions as clinically appropriate. A private room is medically necessary for the safety of self and others in light of her mirta and aggression. * increase paliperidone palmitate to 234 mg IM Q4 wk starting today * continue home medication olanzapine 15 mg QHS * continue home medication sertraline 100 mg daily * continue home medication trazodone 100 mg QHS * olanzapine ODT 10 mg Q6 hr PRN mirta or psychosis * lorazepam 2 mg PO Q6 hr PRN mirta Inventory Assets Strengths: supportive relationships, has local supports, intelligent Needs: safety and stabilization, medication adjustment, additional coping skills, increased outpatient services, case management Suicide Risk Level Suicide Risk Level: High-Moderate (q15 min suicide checks) (acute mirta with disorganized behaviors and delusions including attempt to jump from moving car on way to ED prior to admission, ongoing mirta and delusions but denies SI and feels safe on the unit, agrees to let staff know if she feels unsafe) Risk Factors Assessment Male: No : No Do You Have Access To A Gun?: No Health Problems: No Mental Health Diagnoses: Yes Substance Use Disorders: Yes Previous Attempt: No Family History of Suicide: No Previous Psychiatric Hospitalization: Yes Hopelessness: No Protective Factors Assessment : No Responsible for Young Children: No (pt's mother has temporary custody of infant daughter) Employed: No Stable Relationships: No Supportive Family: Yes Interval History Identifying Information DEANNE TREJO is a 37-year-old F who currently lives in [facility] with her mother, has a history of bipolar disorder, and was admitted on 04/24/23 02:53 on a 302 involuntary commitment for mirta and suicidal behavior. She was committed for up to 20 days at a 303 hearing on 04/25/2023. Chief Complaint "I still have a lot of ideas, my mom calls them flight of ideas". Review of Systems Sleep Information Total Hours of Sleep: 6 Sleep Comments: Meal Information Percent Meal Consumed - Breakfast: 100 Percent Meal Consumed - Lunch: 100 Percent Meal Consumed - Dinner: 100 Subjective Subjective Patient was seen & assessed and interval progress reviewed with treatment team nursing and social work. Slept 6 hours last night. Walking in halls this morning with headphones on. Agreeable with diagnosis of mirta, feels her thoughts are slightly easier to follow but still busy. Feels she is now between mountains and in the valleys and needs to figure out how to find the energy to walk up the next mountain metaphorically. Speaks of being spiritually connected with others and that this is important for her. Denies any side effects from higher dose of Invega so far. Physical Exam Psychiatric Orientation: alert, oriented x 3 and + guarded Apperance: appropriately dressed, appropriately groomed and appeared stated age Eye Contact: + fair eye contact Motor Behavior: + psychomotor agitation (pacing) Speech: + pressured speech Affect: + labile affect and + irritable affect Mood: + irritable mood Thought Process: + flight of ideas and + looseness of associations Thought Content: + preoccupation (confucianism themes) and + persecution Suicidal Thoughts: denies suicidal thoughts (despite reportedly trying to jump from moving car prior to admission), denies suicidal plan and denies suicidal intent Homicidal Thoughts: denies homicidal thoughts Hallucinations: no auditory hallucinations and no visual hallucinations Cognition: recent memory grossly intact, remote memory grossly intact and language grossly intact; + attention not intact Estimated Intelligence: average estimated intelligence Insight: + impaired insight Judgment: + impaired judgement Vital Signs (Past 24 Hours) Last Vital Signs Temp 36.7 C 04/26/23 06:49 Pulse 82 04/26/23 06:49 Resp 18 04/26/23 06:49 BP 134/85 04/26/23 06:49 Pulse Ox 98 04/26/23 06:49 O2 Del Method Room Air 04/26/23 06:49 Results & Data ([facility]) Current Inpatient Medications Current Inpatient Medications: Current Inpatient Medications Acetaminophen (Acetaminophen 325 Mg Tab) 650 mg PO Q4H PRN PRN Reason: Headache or Minor Fever Stop: 05/24/23 03:19 Al Hydrox/Mg Hydrox/Simethicone (Aluminum/Magnesium Susp 30 Ml Udc) 30 ml PO Q4H PRN PRN Reason: GI Upset Stop: 05/24/23 03:19 Bismuth Subsalicylate (Bismuth Subsalicylate Liqd 236 Ml) 15 ml PO PRN PRN PRN Reason: Loose Stool Stop: 05/24/23 03:19 Hydroxyzine HCl (Hydroxyzine Hcl 25 Mg Tab) 50 mg PO HSZ PRN PRN Reason: Insomnia Stop: 05/24/23 03:19 Last Admin: 04/25/23 21:32 Dose: 50 mg Hydroxyzine HCl (Hydroxyzine Hcl 25 Mg Tab) 25 mg PO Q4H PRN PRN Reason: Anxiety Stop: 05/24/23 03:19 Lorazepam (Lorazepam 1 Mg Tab) 2 mg PO Q6 PRN PRN Reason: mirta Stop: 05/24/23 11:50 Magnesium Hydroxide (Magnesium Hydroxide Susp 30 Ml Udc) 30 ml PO DAILY PRN PRN Reason: Constipation Stop: 05/24/23 03:19 Miscellaneous (Remove Nicoderm Patch) 1 each N/A DAILY@0859 [facility] Stop: 05/25/23 08:58 Last Admin: 04/26/23 08:44 Dose: 1 each Nicotine (Nicotine 21 Mg/24 Hr Tdsy) 21 mg TD QAM YANELIS Stop: 05/24/23 08:59 Last Admin: 04/26/23 08:42 Dose: 21 mg Olanzapine (Olanzapine Zydis 10 Mg Orally Dis. Tab) 10 mg PO Q6 PRN PRN Reason: Psychosis or Mirta Stop: 05/24/23 09:58 Last Admin: 04/25/23 08:11 Dose: 10 mg Olanzapine (Olanzapine 5 Mg Tablet) 15 mg PO HS YANELIS Stop: 05/24/23 21:59 Last Admin: 04/25/23 21:27 Dose: 15 mg Sertraline HCl (Sertraline Hcl 100 Mg Tablet) 100 mg PO DAILY YANELIS Stop: 05/25/23 08:59 Last Admin: 04/26/23 08:42 Dose: 100 mg Sodium Chloride (Sodium Chloride 0.65% Na Soln 45 Ml ([place])) 1 - 2 sprays NA PRN PRN PRN Reason: Nasal Dryness/Congestion Stop: 05/24/23 03:19 Trazodone HCl (Trazodone Hcl 100 Mg Tab) 100 mg PO HS YANELIS Stop: 05/24/23 21:59 Last Admin: 04/25/23 21:27 Dose: 100 mg Mental Health & Subst Abuse Tx Psychiatrist Name of Psychiatrist: Emily Prajapati Psychiatrist's Psychiatric Appointment Comment: [address] [place] [address] Therapist Name of Therapist: [facility] Therapist's Phone Number: [phone] Therapy Appointment Comment: [address] [place] [address] [employer] Name of [employer]: None Post Discharge Appointments Primary Care Physician Name Of Family Doctor/PCP: [facility] Primary Care Provider Appointment Comment: [phone] [place] [address]
[2023-04-26 11:12] LABS: Marijuana Quant, GCMS Urine 139 ng/mL (<5)
[2023-04-26] MEDS: traZODone HCL 100 MG TAB PO SCH (21:08)
[2023-04-26] MEDS: OLANZapine 5 MG TABLET PO SCH (21:08)
[2023-04-27] MEDS: NICOTINE 21 MG/24 HR TDSY TD SCH (08:36)
[2023-04-27] MEDS ORDERED: SERTRALINE HCL 50 MG TABLET PO SCH (09:00)
[2023-04-27 09:08] LABS: Chol HDL Ratio 2.1 (0-5)
--- NOTE | 2023-04-27 09:25 | Psychiatric Progress Note ---
Date of Service April 27, 2023 Impression / Recommendations Impression Agree with assessment per Dr. Haley's: 37 y/o woman with a history of bipolar disorder with a current exacerbation that appears to have begun in January and worsened. She's reported to have responded initially to GREENFIELD paliperidone. Her next injection is due today and she has asked if the dose can be increased. This makes good sense to me. She is quite unstable now and requires psychiatric admission for safety and stabilization as well as medication adjustment. Now on 303 commitment. MNPR due to acute mirta with delusions and irritability 04/27/2023: Ongoing mirta, sleeping well but still with significant mood lability and tangential thought context. Reviewed fasting labs notable for normal glucose, TGs, cholesterol, LDL and HDL. Continuing to use dual antipsychotics (olanzapine and recent Invega GREENFIELD) to help with maintenance of sleep and control irritability but with goal of eventually tapering to monotherapy with Invega. 04/26/2023: Ongoing acute mirta but slightly less irritable and sleeping more. Consents to dose reduction of sertraline given acute mirta. Reviewed side effects of Invega and olanzapine including but not limited to: movement (TD, NMS), cardiac (QTc prolongation), and metabolic (stroke, insulin resistance) and necessity for fasting lipid and glucose labwork and AIMS done with score of 0. Overall, I spent a total of 45 minutes with this case including review of chart records, direct evaluation of the patient at bedside, counseling the patient, discussion during interdisciplinary treatment rounds, risk assessment, and documentation in the electronic health record. (1) Bipolar I disorder, most recent episode manic, severe with psychotic features: Plan 04/27/2023: Discontinue sertraline tomorrow. Continue olanzapine, trazodone. Invega GREENFIELD given on 04/24/2023. 04/26/2023: Decrease sertraline to 50mg daily with plan to taper to discontinuation given mirta. Fasting lipid panel and glucose in AM. 04/25/2023: * continue paliperidone palmitate 234 mg IM Q4 wk - administered 04/24/2023, increased from home dose 156 mg * continue home medication olanzapine 15 mg QHS * continue home medication sertraline 100 mg daily * continue home medication trazodone 100 mg QHS * continue olanzapine ODT 10 mg Q6 hr PRN mirta or psychosis * continue lorazepam 2 mg PO Q6 hr PRN mirta 04/24/2023: The patient was [facility] to the [facility] on q15 min checks (behavioral with suicide precautions) for safety. The patient will participate in group, recreational, and milieu therapies and will be offered additional individual and family sessions as clinically appropriate. A private room is medically necessary for the safety of self and others in light of her mirta and aggression. * increase paliperidone palmitate to 234 mg IM Q4 wk starting today * continue home medication olanzapine 15 mg QHS * continue home medication sertraline 100 mg daily * continue home medication trazodone 100 mg QHS * olanzapine ODT 10 mg Q6 hr PRN mirta or psychosis * lorazepam 2 mg PO Q6 hr PRN mirta Inventory Assets Strengths: supportive relationships, has local supports, intelligent Needs: safety and stabilization, medication adjustment, additional coping skills, increased outpatient services, case management Suicide Risk Level Suicide Risk Level: High-Moderate (q15 min suicide checks) (acute mirta with disorganized behaviors and delusions including attempt to jump from moving car on way to ED prior to admission, ongoing mirta and delusions but denies SI and feels safe on the unit, agrees to let staff know if she feels unsafe) Risk Factors Assessment Male: No : No Do You Have Access To A Gun?: No Health Problems: No Mental Health Diagnoses: Yes Substance Use Disorders: Yes Previous Attempt: No Family History of Suicide: No Previous Psychiatric Hospitalization: Yes Hopelessness: No Protective Factors Assessment : No Responsible for Young Children: No (pt's mother has temporary custody of daughter) Employed: No Stable Relationships: No Supportive Family: Yes Interval History Identifying Information DEANNE TREJO is a 37-year-old F who currently lives in [facility] with her mother, has a history of bipolar disorder, and was admitted on 04/24/23 02:53 on a 302 involuntary commitment for mirta and suicidal behavior. She was committed for up to 20 days at a 303 hearing on 04/25/2023. Chief Complaint "I have a lot of haters". Review of Systems Sleep Information Total Hours of Sleep: 6.5 Meal Information Percent Meal Consumed - Breakfast: 100 Percent Meal Consumed - Lunch: 100 Percent Meal Consumed - Dinner: 100 Subjective Subjective Patient was seen & assessed and interval progress reviewed with treatment team nursing and social work. Attending groups and to ADLs. Expressing a lot of appreciation and gratitude for inpatient care. Initially expresses feeling much better "I don't feel hopeless and helpless" but as conversation continues discussing her frustration of being in the hospital, missing her IOP and not feeling well supported in the outpatient setting. Feels she is often misunderstood and labeled as "bad" noting "I have a lot of haters" and transit ions somewhat abruptly into discussing that she prefers to be in [facility] "because I can play volleyball" and "can sleep all day if I want" but also expresses frustration with not being able to attend to "acts of service here which is my love language". She's somewhat resistant to idea of support meeting with her mother but agrees that she is her primary support and will think about this. Denies any medication side effects, enjoyed dance group this morning. Physical Exam Psychiatric Orientation: alert, oriented x 3 and + guarded Apperance: appropriately dressed, appropriately groomed and appeared stated age Eye Contact: + fair eye contact Motor Behavior: + psychomotor agitation (walking or working on crafts while we talk (licking paper to remove edges)) Speech: + pressured speech Affect: euthymic affect, + labile affect and + irritable affect Mood: + anxious mood and + irritable mood Thought Process: + tangential thought process, + flight of ideas and + looseness of associations Thought Content: + preoccupation (mandaeism themes at times, less so today) and + persecution Suicidal Thoughts: denies suicidal thoughts (despite reportedly trying to jump from moving car prior to admission), denies suicidal plan and denies suicidal intent Homicidal Thoughts: denies homicidal thoughts Hallucinations: no auditory hallucinations and no visual hallucinations Cognition: recent memory grossly intact, remote memory grossly intact and language grossly intact; + attention not intact Estimated Intelligence: average estimated intelligence Insight: + impaired insight Judgment: + impaired judgement Vital Signs (Past 24 Hours) Last Vital Signs Temp 36.9 C 04/27/23 06:52 Pulse 100 H 04/27/23 06:52 Resp 16 04/27/23 06:52 BP 140/82 04/27/23 06:52 Pulse Ox 100 04/27/23 06:52 O2 Del Method Room Air 04/27/23 06:52 Results & Data ([facility]) Laboratory Results Laboratory Results - last 24 hr 04/23/23 04/27/23 Unknown 07:13 Fasting Glucose 92 Triglycerides 65 Cholesterol 140 LDL Cholesterol, Calc 60 VLDL Cholesterol, Calc 13 HDL Cholesterol 67 Cholesterol/HDL Ratio 2.1 U Marijuana THC Carboxy 139 H Drug Screen Comment SEE NOTE Current Inpatient Medications Current Inpatient Medications: Current Inpatient Medications Acetaminophen (Acetaminophen 325 Mg Tab) 650 mg PO Q4H PRN PRN Reason: Headache or Minor Fever Stop: 05/24/23 03:19 Al Hydrox/Mg Hydrox/Simethicone (Aluminum/Magnesium Susp 30 Ml Udc) 30 ml PO Q4H PRN PRN Reason: GI Upset Stop: 05/24/23 03:19 Bismuth Subsalicylate (Bismuth Subsalicylate Liqd 236 Ml) 15 ml PO PRN PRN PRN Reason: Loose Stool Stop: 05/24/23 03:19 Hydroxyzine HCl (Hydroxyzine Hcl 25 Mg Tab) 50 mg PO HSZ PRN PRN Reason: Insomnia Stop: 05/24/23 03:19 Last Admin: 04/25/23 21:32 Dose: 50 mg Hydroxyzine HCl (Hydroxyzine Hcl 25 Mg Tab) 25 mg PO Q4H PRN PRN Reason: Anxiety Stop: 05/24/23 03:19 Lorazepam (Lorazepam 1 Mg Tab) 2 mg PO Q6 PRN PRN Reason: mirta Stop: 05/24/23 11:50 Magnesium Hydroxide (Magnesium Hydroxide Susp 30 Ml Udc) 30 ml PO DAILY PRN PRN Reason: Constipation Stop: 05/24/23 03:19 Miscellaneous (Remove Nicoderm Patch) 1 each N/A DAILY@0859 [facility] Stop: 05/25/23 08:58 Last Admin: 04/27/23 08:40 Dose: 1 each Nicotine (Nicotine 21 Mg/24 Hr Tdsy) 21 mg TD QAM YANELIS Stop: 05/24/23 08:59 Last Admin: 04/27/23 08:36 Dose: 21 mg Olanzapine (Olanzapine Zydis 10 Mg Orally Dis. Tab) 10 mg PO Q6 PRN PRN Reason: Psychosis or Mirta Stop: 05/24/23 09:58 Last Admin: 04/25/23 08:11 Dose: 10 mg Olanzapine (Olanzapine 5 Mg Tablet) 15 mg PO HS YANELIS Stop: 05/24/23 21:59 Last Admin: 04/26/23 21:08 Dose: 15 mg Sertraline HCl (Sertraline Hcl 50 Mg Tablet) 50 mg PO DAILY YANELIS Stop: 05/27/23 08:59 Last Admin: 04/27/23 08:36 Dose: 50 mg Sodium Chloride (Sodium Chloride 0.65% Na Soln 45 Ml ([place])) 1 - 2 sprays NA PRN PRN PRN Reason: Nasal Dryness/Congestion Stop: 05/24/23 03:19 Trazodone HCl (Trazodone Hcl 100 Mg Tab) 100 mg PO HS YANELIS Stop: 05/24/23 21:59 Last Admin: 04/26/23 21:08 Dose: 100 mg Mental Health & Subst Abuse Tx Psychiatrist Name of Psychiatrist: Emily Prajapati Psychiatrist's Psychiatric Appointment Comment: [address] [place] [address] Therapist Name of Therapist: [facility] Therapist's Phone Number: [phone] Therapy Appointment Comment: [address] [place] [address] Assistant Media Buyer Name of Assistant Media Buyer: None Post Discharge Appointments Primary Care Physician Name Of Family Doctor/PCP: [facility] Primary Care Provider Appointment Comment: [address] [place] [address]
[2023-04-27] MEDS: OLANZapine 5 MG TABLET PO SCH (21:00)
[2023-04-27] MEDS: traZODone HCL 100 MG TAB PO SCH (21:00)
[2023-04-28] MEDS: NICOTINE 21 MG/24 HR TDSY TD SCH (08:48)
--- NOTE | 2023-04-28 09:24 | Psychiatric Progress Note ---
Date of Service April 28, 2023 Impression / Recommendations Impression Agree with assessment per Dr. Haley's: 37 y/o woman with a history of bipolar disorder with a current exacerbation that appears to have begun in January and worsened. She's reported to have responded initially to GREENFIELD paliperidone. Her next injection is due today and she has asked if the dose can be increased. This makes good sense to me. She is quite unstable now and requires psychiatric admission for safety and stabilization as well as medication adjustment. Now on 303 commitment. MNPR due to acute mirta with delusions and irritability 04/28/2023: Ongoing mirta but sleep continues to improve and less lability and irritability today. Thought content more organized. Reached out to her mother to schedule family meeting. Showing more insight into her medications and changes. 04/27/2023: Ongoing mirta, sleeping well but still with significant mood lability and tangential thought context. Reviewed fasting labs notable for normal glucose, TGs, cholesterol, LDL and HDL. Continuing to use dual antipsychotics (olanzapine and recent Invega GREENFIELD) to help with maintenance of sleep and control irritability but with goal of eventually tapering to monotherapy with Invega. 04/26/2023: Ongoing acute mirta but slightly less irritable and sleeping more. Consents to dose reduction of sertraline given acute mirta. Reviewed side effects of Invega and olanzapine including but not limited to: movement (TD, NMS), cardiac (QTc prolongation), and metabolic (stroke, insulin resistance) and necessity for fasting lipid and glucose labwork and AIMS done with score of 0. Overall, I spent a total of 35 minutes with this case including review of chart records, direct evaluation of the patient at bedside, counseling the patient, discussion during interdisciplinary treatment rounds, risk assessment, and documentation in the electronic health record. (1) Bipolar I disorder, most recent episode manic, severe with psychotic features: Plan 04/28/2023: Continue olanzapine, trazodone. Needs a family meeting. 04/27/2023: Discontinue sertraline tomorrow. Continue olanzapine, trazodone. Invega GREENFIELD given on 04/24/2023. 04/26/2023: Decrease sertraline to 50mg daily with plan to taper to discontinuation given mirta. Fasting lipid panel and glucose in AM. 04/25/2023: * continue paliperidone palmitate 234 mg IM Q4 wk - administered 04/24/2023, increased from home dose 156 mg * continue home medication olanzapine 15 mg QHS * continue home medication sertraline 100 mg daily * continue home medication trazodone 100 mg QHS * continue olanzapine ODT 10 mg Q6 hr PRN mirta or psychosis * continue lorazepam 2 mg PO Q6 hr PRN mirta 04/24/2023: The patient was admitted to the [facility] on q15 min checks (behavioral with suicide precautions) for safety. The patient will participate in group, recreational, and milieu therapies and will be offered additional individual and family sessions as clinically appropriate. A private room is medically necessary for the safety of self and others in light of her mirat and aggression. * increase paliperidone palmitate to 234 mg IM Q4 wk starting today * continue home medication olanzapine 15 mg QHS * continue home medication sertraline 100 mg daily * continue home medication trazodone 100 mg QHS * olanzapine ODT 10 mg Q6 hr PRN mirta or psychosis * lorazepam 2 mg PO Q6 hr PRN mirta Inventory Assets Strengths: supportive relationships, has local supports, intelligent Needs: safety and stabilization, medication adjustment, additional coping skills, increased outpatient services, case management Suicide Risk Level Suicide Risk Level: Moderate (q15 min suicide checks) (acute mirta with disorganized behaviors and delusions including attempt to jump from moving car on way to ED prior to admission, ongoing mirta but less lability, denying SI and feels safe on the unit, agrees to let staff know if she feels unsafe) Risk Factors Assessment Male: No : No Do You Have Access To A Gun?: No Health Problems: No Mental Health Diagnoses: Yes Substance Use Disorders: Yes Previous Attempt: No Family History of Suicide: No Previous Psychiatric Hospitalization: Yes Hopelessness: No Protective Factors Assessment : No Responsible for Young Children: No (pt's mother has temporary custody of infant daughter) Employed: No Stable Relationships: No Supportive Family: Yes Interval History Identifying Information DEANNE TREJO is a 37-year-old F who currently lives in [facility] with her mother, has a history of bipolar disorder, and was admitted on 04/24/23 02:53 on a 302 involuntary commitment for mirta and suicidal behavior. She was committed for up to 20 days at a 303 hearing on 04/25/2023. Chief Complaint "Yeah I called my mom". Review of Systems Sleep Information Total Hours of Sleep: 7 Meal Information Percent Meal Consumed - Breakfast: 100 Percent Meal Consumed - Lunch: 100 Percent Meal Consumed - Dinner: 100 Subjective Subjective Patient was seen & assessed and interval progress reviewed with treatment team nursing and social work. Slept well last night. This morning asking for music lyrics, wanting to shower "SEVERO", making some demands and irritable when needs cannot be met right away. Attending groups all day and social with peers. Talked to friends on the phone. Left a message with her mother to try to plan for a family meeting. She denies any medication side effects, appropriately asks about getting a prescription for olanzapine as she doesn't have this at home, reviewed this will occur on discharge. Physical Exam Psychiatric Orientation: alert, oriented x 3 and + guarded Apperance: appropriately dressed, appropriately groomed and appeared stated age Eye Contact: + fair eye contact Motor Behavior: no abnormal motor movements Speech: + abnormal rate/rhythm/volume of speech (slightly rapid but able to interrupt) Affect: euthymic affect Mood: + irritable mood (at times, more so in the morning); no anxious mood Thought Process: clear/coherent thought process and + circumstantial thought process Thought Content: reality based without delusions Suicidal Thoughts: denies suicidal thoughts (despite reportedly trying to jump from moving car prior to admission), denies suicidal plan and denies suicidal intent Homicidal Thoughts: denies homicidal thoughts Hallucinations: no auditory hallucinations and no visual hallucinations Cognition: recent memory grossly intact, remote memory grossly intact and language grossly intact; + attention not intact Estimated Intelligence: average estimated intelligence Insight: + impaired insight Judgment: + impaired judgement Vital Signs (Past 24 Hours) Last Vital Signs Temp 36.6 C 04/28/23 06:44 Pulse 87 04/28/23 06:44 Resp 16 04/28/23 06:44 BP 108/76 04/28/23 06:44 Pulse Ox 100 04/27/23 06:52 O2 Del Method Room Air 04/27/23 06:52 Results & Data ([facility]) Current Inpatient Medications Current Inpatient Medications: Current Inpatient Medications Acetaminophen (Acetaminophen 325 Mg Tab) 650 mg PO Q4H PRN PRN Reason: Headache or Minor Fever Stop: 05/24/23 03:19 Al Hydrox/Mg Hydrox/Simethicone (Aluminum/Magnesium Susp 30 Ml Udc) 30 ml PO Q4H PRN PRN Reason: GI Upset Stop: 05/24/23 03:19 Bismuth Subsalicylate (Bismuth Subsalicylate Liqd 236 Ml) 15 ml PO PRN PRN PRN Reason: Loose Stool Stop: 05/24/23 03:19 Hydroxyzine HCl (Hydroxyzine Hcl 25 Mg Tab) 50 mg PO HSZ PRN PRN Reason: Insomnia Stop: 05/24/23 03:19 Last Admin: 04/25/23 21:32 Dose: 50 mg Hydroxyzine HCl (Hydroxyzine Hcl 25 Mg Tab) 25 mg PO Q4H PRN PRN Reason: Anxiety Stop: 05/24/23 03:19 Lorazepam (Lorazepam 1 Mg Tab) 2 mg PO Q6 PRN PRN Reason: mirta Stop: 05/24/23 11:50 Magnesium Hydroxide (Magnesium Hydroxide Susp 30 Ml Udc) 30 ml PO DAILY PRN PRN Reason: Constipation Stop: 05/24/23 03:19 Miscellaneous (Remove Nicoderm Patch) 1 each N/A DAILY@0859 [facility] Stop: 05/25/23 08:58 Last Admin: 04/28/23 08:48 Dose: 1 each Nicotine (Nicotine 21 Mg/24 Hr Tdsy) 21 mg TD QAM YANELIS Stop: 05/24/23 08:59 Last Admin: 04/28/23 08:48 Dose: 21 mg Olanzapine (Olanzapine Zydis 10 Mg Orally Dis. Tab) 10 mg PO Q6 PRN PRN Reason: Psychosis or Mirta Stop: 05/24/23 09:58 Last Admin: 04/25/23 08:11 Dose: 10 mg Olanzapine (Olanzapine 5 Mg Tablet) 15 mg PO HS YANELIS Stop: 05/24/23 21:59 Last Admin: 04/27/23 21:00 Dose: 15 mg Sodium Chloride (Sodium Chloride 0.65% Na Soln 45 Ml ([place])) 1 - 2 sprays NA PRN PRN PRN Reason: Nasal Dryness/Congestion Stop: 05/24/23 03:19 Trazodone HCl (Trazodone Hcl 100 Mg Tab) 100 mg PO HS YANELIS Stop: 05/24/23 21:59 Last Admin: 04/27/23 21:00 Dose: 100 mg Mental Health & Subst Abuse Tx Psychiatrist Name of Psychiatrist: Emily Prajapati Psychiatrist's Psychiatric Appointment Comment: [address] [place] [address] Therapist Name of Therapist: [facility] Therapist's Phone Number: [phone] Therapy Appointment Comment: [address] [place] [address] Ground Wirer Name of Ground Wirer: None Post Discharge Appointments Primary Care Physician Name Of Family Doctor/PCP: [facility] Primary Care Provider Appointment Comment: [address] [place] [address]
[2023-04-28] MEDS: OLANZapine 5 MG TABLET PO SCH (21:41)
[2023-04-28] MEDS: traZODone HCL 100 MG TAB PO SCH (21:41)
[2023-04-29] MEDS: NICOTINE 21 MG/24 HR TDSY TD SCH (08:20)
--- NOTE | 2023-04-29 09:07 | Psychiatric Progress Note ---
Date of Service April 29, 2023 Impression / Recommendations Impression Agree with assessment per Dr. Haley's: 37 y/o woman with a history of bipolar disorder with a current exacerbation that appears to have begun in January and worsened. She's reported to have responded initially to GREENFIELD paliperidone. Her next injection is due today and she has asked if the dose can be increased. This makes good sense to me. She is quite unstable now and requires psychiatric admission for safety and stabilization as well as medication adjustment. Now on 303 commitment. MNPR due to recent mirta which is improving but goal of persevering sleep and avoiding any additional distractions. 04/29/2023: Mirta improving, mood stabilizing with consistent sleep >6hours over the last 4 nights. More insightful about her diagnosis and medications. Had some difficulty tolerating her family meeting so will continue to monitor to ensure no worsening of mood lability or disorganization. 04/28/2023: Ongoing mirta but sleep continues to improve and less lability and irritability today. Thought content more organized. Reached out to her mother to schedule family meeting. Showing more insight into her medications and changes. 04/27/2023: Ongoing mirta, sleeping well but still with significant mood lability and tangential thought context. Reviewed fasting labs notable for normal glucose, TGs, cholesterol, LDL and HDL. Continuing to use dual antipsychotics (olanzapine and recent Invega GREENFIELD) to help with maintenance of sleep and control irritability but with goal of eventually tapering to monotherapy with Invega. 04/26/2023: Ongoing acute mirta but slightly less irritable and sleeping more. Consents to dose reduction of sertraline given acute mirta. Reviewed side effects of Invega and olanzapine including but not limited to: movement (TD, NMS), cardiac (QTc prolongation), and metabolic (stroke, insulin resistance) and necessity for fasting lipid and glucose labwork and AIMS done with score of 0. Overall, I spent a total of 50 minutes with this case including review of chart records, direct evaluation of the patient at bedside, counseling the patient, discussion during interdisciplinary treatment rounds, risk assessment, and documentation in the electronic health record. (1) Bipolar I disorder, most recent episode manic, severe with psychotic features: Plan 04/29/2023: Continue current medications and tx plan. 04/28/2023: Continue olanzapine, trazodone. Needs a family meeting. 04/27/2023: Discontinue sertraline tomorrow. Continue olanzapine, trazodone. Invega GREENFIELD given on 04/24/2023. 04/26/2023: Decrease sertraline to 50mg daily with plan to taper to discontinuation given mirta. Fasting lipid panel and glucose in AM. 04/25/2023: * continue paliperidone palmitate 234 mg IM Q4 wk - administered 04/24/2023, increased from home dose 156 mg * continue home medication olanzapine 15 mg QHS * continue home medication sertraline 100 mg daily * continue home medication trazodone 100 mg QHS * continue olanzapine ODT 10 mg Q6 hr PRN mirta or psychosis * continue lorazepam 2 mg PO Q6 hr PRN mirta 04/24/2023: The patient was admitted to the [facility] ([facility] unit) on q15 min checks (behavioral with suicide precautions) for safety. The patient will participate in group, recreational, and milieu therapies and will be offered additional individual and family sessions as clinically appropriate. A private room is medically necessary for the safety of self and others in light of her mirta and aggression. * increase paliperidone palmitate to 234 mg IM Q4 wk starting today * continue home medication olanzapine 15 mg QHS * continue home medication sertraline 100 mg daily * continue home medication trazodone 100 mg QHS * olanzapine ODT 10 mg Q6 hr PRN mirta or psychosis * lorazepam 2 mg PO Q6 hr PRN mirta Inventory Assets Strengths: supportive relationships, has local supports, intelligent Needs: safety and stabilization, medication adjustment, additional coping skills, increased outpatient services, case management Suicide Risk Level Suicide Risk Level: Moderate (q15 min suicide checks) (acute mirta with disorganized behaviors and delusions including attempt to jump from moving car on way to ED prior to admission, mood stabilizing, denying SI and feels safe on the unit, agrees to let staff know if she feels unsafe) Risk Factors Assessment Male: No : No Do You Have Access To A Gun?: No Health Problems: No Mental Health Diagnoses: Yes Substance Use Disorders: Yes Previous Attempt: No Family History of Suicide: No Previous Psychiatric Hospitalization: Yes Hopelessness: No Protective Factors Assessment : No Responsible for Young Children: No (pt's mother has temporary custody of infant daughter) Employed: No Stable Relationships: No Supportive Family: Yes Interval History Identifying Information DEANNE TREJO is a 37-year-old F who currently lives in [facility] with her mother, has a history of bipolar disorder, and was admitted on 04/24/23 02:53 on a 302 involuntary commitment for mirta and suicidal behavior. She was committed for up to 20 days at a 303 hearing on 04/25/2023. Chief Complaint "Really good". Review of Systems Sleep Information Total Hours of Sleep: 7.5 Meal Information Percent Meal Consumed - Breakfast: 100 Percent Meal Consumed - Lunch: 100 Percent Meal Consumed - Dinner: 100 Subjective Subjective Patient was seen & assessed and interval progress reviewed with treatment team nursing and social work. Attending all groups. Reports her mood as positive. Was pleasant and appropriate yesterday afternoon and evening. This morning and mid-d ay doing well without irritability. Met with me and discussed her medications, signs of mirta, ways to protect sleep. She notes that every year around this time she develops mirta which she attributes to it being near the anniversary of her father's , anniversary of 05/05 and the knowledge of upcoming hectic season of holiday events. She feels she is usually adherent with medication but that her family doesn't believe her because she's still develop mirta. She states she asks to get help during this current hospitalization for the first time because she felt she was in an episode of mirta. Reviewed incidence on the way to the hospital in which she opened the car door and told her mom "I wanted to be with the devil" as an example of her disorganization and impulsivity from mirta. She adamantly denies that this was a suicide attempt and denies any SI today or recently. She's very pleased with how well she's been sleeping and likes the olanzapine. Reviewed goal of eventually tapering off the olanzapine and just being on Invega once she is at a high enough dose to prevent breakthrough mood symptoms between injections. Apparently more tearful after family meeting after discussing her concerns about her step-father with her mother and frustration with living with them and having to follow all their rules. Wants to get her own apartment. Physical Exam Psychiatric Orientation: alert, oriented x 3 and cooperative Apperance: appropriately dressed, appropriately groomed and appeared stated age Eye Contact: good eye contact Motor Behavior: no abnormal motor movements Speech: + loud speech and normal rate/rhythm/volume of speech Affect: euthymic affect Mood: no depressed mood, no anxious mood and no irritable mood Thought Process: goal directed thought process and clear/coherent thought process Thought Content: reality based without delusions Suicidal Thoughts: denies suicidal thoughts, denies suicidal plan and denies suicidal intent Homicidal Thoughts: denies homicidal thoughts Hallucinations: no auditory hallucinations and no visual hallucinations Cognition: recent memory grossly intact, remote memory grossly intact and language grossly intact; + attention not intact Estimated Intelligence: average estimated intelligence Insight: + fair insight Judgment: + fair judgement Vital Signs (Past 24 Hours) Last Vital Signs Temp 36.8 C 04/29/23 06:46 Pulse 101 H 04/29/23 06:46 Resp 16 04/29/23 06:46 BP 107/70 04/29/23 06:46 Pulse Ox 100 04/27/23 06:52 O2 Del Method Room Air 04/27/23 06:52 Results & Data ([facility]) Current Inpatient Medications Current Inpatient Medications: Current Inpatient Medications Acetaminophen (Acetaminophen 325 Mg Tab) 650 mg PO Q4H PRN PRN Reason: Headache or Minor Fever Stop: 05/24/23 03:19 Al Hydrox/Mg Hydrox/Simethicone (Aluminum/Magnesium Susp 30 Ml Udc) 30 ml PO Q4H PRN PRN Reason: GI Upset Stop: 05/24/23 03:19 Bismuth Subsalicylate (Bismuth Subsalicylate Liqd 236 Ml) 15 ml PO PRN PRN PRN Reason: Loose Stool Stop: 05/24/23 03:19 Hydroxyzine HCl (Hydroxyzine Hcl 25 Mg Tab) 50 mg PO HSZ PRN PRN Reason: Insomnia Stop: 05/24/23 03:19 Last Admin: 04/25/23 21:32 Dose: 50 mg Hydroxyzine HCl (Hydroxyzine Hcl 25 Mg Tab) 25 mg PO Q4H PRN PRN Reason: Anxiety Stop: 05/24/23 03:19 Lorazepam (Lorazepam 1 Mg Tab) 2 mg PO Q6 PRN PRN Reason: mirta Stop: 05/24/23 11:50 Magnesium Hydroxide (Magnesium Hydroxide Susp 30 Ml Udc) 30 ml PO DAILY PRN PRN Reason: Constipation Stop: 05/24/23 03:19 Miscellaneous (Remove Nicoderm Patch) 1 each N/A DAILY@0859 [facility] Stop: 05/25/23 08:58 Last Admin: 04/29/23 08:20 Dose: 1 each Nicotine (Nicotine 21 Mg/24 Hr Tdsy) 21 mg TD QAM YANELIS Stop: 05/24/23 08:59 Last Admin: 04/29/23 08:20 Dose: 21 mg Olanzapine (Olanzapine Zydis 10 Mg Orally Dis. Tab) 10 mg PO Q6 PRN PRN Reason: Psychosis or Mirta Stop: 05/24/23 09:58 Last Admin: 04/25/23 08:11 Dose: 10 mg Olanzapine (Olanzapine 5 Mg Tablet) 15 mg PO HS YANELIS Stop: 05/24/23 21:59 Last Admin: 04/28/23 21:41 Dose: 15 mg Sodium Chloride (Sodium Chloride 0.65% Na Soln 45 Ml ([place])) 1 - 2 sprays NA PRN PRN PRN Reason: Nasal Dryness/Congestion Stop: 05/24/23 03:19 Trazodone HCl (Trazodone Hcl 100 Mg Tab) 100 mg PO HS YANELIS Stop: 05/24/23 21:59 Last Admin: 04/28/23 21:41 Dose: 100 mg Mental Health & Subst Abuse Tx Psychiatrist Name of Psychiatrist: Emily Prajapati Psychiatrist's Psychiatric Appointment Comment: [address] [place] [address] Therapist Name of Therapist: [facility] Therapist's Phone Number: [phone] Therapy Appointment Comment: [phone] [facility] [place] [address] Tie Puller Name of Tie Puller: None Post Discharge Appointments Primary Care Physician Name Of Family Doctor/PCP: [facility] Primary Care Provider Appointment Comment: [phone] [place] [place] [address]
[2023-04-29] MEDS: traZODone HCL 100 MG TAB PO SCH (21:44)
[2023-04-29] MEDS: OLANZapine 5 MG TABLET PO SCH (21:46)
[2023-04-30] MEDS: NICOTINE 21 MG/24 HR TDSY TD SCH (08:44)
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
== END 2023-04-30 14:00 | disposition home or self-care (01) | DRG 885 ==
LOC: ED 20:29 → 3S 04-24 02:53 → SUATTDRO 04-24 02:53 → 3S 04-24 03:13